=== PATIENT | male | born 1950 | race Caucasian/White ===

== ENCOUNTER 2019-07-28 11:30 | Outpatient (RCR) | payer MEDICARE, OTHER, SELFPAY ==
--- NOTE | 2019-06-03 14:28 | HP.PTEVAL ---
Patient's Visit Information GRAEME DURON is a 68 year old M referred to Physical Therapy by MADHAVI Farnsworth with a diagnosis of PD. Date of Evaluation: 06/03/19 Physical Therapist: DRISS Mccullough - Visit Plan Frequency: 2x /Week Duration: 4 Weeks Plan: 2X/ week for 4 weeks for balance activities, big movements, dual task movements, gait training with HEP - Subjective Findings: Dx since 2008. He uses a walking stick when he is out and about. He fell a couple days ago and he hurt his knees. Sometimes his PD meds work and others they don;t. They changed his meds and not sure they are helping. When he falls he feels like he is going fw and can not stop himself. He falls about 3-4X/ month. stairs: he goes recip with a hand rail. He also has a chair lift up his stairs. He has some trouble getting out of a chair. He has freezing episodes. He still drives. 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 He reports that he sleeps well. He notices that he is getting weaker in his arms and legs. He is not doing as much and keeps getting weaker. He does not do any exercises at home. He has an exercise bike at home. - Objective Gait: walks with decrease stride and decrease ability to cigar packer and picker his feel. Turns very slow with steppage shuffle. LE MMT: B hip flex, knee ext, knee flex, hip abd 4+/5, 1/2 normal ROM bridge, pt is bale toheel and toe raise holding onto the chair rail. FGA 11. Pt likes to freeze in the middle of turning 180 degrees and does not like to cigar packer and picker his feet. Sit to stand: pt not able to do so without the use of his UE's. Pt has trouble with rolling side to side with motor planning - Balance Scores Functional Gait Assessment Score: 11 % Disability: 63.3400 - Goals Goal 1:: I HEP including I riding his bike at home Goal Time Frame: 4-6 Weeks Goal 2:: Increase FGA by 5 points to decrease fall risk. Goal Time Frame: 4-6 Weeks Goal 3:: Be able to turn 180 degrees without hesitation or stopping his movement mid turn Goal Time Frame: 4-6 Weeks Goal 4:: Be able to sit to stand without using his arms to stand. Goal Time Frame: 4-6 Weeks - Rehabilitation Potential Rehabilitation Potential: Good - Anticipated Interventions Thank you for the opportunity to evaluate your patient. For Medicare and Medicare HMO plans, please review the plan of care and approve it. It will need to be FAXED BACK to us at [phone] for Medicare purposes. For Medicare only, by signing this I certify the plan of care. Please let me know if there are questions or concerns regarding this plan of care. Physician Signature: Date:
--- NOTE | 2019-07-02 12:45 | HP.PTREVAL_ITS ---
Rosalba Kaufman, NABIL-C, It has been my pleasure to treat GRAEME DURON over the last 8 visits for PD. Please see the progress note below for an update on the physical therapy plan of care! Subjective: Pt was trying to get his keys out of his pocket at the same time he was stepping down off the curb and landed on his walking stick and has a really sore spot on his R arm. Nothing else really hurts right now. He reports that there are weaks that he never falls and other times he has fallen 4 times in the same week. Pt feel that the is learning a lot of things that he can do at home. He is working on fw. bw and sw walks with the big steps and his is reminding him a lot at home. He is still driving and he feels safe driving. Objective/Function: sit to stand: pt is able to stand up without using his UE and has good balance when he does stand up. Turning 180 degrees: pt still does not sheepskin pickler his feet, has poor balance when turning and takes multiple shuffles to get turned 180 degrees. FGA: 12. Discussed in length about stopping and regaining balance and almost marching when he starts to fesinate with his feet at a door way and also picking up feet with turning 180 degrees Plan Plan: 2X/ week for 3 additional weeks for balance activities, ( include desc ending and ascending curb stesp, turning 180 degrees ( picking up feet almost like a march) ( include teaching pt how to break his ability to not take big steps and multiple attemots to start) big movements, dual task movements, gait training with HEP Goals Goal 1:: I HEP including I riding his bike at home Goal Time Frame: 4-6 Weeks Goal Progress: Progressing Goal 2:: Increase FGA by 5 points to decrease fall risk. Goal Time Frame: 4-6 Weeks Goal 3:: Be able to turn 180 degrees without hesitation or stopping his movement mid turn Goal Time Frame: 4-6 Weeks Goal Progress: Progressing Goal 4:: Be able to sit to stand without using his arms to stand. Goal Time Frame: 4-6 Weeks Goal Progress: Goal Met Anticipated Interventions Please do not hesitate to contact me at [phone] by phone or if you have questions or concerns regarding this new plan of care! Sincerely, Megan Vega, MPT
--- NOTE | 2019-07-28 11:57 | HP.PTDCSUM ---
HP - PT D/C Summary It has been my pleasure to treat GRAEME DURON under orders from ROSALVA FarnsworthC, for the diagnosis of PD for a total of 14 visit(s). Discharge Date: 07/28/19 Please see the following information for a summary of their discharge status. - Subjective Subjective: Pt reports that he has a bike and TM at home and will start exercising at home - Pain R SH Pain Intensity (Out of 10): 6 LB Pain Intensity (Out of 10): 4 - Overall Improvement % Improvement: 100 - Objective Objective/Function: LE MMT: B hip flex, hip abdm knee flex and knee ext and hip ext 5/5. Pt is now able to roll side to side in bed without issue or hesitation. FGA:21. Sit to stand: able without using arms to help on first attempt. Discussed DTD and pt wishes to be places on the wait list - Goals Goal 1:: I HEP including I riding his bike at home Goal Progress: Goal Met Goal 2:: Increase FGA by 5 points to decrease fall risk. Goal Progress: Goal Met Goal 3:: Be able to turn 180 degrees without hesitation or stopping his movement mid turn Goal Progress: Goal Met Goal 4:: Be able to sit to stand without using his arms to stand. Goal Progress: Goal Met - Plan Plan: DC PT/ Pt to go home and continue with exercises on his own. Pt is on the wait list for DTD class - D/C Information Discharge Comments: DC PT If there are questions or concerns regarding this patient's physical therapy, please feel free to call me at [phone]. Thank you for the referral of this patient. Sincerely, Megan Vega, MPT
== END 2019-07-28 19:00 | disposition home or self-care (01) ==
LOC: PT 11:30
PROVIDERS: Family Provider Family Medicine; PCP Family Medicine; Referring Provider Nurse Practitioner Family; Visit Provider Nurse Practitioner Family
DX: G20 Parkinson's disease (principal)
CPT/HCPCS: 97110; 97161; 97530

== ENCOUNTER 2019-10-01 16:55 | Emergency (ER) | payer MEDICARE, OTHER, SELFPAY ==
[2019-10-01 16:57] VITALS: BP 140/83; PULSE 88; RESP 15; TEMP 36.6; O2SAT 97; BMI 29.9
[2019-10-01 16:59] VITALS: BP 140/83; PULSE 87; RESP 20; O2SAT 97
--- NOTE | 2019-10-01 17:35 | CT_ITS ---
STUDY: CT ABDOMEN AND PELVIS WITHOUT CONTRAST REASON FOR EXAM: Male, 69 years old. HERNIA PAIN LOWER ABDOMEN. Hx of Parkinson''s RADIATION DOSAGE (If Supplied By Facility): CTDIvol = ( 9.35 ) mGy, DLP = ( 432.25 ) mGycm TECHNIQUE: Transaxial images were obtained from the dome of the diaphragm to the symphysis pubis without oral contrast, and without intravenous contrast. Sagittal and coronal images were reconstructed. Individualized dose optimization techniques were used for this CT. COMPARISON: None. FINDINGS: The visualized lung bases are unremarkable. The visualized portions of the heart are within normal limits. Normal liver. Normal gallbladder and extrahepatic biliary system. Normal spleen. Normal pancreas. Normal bilateral adrenal glands. 2 cm parapelvic cyst in the right kidney. 1.5 cm parapelvic cyst in the left kidney. Normal visualized stomach. Normal small intestine. Fecal retention in the colon. The appendix is visualized and appears normal. Calcified abdominal aorta. Focal infrarenal abdominal aortic aneurysm measuring 2.7 cm. Normal inferior vena cava. Normal retroperitoneum. Normal urinary bladder. The prostate measures 4.3 x 5.3 cm. Fatty density at the inguinal canals. A loop of small bowel is noted extending into the right inguinal canal. Normal abdominal wall. Mild degenerative vertebral changes. CT/Abdomen/Pelvis without Cont IMPRESSION: Diffuse colonic fecal retention. Parapelvic renal cysts bilaterally. A loop of small bowel is noted extending into the right inguinal canal. No sign of bowel obstruction. Focal small infrarenal abdominal aortic aneurysm. Electronically Signed: Alberto Clarke DO at 18:28 EST Tel [phone], Service support ,
[2019-10-01 17:58] LABS: Absolute Lymphocyte Count 1.17 X10^3/uL (0.83-4.51); Absolute Neutrophil Count 4.3 X10^3/uL (2.0-7.7); Basophil# 0.05 X10^3/uL; Basophil% 0.7 % (0-1); Eosinophil# 0.62 X10^3/uL; Hemoglobin 13.5 g/dL (13.0-16.5); Lymphocyte # 1.17 X10^3/ul (4.0); Mean Corp Hgb Conc 33.8 g/dL (32-36); Mean Corpuscular Hgb 32.4 pg (27.0-32.0); Mean Corpuscular Volume 95.9 fL (80-94); Mean Platelet Vol. 9.2 fl (6.2-12.0); Monocyte# 0.77 X10^3/uL; Monocyte% 11.2 % (0-10); NRBC Flagged by Analyzer 0 % (0-5); Neutrophil # 4.27 X10^3/uL (2.7-7.7); Platelet Count 218 K/mm3 (150-450); RBC Distribution Width CV 11.6 % (11.6-14.6); RBC Distribution Width SD 41.1 fl (35.1-43.9); Red Blood Count 4.17 M/mm3 (4.6-6.2); White Blood Count 6.9 K/mm3 (4.4-11.0)
[2019-10-01 18:18] LABS: ALB/GLOB Ratio 1.1 RATIO (0.9-2.4); AST(SGOT) 15 U/L (15-37); Alanine Aminotransfer ALT/SGPT 9 U/L (16-61); Albumin, Serum 3.4 g/dL (3.2-5.0); Alkaline Phosphatase 77 U/L (45-117); Anion Gap 4 (5-15); BUN 23 mg/dL (7-18); BUN/Creat Ratio 21.5 RATIO (10-20); Calcium,Total 8.7 mg/dL (8.5-10.1); Chloride 109 mmol/L (98-107); Creatinine, Serum 1.07 mg/dL (0.70-1.30); EST Glomerular Filtration Rate 72 mL/min (>60); Est Glom Filt Rate - Afr Amer 88 mL/min (>60); Estimated Creatinine Clearance 65.38 ml/min; Globulin 3.1 g/dL (2.2-4.2); Glucose 116 mg/dL (74-106); Lipase 135 U/L (73-393); Potassium 4.1 mmol/L (3.5-5.1); Protein, Total 6.5 g/dL (6.4-8.2); Sodium Level 141 mmol/L (136-145)
[2019-10-01 19:04] LABS: Bacteria 0 SEEN /hpf (None Seen); Mucous, Urine 0 SEEN /hpf (<or=2+); Red Blood Cells-Urine 0 SEEN /hpf (0-5); White Blood Cells 0 SEEN /hpf (0-5)
[2019-10-01 19:10] LABS: Color, Urine Yellow (Yellow); Glucose, Dipstick Normal (Normal); Ketone-Dipstick 5 mg/dl (Negative); Leukocyte Esterase-Dipstick 25 /ul (Negative); Nitrite-Dipstick Negative (Negative); Occult Blood-Urine Negative /ul (Negative); Protein-Dipstick Negative (Negative); Urine Bilirubin Dipstick Negative (Negative); Urine Clarity Cloudy (Clear); Urine Urobilinogen 1 mg/dl (Normal)
[2019-10-01 19:32] LABS: Amorphous Sediment 3+; Squamous Epithelial Cells - UA 0-5 SEEN /hpf (0-5)
[2019-10-01 20:44] VITALS: BP 134/107; PULSE 79; RESP 15; O2SAT 96
--- NOTE | 2019-10-01 21:07 | ED.DCSUM_ITS ---
- ER Visit Summary Date of Service: 10/01/19 Chief Complaint: Abdominal pain History of Present Illness: The patient is a 69 M who presents with abdominal pain that began today. Patient states the pain is over the lower abdomen. Patient states he knows he has hernias in his lower abdomen and felt like the hernia on his right side was more swollen today. Patient states this is where the pain was earlier today. Patient called EMS. Patient states that long term to the emergency department while in the squad his pain resolved and he has not had any further pain. Patient denies any dysuria or hematuria. Patient admits to urinary frequency. Patient denies any nausea or vomiting. Patient denies any diarrhea, melena, or hematochezia. Physical Examination: Vital signs are stable. Patient is afebrile. Patient is in no acute distress. Oral mucosa is pink and moist. Neck is supple. Trachea is midline. There is no JVD. Heart was regular rate and rhythm. Lungs are clear and equal bilaterally. Abdomen is soft. Bowel sounds are normal. There is some mild right lower abdominal tenderness. There is no rebound or guarding noted. There is no tenderness over the right inguinal canal. Cranial nerves II through XII are intact. There are no focal motor or sensory deficits noted. Extremities are intact. There is no calf tenderness or edema. Test Results: CBC was normal. Basic metabolic profile was normal. Urinalysis does not show any evidence of urinary tract infection. CT scan of the abdomen and pelvis was obtained. There is colonic fecal retention. There is a right inguinal hernia containing bowel but there is no bowel obstruction. Emergency Department Course and Treatment: Patient was feeling better on reevaluation. Patient had no further episodes of pain here in the emergency department. Patient was instructed to follow-up with his primary care physician in 5 to 7 days. Patient was instructed to follow-up with his surgeon as needed. Patient understood and was agreeable with the plan. All questions were answered. Disposition: Discharge home Impression: Abdominal pain This note was generated with [employer] dictation software. It may contain incorrect words, spelling, and punctuation that were not noted in review of the chart prior to signing ED Disposition - Plan for ED Patient: Disposition: Home or Assisted Living Diagnosis: Abdominal pain Instructions: CONSTIPATION (Adult), ABDOMINAL PAIN, Unkown Cause, (Male) Referrals: Bharathi Lyle MD [Primary Care Provider] - 3-5 Days
[2019-10-01 21:29] VITALS: BP 139/93; PULSE 82; RESP 21; O2SAT 97
== END 2019-10-01 21:30 | disposition home or self-care (01) ==
PROVIDERS: Emergency Provider Emergency Medicine; PCP Family Medicine; Referring Provider Family Medicine
DX: R10.30 Lower abdominal pain, unspecified (principal); R35.0 Frequency of micturition; K40.91 Unilateral inguinal hernia, without obstruction or gangrene, recurrent; G20 Parkinson's disease; Z79.82 Long term (current) use of aspirin; Z79.899 Other long term (current) drug therapy; F17.290 Nicotine dependence, other tobacco product, uncomplicated
CPT/HCPCS: 74176; 80053; 81001; 83690; 85025; 99285; J7030; A4216

== ENCOUNTER 2019-11-19 08:55 | Emergency (ER) | payer MEDICARE, OTHER, SELFPAY ==
[2019-11-19 08:56] VITALS: BP 117/80; PULSE 85; RESP 16; O2SAT 97
[2019-11-19 08:57] VITALS: BP 123/41; PULSE 90; RESP 17; TEMP 37; O2SAT 96; BMI 28.9
--- NOTE | 2019-11-19 09:17 | ED.DCSUM_ITS ---
- ER Visit Summary Date of Service: 11/19/19 Chief Complaint: Right inguinal and abdominal pain History of Present Illness: The patient is a 69 M who presents with right inguinal and right lower abdominal pain that began this morning. Patient states the pain woke him up. Patient states he has a history of a hernia in the right inguinal area. Patient states that he is usually able to reduce it on his own. Patient states that today he was unable to reduce it. Patient states the pain is getting progressively worse. Patient denies any nausea or vomiting. Patient denies any diarrhea. Patient denies any melena or hematochezia. Patient denies any dysuria or hematuria. Patient denies any radiation of the pain. Patient denies any fevers or chills. Physical Examination: Vital signs are stable. Patient is afebrile. Patient is in no acute distress. Oral mucosa is pink and moist. Neck is supple. Trachea is midline. There is no JVD. Heart was regular rate and rhythm. Lungs are clear and equal bilaterally. Abdomen is soft. Bowel sounds are normal. There is right lower quadrant tenderness. There is no rebound or guarding noted. There is a right inguinal hernia. There is tenderness to palpation over this. There is no erythema or warmth over this. Cranial nerves II through XII are intact. There are no focal motor or sensory deficits noted. Test Results: CBC and comprehensive metabolic profile were obtained and were essentially within normal limits. Lactate was normal. Emergency Department Course and Treatment: Patient was given morphine and Zofran here. Patient is feeling better. Patient was placed in Trendelenburg position. The hernia was able to be reduced. Patient felt better. Patient was ambulated here in the emergency department. Patient did not have recurrence of his hernia. Patient states he has an appoint with Dr. Tapia. Patient was instructed to follow-up with him in 5 to 7 days for evaluation of herniorrhaphy. Patient and family understood and were agreeable with the plan. All questions were answered. Disposition: Discharge home Impression: 1. Right inguinal hernia This note was generated with [employer] Alertation software. It may contain incorrect words, spelling, and punctuation that were not noted in review of the chart prior to signing ED Disposition - Plan for ED Patient: Disposition: Home or Assisted Living Diagnosis: Right inguinal hernia Instructions: HERNIA (Inguinal, Ventral, Umbilical) Referrals: Bharathi Lyle MD [Primary Care Provider] - 5-7 Days Earnest Tapia MD [STAFF PHYSICIAN] - 3-5 Days
[2019-11-19 09:32] LABS: Absolute Lymphocyte Count 0.93 X10^3/uL (0.83-4.51); Absolute Neutrophil Count 8.5 X10^3/uL (2.0-7.7); Basophil# 0.04 X10^3/uL; Basophil% 0.4 % (0-1); Eosinophil# 0.18 X10^3/uL; Eosinophils% 1.7 % (0-5); Hematocrit 44.5 % (40-54); Hemoglobin 14.7 g/dL (13.0-16.5); Lymphocyte # 0.93 X10^3/ul (4.0); Mean Corpuscular Hgb 31.3 pg (27.0-32.0); Mean Corpuscular Volume 94.7 fL (80-94); Mean Platelet Vol. 9.4 fl (6.2-12.0); Monocyte# 0.74 X10^3/uL; Monocyte% 7.1 % (0-10); NRBC Flagged by Analyzer 0 % (0-5); Neutrophil # 8.46 X10^3/uL (2.7-7.7); Neutrophil % 81.5 % (47-70); Platelet Count 250 K/mm3 (150-450); RBC Distribution Width CV 11.9 % (11.6-14.6); RBC Distribution Width SD 41.1 fl (35.1-43.9); White Blood Count 10.4 K/mm3 (4.4-11.0)
[2019-11-19 09:43] LABS: ALB/GLOB Ratio 1.1 RATIO (0.9-2.4); AST(SGOT) 17 U/L (15-37); Alanine Aminotransfer ALT/SGPT 9 U/L (16-61); Albumin, Serum 3.9 g/dL (3.2-5.0); Alkaline Phosphatase 84 U/L (45-117); Anion Gap 3 (5-15); BUN 23 mg/dL (7-18); BUN/Creat Ratio 22.3 RATIO (10-20); Calcium,Total 9.4 mg/dL (8.5-10.1); Chloride 104 mmol/L (98-107); Creatinine, Serum 1.03 mg/dL (0.70-1.30); EST Glomerular Filtration Rate 76 mL/min (>60); Est Glom Filt Rate - Afr Amer 92 mL/min (>60); Estimated Creatinine Clearance 70.06 ml/min; Globulin 3.4 g/dL (2.2-4.2); Glucose 123 mg/dL (74-106); Potassium 4.3 mmol/L (3.5-5.1); Protein, Total 7.3 g/dL (6.4-8.2); Sodium Level 137 mmol/L (136-145)
[2019-11-19] MEDS: Ondansetron 4 MG/2 ML Vial IV (09:43)
[2019-11-19] MEDS: Morphine 4 MG/ML Syringe IV (09:43)
[2019-11-19 09:55] LABS: Lactic Acid 1.7 mmol/L (0.4-1.9)
[2019-11-19 11:13] VITALS: BP 142/80; PULSE 84; RESP 18; O2SAT 97
== END 2019-11-19 11:14 | disposition home or self-care (01) ==
PROVIDERS: Emergency Provider Emergency Medicine; PCP Family Medicine
DX: K40.90 Unilateral inguinal hernia, without obstruction or gangrene, not specified as recurrent (principal); G20 Parkinson's disease; F17.200 Nicotine dependence, unspecified, uncomplicated
CPT/HCPCS: 80053; 83605; 85025; 96374; 96375; 99284; A4216; J2405

== ENCOUNTER 2020-04-19 13:11 | Emergency (ER) | payer MEDICARE, OTHER, SELFPAY ==
[2020-04-19 13:12] VITALS: BP 138/79; PULSE 82; RESP 16; TEMP 36.6; O2SAT 98; BMI 30.1
--- NOTE | 2020-04-19 13:31 | ED.VIS.GEN ---
History of Present Illness Chief Complaint: Abd Pain Informant: Patient Onset: Yesterday Current Severity: Mild Maximum Severity: Moderate Narrative: Patient presents with right lower quadrant pain that started last evening. He has a known inguinal hernia. He states he has not been able to reduce it since last evening. He was initially supposed to see Dr. Tapia regarding surgery in November, but this was delayed secondary to the Covid pandemic. Patient denies vomiting. He does not believe he passed gas or had a bowel movement today. - Past Medical History (1) Parkinsons Status: Chronic (2) GERD (gastroesophageal reflux disease) Status: Chronic (3) Right inguinal hernia Status: Chronic Past Medical History - Allergies and Home Meds Allergies/Adverse Reactions: Allergies Penicillins [PCN] Allergy (Verified 04/19/20 13:15) Unknown ALLERGY SINCE CHILDHOOD Primary Care Physician: Earnest Tapia MD [STAFF PHYSICIAN] - As soon as possible Prior records reviewed: Yes Lives: Spouse/ Significant Other Smoking Status: Current every day smoker Review of Systems General: Denies: Chills, Fever Eyes: Denies: Visual changes - bilaterally ENT: Denies: Bilateral ear pain Cardiovascular: Denies: Chest pain Respiratory: Denies: Dyspnea, Cough Gastrointestinal: Reports: Abdominal pain. Denies: Nausea, Vomiting Genitourinary: Denies: Dysuria Hematologic: Denies: Easy bruising, Easy bleeding Allergy: Denies: Uticaria Physical Exam Vital Signs/Narrative: Vital Signs Temp Pulse Resp BP Pulse Ox 04/19/20 13:12 97.8 F 82 16 138/79 H 98 Inital Vital Signs reviewed: Yes General: Well nourished, Well developed Head: Normocephalic ENT: Moist mucous membranes Neck: Supple Cardiovascular: Regular rate, Regular rhythm Respiratory: No distress, CTA bilaterally Abdomen: Soft, Nontender, - - Hernia noted to the right groin line. Area is mildly tender to touch. Skin: Normal color Neurological: Alert, Oriented x3 Psychological: Normal affect Diagnostic/Tx/Re-eval Laboratory Results 04/19/20 04/19/20 04/19/20 13:17 13:17 13:55 WBC 8.0 RBC 4.10 L Hgb 13.2 Hct 39.7 L MCV 96.8 H MCH 32.2 H MCHC 33.2 RDW Std Deviation 42.3 RDW Coeff of Maryjane 11.9 Plt Count 225 MPV 9.7 Immature Gran % (Auto) 0.400 Neut % (Auto) 72.7 H Lymph % (Auto) 13.8 L [place] % (Auto) 8.3 Eos % (Auto) 4.3 Baso % (Auto) 0.5 Absolute Neuts (auto) 5.8 Absolute Lymphs (auto) 1.10 Nucleated RBC % 0 Sodium 140 Potassium 3.7 Chloride 107 Carbon Dioxide 30.0 Anion Gap 3 L BUN 26 H Creatinine 1.07 Estim Creat Clear Calc 65.38 Est GFR (MDRD) Af Amer 88 Est GFR (MDRD) Non-Af 72 BUN/Creatinine Ratio 24.3 H Glucose 103 Lactic Acid 0.6 Calcium 8.5 - Medical Decision Making Patient was ordered morphine and Zofran as well as ice pack to the groin and to place him in Trendelenburg position. Patient had ice pack in Trendelenburg position and hernia spontaneously reduced. He was never given the morphine. At this time patient sitting upright in bed no acute distress. Right groin examination is unremarkable. He will follow-up with Dr. Pardo as an outpatient. ED Disposition - Plan for ED Patient: Disposition: Home or Assisted Living Diagnosis: Right inguinal hernia Instructions: ED Hernia Inguinal Referrals: Earnest Tapia MD [STAFF PHYSICIAN] - As soon as possible
[2020-04-19 13:38] LABS: Absolute Neutrophil Count 5.8 X10^3/uL (2.0-7.7); Basophil# 0.04 X10^3/uL; Basophil% 0.5 % (0-1); Eosinophil# 0.34 X10^3/uL; Eosinophils% 4.3 % (0-5); Hematocrit 39.7 % (40-54); Hemoglobin 13.2 g/dL (13.0-16.5); Lymphocyte % 13.8 % (19-41); Mean Corp Hgb Conc 33.2 g/dL (32-36); Mean Corpuscular Hgb 32.2 pg (27.0-32.0); Mean Corpuscular Volume 96.8 fL (80-94); Mean Platelet Vol. 9.7 fl (6.2-12.0); Monocyte# 0.66 X10^3/uL; Monocyte% 8.3 % (0-10); NRBC Flagged by Analyzer 0 % (0-5); Neutrophil # 5.82 X10^3/uL (2.7-7.7); Neutrophil % 72.7 % (47-70); Platelet Count 225 K/mm3 (150-450); RBC Distribution Width CV 11.9 % (11.6-14.6); RBC Distribution Width SD 42.3 fl (35.1-43.9)
[2020-04-19 13:46] LABS: Anion Gap 3 (5-15); BUN 26 mg/dL (7-18); BUN/Creat Ratio 24.3 RATIO (10-20); Calcium,Total 8.5 mg/dL (8.5-10.1); Chloride 107 mmol/L (98-107); Creatinine, Serum 1.07 mg/dL (0.70-1.30); EST Glomerular Filtration Rate 72 mL/min (>60); Est Glom Filt Rate - Afr Amer 88 mL/min (>60); Estimated Creatinine Clearance 65.38 ml/min; Glucose 103 mg/dL (74-106); Potassium 3.7 mmol/L (3.5-5.1); Sodium Level 140 mmol/L (136-145)
[2020-04-19 14:26] LABS: Lactic Acid 0.6 mmol/L (0.4-1.9)
[2020-04-19 15:48] VITALS: BP 103/62; PULSE 74; RESP 15; O2SAT 98
== END 2020-04-19 15:49 | disposition home or self-care (01) ==
PROVIDERS: Emergency Provider Emergency Medicine; PCP Family Medicine
DX: K40.90 Unilateral inguinal hernia, without obstruction or gangrene, not specified as recurrent (principal); G20 Parkinson's disease; K21.9 Gastro-esophageal reflux disease without esophagitis; F17.200 Nicotine dependence, unspecified, uncomplicated; Z88.0 Allergy status to penicillin
CPT/HCPCS: 80048; 83605; 85025; 96361; 96374; 96375; 99285; A4216

== ENCOUNTER 2020-05-17 09:00 | Outpatient (RCR) | payer MEDICARE, OTHER, SELFPAY ==
--- NOTE | 2020-04-21 13:55 | HP.PTEVAL ---
Patient's Visit Information GRAEME DURON II is a 69 year old M referred to Physical Therapy by MADHAVI Farnsworth with a diagnosis of PD. Date of Evaluation: 04/21/20 Physical Therapist: DRISS Mccullough - Visit Plan Frequency: 2x /Week Duration: 2 Months Plan: 2X/ week for stairs, gait training, 180 degree turns, opening doors and walking through a doorway, supine to sit and sit to supine transfers, balance activities, dual tasking activities with HEP - Subjective Pt reports that his 2 Dr's disagree about him being over medicated. He gave up on doing his regular exercise and all his pants have knee patches becuase he has been falling a lot. The best he has done was fall 3 X in one day. The last time he fell was last week while he was walking in his barn. He did not get hurt other than a bruised rib. He has a hard time remembering to take his walking stick. He has steps at home and uses them everyday and has a chair riser on the steps and he uses it most of the time. He is able to get up off the floor when he falls. He is still driving. He reports that he has some coordingation issues such as moving his leg and opening the door at the same time. No Hallucinations. - Objective Gait: walks with a walking stick with increase B feet shuffle and decrease stride length. Occ veering present. Pt struggles with shuffled gait with turning 180 degrees and when coming to a door way he shuffles and has a hard time advancing through the doorway especially if he has to hold a door open. LE MMT: B hip flex 4+/5, B knee flex 4+/5, B knee ext, B hip abd 4+/5, Bridge 1/2 normal ROM. Sit to supine... pt struggles to get legs up and get supine. Pt struggles to go from supine to sit. Sit to stand: Able to get up without using UE on 3 rd attempt with a lot of effort. Stairs: up and down on occ recip with a walking stick and one hand rails with min A. TU.48 seconds. FGA: 10 - Balance Scores Functional Gait Assessment Score: 10 % Disability: 66.6700 - Goals Goal 1:: I HEP Goal Time Frame: 4-6 Weeks Goal 2:: Be able to go from sitting to supine and supine to sitting with ease and not a struggle on first attempt Goal Time Frame: 4-6 Weeks Goal 3:: Be able to walk 200 feet without shuffling with least restrictive device with CGA Goal Time Frame: 4-6 Weeks Goal 4:: Be able to walk through a doorway, having to open and hold open the door, without freezing on first attempt 3/3 times Goal Time Frame: 4-6 Weeks Goal 5:: Be able to turn 180 dgrees such as when turning around when walking or to square up to a chair without shuffling or mini steppage gait Goal Time Frame: 4-6 Weeks Goal 6:: Be able to go up and down stairs recip with least restircitive device with CGA Goal Time Frame: 4-6 Weeks - Anticipated Interventions Patient/Client Instruction: Educate patient on: Condition, Plan of Care For the Purpose of:: To improve nutrient delivery to tissue, To increase oxygenation perfusion, To improve muscle performance and motor function, To improve ability to perform ADL's, To increase tolerance to activity/condition/position, To improve performance and independence with ADL's, To decrease level of supervision to perform tasks, To improve ability of physical actions for home/community/work/leisure, To improve gait and locomotor functions, To increase flexibility/ROM, To improve endurance, To improve balance, To improve safety with gait, To assume or resume ADL's, To improve safety, To foster healthy habits, To improve decision making, To improve self management, To improve tolerance to ADL's Therapeutic Exercise to Include: Strength training, Endurance training, Balance training, Body mechanics, Postural training, Flexibilty training, Gait and locomotor training, Neuromotor development, Active ROM For the Purpose of:: To improve ability to perform ADL's, To increase tolerance to activity/condition/position, To improve performance and independence with ADL's, To decrease level of supervision to perform tasks, To improve ability of physical actions for home/community/work/leisure, To improve gait and locomotor functions, To improve health of tissue, To increase flexibility/ROM, To improve endurance, To improve balance, To improve safety with gait, To improve safety, To foster healthy habits, To improve decision making, To improve ability to perform tasks related to life management, To improve tolerance to ADL's Functional Training to Include: Gait training For the Purpose of:: To improve gait and locomotor functions, To improve safety with gait Thank you for the opportunity to evaluate your patient. For Medicare and Medicare HMO plans, please review the plan of care and approve it. It will need to be FAXED BACK to us at [phone] for Medicare purposes. For Medicare only, by signing this I certify the plan of care. Please let me know if there are questions or concerns regarding this plan of care. Physician Signature: Date:
--- NOTE | 2020-07-07 12:36 | HP.PTDCNRP_ITS ---
GRAEME DURON II was seen in my office for initial evaluation on 04/21/20. The following Plan of Care was established for this patient: Initial Frequency: 2x /Week Initial Duration: 2 Months Patient/Client Instruction: Educate patient on: Condition, Plan of Care For the Purpose of:: To improve nutrient delivery to tissue, To increase oxygenation perfusion, To improve muscle performance and motor function, To improve ability to perform ADL's, To increase tolerance to activity/ condition/position, To improve performance and independence with ADL's, To decrease level of supervision to perform tasks, To improve ability of physical actions for home/community/work/leisure, To improve gait and locomotor functions, To increase flexibility/ROM, To improve endurance, To improve balance, To improve safety with gait, To assume or resume ADL's, To improve safety, To foster healthy habits, To improve decision making, To improve self management, To improve tolerance to ADL's Therapeutic Exercise to Include: Strength training, Endurance training, Balance training, Body mechanics, Postural training, Flexibilty training, Gait and locomotor training, Neuromotor development, Active ROM For the Purpose of:: To improve ability to perform ADL's, To increase tolerance to activity/condition/position, To improve performance and independence with ADL's, To decrease level of supervision to perform tasks, To improve ability of physical actions for home/community/work/leisure, To improve gait and locomotor functions, To improve health of tissue, To increase flexibility/ROM, To improve endurance, To improve balance, To improve safety with gait, To improve safety, To foster healthy habits, To improve decision making, To improve ability to perform tasks related to life management, To improve tolerance to ADL's Functional Training to Include: Gait training For the Purpose of:: To improve gait and locomotor functions, To improve safety with gait This patient was last seen in our office 05/17/20. Pertinent comments regarding their Physical therapy will appear below: DC PT as pt was in the hospital and a new POC would need to be established when the pt decides to return back to PT. At this point I will be discontinuing this patient from physical therapy. I would be happy to see this patient again in the future if found appropriate by the physician. Thank you! Megan Vega, MPT
== END 2020-05-17 19:00 | disposition home or self-care (01) ==
LOC: PT 09:00
PROVIDERS: PCP Family Medicine; Referring Provider Nurse Practitioner Family; Visit Provider Nurse Practitioner Family
DX: G20 Parkinson's disease (principal)
CPT/HCPCS: 97110; 97161

== ENCOUNTER 2020-06-11 17:55 | Inpatient (IN) | payer MEDICARE, OTHER, SELFPAY ==
[2020-06-11 17:56] VITALS: BP 165/84; PULSE 88; RESP 16; TEMP 37.1; O2SAT 96; BMI 28.0
--- NOTE | 2020-06-11 18:52 | EKG12_ITS ---
Test Reason : GEN ILLNESS Blood Pressure : / mmHG Vent. Rate : 082 BPM Atrial Rate : 082 BPM P-R Int : 196 ms QRS Dur : 094 ms QT Int : 378 ms P-R-T Axes : 053 011 015 degrees QTc Int : 441 ms Normal sinus rhythm Normal ECG Confirmed by ANGELICA COHEN, SADIE ([id number]), subeditor LING TRUJILLO ([id number]) on 06/16/2020 8:37:41 AM Referred By: Sean Ricks Confirmed By:SADIE DOMINGUEZ MD
--- NOTE | 2020-06-11 18:58 | ED.DCSUM_ITS ---
History of Present Illness Chief Complaint: General Illness Informant: Patient, Family Narrative: Patient is a 69-year-old male with a history of Parkinson's disorder who presents to the emergency department for generalized weakness. The symptoms have been present over the past couple weeks but progressively getting worse. He states that around 3:00 PM he feels that he has absolutely no energy and has difficult time getting around. Until he falls asleep and wakes up the next morning he starts to feel better at that time. He did see his neurologist for this complaint and had a decrease in his Requip. This was changed last week. Sunday he did start to feel better after this but then his symptoms recurred over the past 4 days. He denies any other symptoms including any headache or vision changes. No chest pain, shortness of breath or heart palpitations. Denies any recent illnesses including any cough, cold, congestion. No fevers or chills. Denies any diarrhea or nausea/vomiting. He does have some urinary frequency. He does have a history of BPH. Past Medical History - Allergies and Home Meds Allergies/Adverse Reactions: Allergies Penicillins [PCN] Allergy (Verified 06/11/20 21:18) Unknown ALLERGY SINCE CHILDHOOD Past Medical History: - - Parkinson's, BPH Smoking Status: Never smoker Review of Systems All systems negative except as indicated General: Reports: Malaise. Denies: Chills, Fever, Sweats Eyes: Denies: Visual changes - bilaterally, Diplopia ENT: Denies: Rhinorrhea, Sore throat Cardiovascular: Denies: Chest pain, Palpitations Respiratory: Denies: Dyspnea, Cough, Dyspnea on exertion Gastrointestinal: Denies: Abdominal pain, Nausea, Vomiting, Diarrhea, Melena, Hematochezia Genitourinary: Reports: Frequency. Denies: Dysuria, Hematuria Musculoskeletal: Denies: Back pain, Extremity Pain Skin: Denies: Rash, Wounds Neurological: Reports: Weakness - Generalized. Denies: Headache, Numbness Physical Exam Vital Signs/Narrative: Vital Signs Temp Pulse Resp BP Pulse Ox 06/11/20 17:56 98.8 F 88 16 165/84 H 96 Inital Vital Signs reviewed: Yes General: Well nourished, Well developed, No Acute Distress Head: Normocephalic, Atraumatic Eyes: Perrl, EOMI ENT: Moist mucous membranes, No rhinorrhea Neck: Supple, Nontender Cardiovascular: Regular rate, Regular rhythm, No murmurs Respiratory: No distress, CTA bilaterally, Chest nontender Abdomen: Soft, Nontender, Nondistended, Normal bowel sounds Back: Nontender, Normal Inspection Extremities: Nontender, No edema Skin: Normal color, No rash Neurological: Alert, Oriented x3, Cranial nerves II-XII grossly intact, Normal Strength, Normal Sensation, - - Intentional tremor. 5 out of 5 muscle strength in all 4 extremities. Psychological: Normal affect, Normal Mood Diagnostic/Tx/Re-eval - EKG Initial EKG Interpretation: - - Rate of 82 bpm and normal sinus rhythm. Normal intervals. Normal axis. No ST elevations or depressions appreciated. No T wave abnormalities. - Medical Decision Making Patient presents to the ED for generalized weakness. Upon arrival to the emerge department vital signs within normal limits. He does not appear in any acute distress. Has no focal findings. Will check basic lab work along with EKG, chest x-ray and urinalysis. Patient's work-up did not reveal any reason to explain his significant weakness. This is generalized. He has been having a very difficult time taking care of himself at home. Family at bedside does not feel like he is getting appropriate care at home. His is the only other person lives in the home and she has a history of strokes and currently has a fractured clavicle. Patient is agreeable to possible placement for rehab services. Will bring into the hospital for further evaluation and management this time. He understands and is agreeable this plan. ED Disposition - Plan for ED Patient: Disposition: Acute Care Hospital [facility] Diagnosis: Generalized weakness, Parkinson's disease
--- NOTE | 2020-06-11 19:03 | RAD_ITS ---
STUDY: X-RAY CHEST REASON FOR EXAM: Male, 69 years old. PT REPORTS GENERALIZED WEAKNESS, LETHARGY AND LOSS OF APPETITE. TECHNIQUE: AP portable COMPARISON: 06/03/2017 FINDINGS: Lungs are mildly hyperinflated and there is mild interstitial thickening in the mid and lower lung zones. There is no demonstrated pleural abnormality. Normal size heart. Normal mediastinum and cinthya. Normal visualized pulmonary arteries. Tortuous mildly calcified aortic arch and descending thoracic aorta. Dorsal spine demonstrates mild scoliosis and degenerative change as well as multilevel chronic compression deformities... Normal visualized ribs, clavicles, and shoulders. There is no demonstrated abnormality of the visualized soft tissue structures of the upper abdomen. RAD/Chest 1 View (Portable) IMPRESSION: COPD. No acute cardiopulmonary pathology Electronically Signed: Gerardo Camarillo MD at 19:16 EDT , Service support ,
[2020-06-11 19:04] LABS: Absolute Lymphocyte Count 1.22 X10^3/uL (0.83-4.51); Absolute Neutrophil Count 6.5 X10^3/uL (2.0-7.7); Basophil# 0.05 X10^3/uL; Basophil% 0.6 % (0-1); Eosinophil# 0.36 X10^3/uL; Eosinophils% 4.1 % (0-5); Hematocrit 40.7 % (40-54); Hemoglobin 13.4 g/dL (13.0-16.5); Lymphocyte # 1.22 X10^3/ul (4.0); Lymphocyte % 13.8 % (19-41); Mean Corp Hgb Conc 32.9 g/dL (32-36); Mean Corpuscular Hgb 32.2 pg (27.0-32.0); Mean Corpuscular Volume 97.8 fL (80-94); Mean Platelet Vol. 9.5 fl (6.2-12.0); Monocyte# 0.67 X10^3/uL; Monocyte% 7.6 % (0-10); NRBC Flagged by Analyzer 0 % (0-5); Neutrophil % 73.8 % (47-70); Platelet Count 342 K/mm3 (150-450); RBC Distribution Width CV 11.9 % (11.6-14.6); RBC Distribution Width SD 42.5 fl (35.1-43.9); Red Blood Count 4.16 M/mm3 (4.6-6.2); White Blood Count 8.8 K/mm3 (4.4-11.0)
[2020-06-11 19:04] LABS: Bacteria 0 SEEN /hpf (None Seen); Mucous, Urine 0 SEEN /hpf (<or=2+); Red Blood Cells-Urine 0 SEEN /hpf (0-5)
[2020-06-11 19:05] LABS: Color, Urine Yellow (Yellow); Glucose, Dipstick Normal (Normal); Ketone-Dipstick Negative (Negative); Leukocyte Esterase-Dipstick 25 /ul (Negative); Nitrite-Dipstick Negative (Negative); Occult Blood-Urine Negative /ul (Negative); Protein-Dipstick Negative (Negative); Specific Gravity, Urine 1.015 (1.002-1.030); Urine Bilirubin Dipstick Negative (Negative); Urine Clarity Cloudy (Clear); Urine Urobilinogen 4 mg/dl (Normal)
[2020-06-11 19:20] LABS: Amorphous Sediment 2+; White Blood Cells 0-5 SEEN /hpf (0-5)
[2020-06-11 19:21] LABS: Squamous Epithelial Cells - UA 0-5 SEEN /hpf (0-5)
[2020-06-11 19:33] LABS: AST(SGOT) 17 U/L (15-37); Alanine Aminotransfer ALT/SGPT 19 U/L (16-61); Albumin, Serum 3.5 g/dL (3.2-5.0); Alkaline Phosphatase 86 U/L (45-117); Anion Gap 4 (5-15); BUN 28 mg/dL (7-18); BUN/Creat Ratio 25.9 RATIO (10-20); Calcium,Total 8.6 mg/dL (8.5-10.1); Chloride 106 mmol/L (98-107); Creatinine, Serum 1.08 mg/dL (0.70-1.30); EST Glomerular Filtration Rate 72 mL/min (>60); Est Glom Filt Rate - Afr Amer 87 mL/min (>60); Estimated Creatinine Clearance 64.78 ml/min; Globulin 3.6 g/dL (2.2-4.2); Glucose 102 mg/dL (74-106); Magnesium 2.5 mg/dL (1.6-2.6); Potassium 4.2 mmol/L (3.5-5.1); Protein, Total 7.1 g/dL (6.4-8.2); Sodium Level 140 mmol/L (136-145)
[2020-06-11 19:34] LABS: Phosphorus 2.6 mg/dL (2.5-4.9)
[2020-06-11 19:51] VITALS: BP 176/94; PULSE 84; RESP 17; O2SAT 98
--- NOTE | 2020-06-11 20:36 | PCM.HP.STD ---
History of Present Illness Date of Admission: 06/11/20 Chief Complaint: Weakness The patient is a 69 year old M with a PMH as below presents from home with weakness. He was diagnosed with Parkinson's disease and is on Sinemet. He recently had his ropinirole decreased by his neurologist because of his weakness. He said he felt better on Sunday and then he started getting worse over the last 4 days. He states that his weakness has been progressing over the last 6 months and he is unable to complete his activities of daily living, and his who he lives with cannot help him because she has a fractured clavicle and is also recovering from a stroke. He denies any fevers or chills, or any recent illness. Other than the ropinirole, he has not had any recent changes in his medications. Past Medical History Past Medical History (Chronic Problems): Chronic Problems Parkinsons (Chronic) GERD (gastroesophageal reflux disease) (Chronic) Right inguinal hernia (Chronic) Allergies Penicillins [PCN] Allergy (Verified 06/11/20 17:56) Unknown ALLERGY SINCE CHILDHOOD Home Medications: Ambulatory Orders Medication Instructions Recorded Aspirin [Aspirin, Baby] 81 mg PO DAILY 06/03/17 Carbidopa/Levodopa 25100 [Sinemet 2 tab PO 4X/DAY 06/03/17] Ropinirole HCl [Requip] 3 mg PO TID 06/03/17 Multivit-Min/FA/Lycopen/Lutein 1 tab PO DAILY 10/01/19 [Centrum Silver Men Tablet] Tamsulosin HCl [Flomax] 0.4 mg PO DAILY 11/19/19 Dutasteride 0.5 mg PO DAILY 06/11/20 Escitalopram Oxalate [Lexapro] 10 mg PO DAILY 06/11/20 Polyethylene Glycol 3350 [Miralax] 17 gm PO DAILY PRN PRN 06/11/20 Quetiapine Fumarate [Seroquel] 25 mg PO QHS 06/11/20 Senna [Senokot] 2 tab PO DAILY 06/11/20 Surgical History: herniorrhaphy Smoking Status: Never smoker Alcohol: None Drugs: None - *Family History Maternal History Items: No pertinent history, - - No history of heart disease strokes or cancer Paternal History Items: No pertinent history, - - No history of heart disease strokes or cancer Review of Systems Constitutional: Reports: Weakness. Denies: Chills, Fever, Weight Change HEENT: Denies: Head Aches, Sinus Congestion, Sinus Drainage Cardiovascular: Denies: Chest Pain, Palpitations Respiratory: Denies: Cough, Shortness of breath at rest, Sputum production Gastrointestinal: Denies: Abdominal Pain, Nausea, Vomiting Genitourinary: Reports: Frequency. Denies: Dysuria Musculoskeletal: Denies: Joint Pain, Joint Tenderness Skin: Denies: Rash, Wounds Neurological: Denies: Numbness, Tingling, Focal weakness Psychiatric: Denies: Anxiety, Depression Hematologic/ Lymphatic: Denies: Easy Bruising, Easy Bleeding VTE Information - Inpt Only VTE Present on Admission: No Patient Problems: Active and Suspected Problems Generalized weakness (Acute) - Physical Exam Vitals/I&O's: Vital Signs Temp Pulse Resp BP Pulse Ox 98.8 F 84 17 176/94 H 98 06/11/20 17:56 06/11/20 19:51 06/11/20 19:51 06/11/20 19:51 06/11/20 19:51 Oxygen Delivery Method Room Air Weight: 195 lb 12.328 oz Body Mass Index (BMI) 28.0 General: Alert, Oriented x3, Cooperative, No apparent distress HEENT: Atraumatic, PERRLA, EOMI, Normocephalic Oral: Moist Mucosa Neck: Supple, No JVD Lungs: Clear to auscultation, Normal air movement, No rhonchi, No wheeze, No rales, Diminished Cardiovascular: Regular rate, Regular Rhythm, Normal S1, Normal S2, No murmurs Abdomen: Soft, Non Tender, Non-Distended, No Hepato-splenomegaly Extremities: No edema, Capillary Refill Less than 3 Seconds Skin: No rashes, No breakdown Neurological: Neuro grossly intact, Sensory exam intact to light touch and pain, - - Chronic tremor Psych/Mental Status: Normal Affect, Appropriate Laboratory Results 06/11/20 18:03: WBC 8.8, RBC 4.16 L, Hgb 13.4, Hct 40.7, MCV 97.8 H, MCH 32.2 H, MCHC 32.9, RDW Std Deviation 42.5, RDW Coeff of Maryjane 11.9, Plt Count 342, MPV 9.5, Immature Gran % (Auto) 0.100, Neut % (Auto) 73.8 H, Lymph % (Auto) 13.8 L, [place] % (Auto) 7.6, Eos % (Auto) 4.1, Baso % (Auto) 0.6, Absolute Neuts (auto) 6.5, Absolute Lymphs (auto) 1.22, Nucleated RBC % 0 06/11/20 18:03: Sodium 140, Potassium 4.2, Chloride 106, Carbon Dioxide 30.0, Anion Gap 4 L, BUN 28 H, Creatinine 1.08, Estim Creat Clear Calc 64.78, Est GFR (MDRD) Af Amer 87, Est GFR (MDRD) Non-Af 72, BUN/Creatinine Ratio 25.9 H, Glucose 102, Calcium 8.6, Magnesium 2.5, Total Bilirubin 0.30, AST 17, ALT 19, Alkaline Phosphatase 86, Troponin I < 0.015, Total Protein 7.1, Albumin 3.5, Globulin 3.6, Albumin/Globulin Ratio 1.0 06/11/20 18:03: Phosphorus 2.6 06/11/20 18:20: Urine Color Yellow, Urine Clarity Cloudy, Urine pH 8.0, Ur Specific [place] 1.015, Urine Protein Negative, Urine Glucose (UA) Normal, Urine Ketones Negative, Urine Occult Blood Negative, Urine Nitrite Negative, Urine Bilirubin Negative, Urine Urobilinogen 4 H, Ur Leukocyte Esterase 25 H, Urine RBC 0 SEEN, Urine WBC 0-5 SEEN, Ur Squamous Epith Cells 0-5 SEEN, Amorphous Sediment 2+, Urine Bacteria 0 SEEN, Urine Mucus 0 SEEN Assessment/Plan All Active Problems Generalized weakness (Acute) 1. Generalized weakness/Parkinson's disease/anxiety/depression -So far no obvious etiology. He did have decreased ropinirole dose decreased which improved symptoms for about a day will decrease his ropinirole to twice daily dosing -Continue with PT/OT -Case management to assist in discharge planning for possible placement -Continue with Sinemet, Lexapro, Seroquel 2. BPH -Stable -Continue with Flomax and dutasteride DVT: Lovenox OBSV E&M: 46737 Initial observation care L2
[2020-06-11 21:02] VITALS: BP 172/91; PULSE 75; RESP 15; TEMP 37.1; O2SAT 96
[2020-06-11 21:10] VITALS: BMI 27.3
[2020-06-11 21:13] VITALS: BP 159/88; PULSE 76; RESP 16; TEMP 37; O2SAT 96
[2020-06-11 21:25] VITALS: BMI 27.3
[2020-06-12 02:45] VITALS: BP 157/78; PULSE 79; RESP 18; TEMP 36.6; O2SAT 96
[2020-06-12 06:39] LABS: Absolute Lymphocyte Count 1.27 X10^3/uL (0.83-4.51); Absolute Neutrophil Count 7.8 X10^3/uL (2.0-7.7); Basophil# 0.06 X10^3/uL; Basophil% 0.6 % (0-1); Eosinophil# 0.39 X10^3/uL; Eosinophils% 3.8 % (0-5); Hematocrit 40.5 % (40-54); Hemoglobin 13.4 g/dL (13.0-16.5); Lymphocyte # 1.27 X10^3/ul (4.0); Lymphocyte % 12.3 % (19-41); Mean Corp Hgb Conc 33.1 g/dL (32-36); Mean Corpuscular Hgb 31.4 pg (27.0-32.0); Mean Corpuscular Volume 94.8 fL (80-94); Mean Platelet Vol. 9.3 fl (6.2-12.0); Monocyte# 0.72 X10^3/uL; NRBC Flagged by Analyzer 0 % (0-5); Neutrophil # 7.82 X10^3/uL (2.7-7.7); Neutrophil % 75.9 % (47-70); Platelet Count 322 K/mm3 (150-450); RBC Distribution Width CV 11.7 % (11.6-14.6); RBC Distribution Width SD 40.6 fl (35.1-43.9); Red Blood Count 4.27 M/mm3 (4.6-6.2); White Blood Count 10.3 K/mm3 (4.4-11.0)
[2020-06-12 07:02] LABS: Anion Gap 3 (5-15); BUN 21 mg/dL (7-18); BUN/Creat Ratio 24.2 RATIO (10-20); Calcium,Total 8.8 mg/dL (8.5-10.1); Chloride 107 mmol/L (98-107); Creatinine, Serum 0.87 mg/dL (0.70-1.30); EST Glomerular Filtration Rate 92 mL/min (>60); Est Glom Filt Rate - Afr Amer 111 mL/min (>60); Estimated Creatinine Clearance 80.41 ml/min; Glucose 107 mg/dL (74-106); Potassium 3.8 mmol/L (3.5-5.1); Sodium Level 139 mmol/L (136-145)
[2020-06-12 08:45] VITALS: BP 143/75; PULSE 80; RESP 18; TEMP 37; O2SAT 98
[2020-06-12] MEDS: Enoxaparin 40 MG/0.4 ML Syringe SC (08:49)
[2020-06-12] MEDS: Aspirin 81 MG TAB.CHEW PO (08:50)
[2020-06-12] MEDS: Carbidopa/Levodopa 25/100 Tablet PO ×4 (08:50→20:46)
[2020-06-12] MEDS: Pramipexole Di-HCl 1 MG Tablet 1.5 MG PO ×2 (08:50→20:45)
[2020-06-12] MEDS: Escitalopram Oxalate 10 MG Tablet PO (08:51)
[2020-06-12] MEDS: Tamsulosin HCl 0.4 MG Capsule PO (08:51)
[2020-06-12] MEDS: Senna Tablet 1 TABLET PO (08:52)
--- NOTE | 2020-06-12 12:35 | CASEMGMT ---
SOCIAL WORK Informant: DAWSON RODRIGUEZ Reason for Consult: Discharge planning Met with patient in room. Introduced role and reason for referral. Patient open to speaking with this worker. Patient states lives home with and is normally independent. Patient reports history of Parkinson's Disease. Patient states utilizes a walker for assistance with ambulation when needed. Patient admits to history of anxiety and depression from time to time. Patient reports is not treated and declines any needs. Patient states does not feel he needs SNF at this time and would be open to outpatient therapy as he has completed outpatient therapy in the past at [facility]. Patient follows with Dr. Lyle. [facility]. Updated Gary RODRIGUEZ on the above. Catracho Rodriguez, SEISMIC OBSERVER, ADMISSIONS CLINICIAN
--- NOTE | 2020-06-12 13:04 | PN_ITS ---
Patient Problems: Active and Suspected Problems Generalized weakness (Acute) Subjective: Patient seen and examined. Reports ongoing weakness. Patient states this has been ongoing prior to admission and he does not want his to have to take care of him. He denies recent illness. Denies shortness of breath, cough or other associated symptoms. Patient states he has periods of increased strength which lasted a brief period of time and then he again declines, related to his Parkinson's. - Physical Exam Vitals/I&O's: Vital Signs Temp Pulse Resp BP Pulse Ox 98.6 F 80 18 143/75 H 98 06/12/20 08:45 06/12/20 08:45 06/12/20 08:45 06/12/20 08:45 06/12/20 08:45 Oxygen Delivery Method Room Air Weight: 190 lb 4.143 oz Body Mass Index (BMI) 27.3 Intake and Output for Last 24 Hours 06/10/20 06/11/20 06/12/20 23:59 23:59 23:59 Intake Total 360 / 360 Output Total 975 / 975 Balance -615 / -615 General: Alert, Oriented x3, Cooperative HEENT: Atraumatic, PERRLA, EOMI, Normocephalic Oral: Dry Mucosa Neck: Supple, No JVD, Negative Carotid Bruits Lungs: Clear to auscultation, Normal air movement Cardiovascular: Regular rate, No murmurs Abdomen: Bowel Sounds Present, Soft, Non Tender Extremities: No clubbing, No cyanosis, No edema, Capillary Refill Less than 3 Se conds Skin: No rashes, No breakdown Musculoskeletal: No Tenderness to Palpation of Joints or Extremities Neurological: Cranial nerves II-XII grossly intact, Neuro grossly intact, - - Chronic tremors Psych/Mental Status: Normal Affect, Appropriate Microbiology Past 72 Hours 06/11/20 18:20 Urine, Clean Catch Urine Culture - Preliminary Gram negative carrie Laboratory Results 06/11/20 18:03: WBC 8.8, RBC 4.16 L, Hgb 13.4, Hct 40.7, MCV 97.8 H, MCH 32.2 H, MCHC 32.9, RDW Std Deviation 42.5, RDW Coeff of Maryjane 11.9, Plt Count 342, MPV 9.5, Immature Gran % (Auto) 0.100, Neut % (Auto) 73.8 H, Lymph % (Auto) 13.8 L, [place] % (Auto) 7.6, Eos % (Auto) 4.1, Baso % (Auto) 0.6, Absolute Neuts (auto) 6.5, Absolute Lymphs (auto) 1.22, Nucleated RBC % 0 06/11/20 18:03: Sodium 140, Potassium 4.2, Chloride 106, Carbon Dioxide 30.0, Anion Gap 4 L, BUN 28 H, Creatinine 1.08, Estim Creat Clear Calc 64.78, Est GFR (MDRD) Af Amer 87, Est GFR (MDRD) Non-Af 72, BUN/Creatinine Ratio 25.9 H, Glucose 102, Calcium 8.6, Magnesium 2.5, Total Bilirubin 0.30, AST 17, ALT 19, Alkaline Phosphatase 86, Troponin I < 0.015, Total Protein 7.1, Albumin 3.5, Globulin 3.6, Albumin/Globulin Ratio 1.0 06/11/20 18:03: Phosphorus 2.6 06/11/20 18:20: Urine Color Yellow, Urine Clarity Cloudy, Urine pH 8.0, Ur Specific [place] 1.015, Urine Protein Negative, Urine Glucose (UA) Normal, Urine Ketones Negative, Urine Occult Blood Negative, Urine Nitrite Negative, Urine Bilirubin Negative, Urine Urobilinogen 4 H, Ur Leukocyte Esterase 25 H, Urine RBC 0 SEEN, Urine WBC 0-5 SEEN, Ur Squamous Epith Cells 0-5 SEEN, Amorphous Sediment 2+, Urine Bacteria 0 SEEN, Urine Mucus 0 SEEN 06/12/20 05:53: WBC 10.3, RBC 4.27 L, Hgb 13.4, Hct 40.5, MCV 94.8 H, MCH 31.4, MCHC 33.1, RDW Std Deviation 40.6, RDW Coeff of Maryjane 11.7, Plt Count 322, MPV 9.3, Immature Gran % (Auto) 0.400, Neut % (Auto) 75.9 H, Lymph % (Auto) 12.3 L, [place] % (Auto) 7.0, Eos % (Auto) 3.8, Baso % (Auto) 0.6, Absolute Neuts (auto) 7.8 H, Absolute Lymphs (auto) 1.27, Nucleated RBC % 0 06/12/20 05:53: Sodium 139, Potassium 3.8, Chloride 107, Carbon Dioxide 29.0, Anion Gap 3 L, BUN 21 H, Creatinine 0.87, Estim Creat Clear Calc 80.41, Est GFR (MDRD) Af Amer 111, Est GFR (MDRD) Non-Af 92, BUN/Creatinine Ratio 24.2 H, Glucose 107 H, Calcium 8.8 Current Medications Acetaminophen (Tylenol) 650 mg PO Q6H PRN PRN PRN Reason: Pain Score 1-10/Temp > 100.7 F Aspirin (Aspirin, Baby) 81 mg PO DAILY [facility] Last Admin: 06/12/20 08:50 Dose: 81 mg Documented by: Carbidopa/Levodopa (Sinemet) 2 tablet PO ACHS [facility] Last Admin: 06/12/20 10:48 Dose: 2 tablet Documented by: Enoxaparin Sodium (Lovenox) 40 mg SC DAILY [facility] Last Admin: 06/12/20 08:49 Dose: 40 mg Documented by: Escitalopram Oxalate (Lexapro) 10 mg PO DAILY [facility] Last Admin: 06/12/20 08:51 Dose: 10 mg Documented by: Melatonin (Melatonin) 3 mg PO QHS PRN PRN PRN Reason: INSOMNIA Ondansetron HCl (Zofran) 4 mg IV Q8H PRN PRN PRN Reason: NAUSEA/VOMITING Polyethylene Glycol (Miralax) 17 gm PO DAILY PRN PRN PRN Reason: consipation Pramipexole Dihydrochloride (Mirapex) 1.5 mg PO BID [facility] Last Admin: 06/12/20 08:50 Dose: 1.5 mg Documented by: Quetiapine Fumarate (Seroquel) 25 mg PO QHS [facility] Senna (Senokot) 1 tablet PO DAILY [facility] Last Admin: 06/12/20 08:52 Dose: 1 tablet Documented by: Sodium Chloride () 10 - 40 ml IV UD PRN PRN Reason: SALINE FLUSH Tamsulosin HCl (Flomax) 0.4 mg PO DAILY [facility] Last Admin: 06/12/20 08:51 Dose: 0.4 mg Documented by: Medical Necessity - Tobacco Use Smoking Status: Never smoker Assessment/Plan All Active Problems Generalized weakness (Acute) 1. Generalized weakness/debility secondary to Parkinson's disease-patient state s he has had a progressive decline. Does not want his to have to care for him. Agreeable to SNF/rehab. PT/OT. Fall precautions. Continue Sinemet, Lexapro, Seroquel. Case management consult for discharge planning. 2. Probable UTI-urine culture growing GNR 50-80,000. Will initiate IV Rocephin pending final culture. 3. Anxiety/depression-continue Lexapro. 4. BPH-continue Flomax, dutasteride. DVT prophylaxis-Lovenox subcu This patient was seen by MADHAVI Miner under the supervision of Dr. Mondragon.
[2020-06-12 14:29] VITALS: BP 97/53; PULSE 77; RESP 18; TEMP 36.6; O2SAT 99
[2020-06-12] MEDS: 0.9% Saline Lock 10 ML Syringe IV (15:34)
--- NOTE | 2020-06-12 16:30 | CASEMGMT ---
DAWSON RODRIGUEZ NOTE: Per NASREEN Stovall, pt wishes to discharge home w/OP therapy. DAWSON RODRIGUEZ to room to talk with pt. Pt initially stated he does want to go to [facility] for OP therapy, but upon further discussion, pt states feels [facility] would be best at first. Pt provided with list of local [facility] agencies and pt chose [facility]. Call placed to Oxana @ [facility] and VM message left with referral. Dr Mondragon made aware pt states is not wanting to go to SNF and that he would like [facility] @ discharge. Per Dr Mondragon, he was informed that pt's will not be there to assist in taking care of him and Dr Mondragon requests for this to be discussed with pt to ensure pt is aware of this and to discuss discharge plan with pt again, as pt has been weak and falling at home. Pt's has also had a recent injury and is unable to help care for pt. Per Evangelina OSMAN, pt has also reported to her that his weakness comes and goes and he is so weak at times @ home that he has to crawl around on the floor. NASREEN Stovall, made aware of the above and states she will f/u with patient, family, and with Dr Mondragon re: discharge plan. Susie FRANCOIS RN, CM
--- NOTE | 2020-06-12 17:50 | CASEMGMT ---
SOCIAL WORK This worker reviewed case with Gary RODRIGUEZ. Per Gary, Dr. Mondragon had been informed will be unable to assist with patient's care due to injury of her shoulder and requesting this worker do additional follow up to confirm discharge plan. This worker met with patient and patient's daughter/HPOA, Ximena Limon [phone] in room. Discussed discharge planning and 's inability to assist with care. Patient in agreement with SNF. Patient and daughter reviewing list and discussed possible referrals to [facility] and [facility]. Patient and daughter requested the weekend to speak with other family regarding referral for SNF. Informed SW will follow up on Sunday to confirm facility and make referral. Both in agreement with plan. Updated patient's nurse who reports will update Dr. Mondragon on the above. Plan: SW to follow up with patient and daughter on Sunday to make referral for SNF. Catracho Rodriguez, LEAD BUSINESS ANALYST, HOUSING INSPECTOR
[2020-06-12 20:45] VITALS: BP 151/92; PULSE 75; RESP 18; TEMP 36.8; O2SAT 99
[2020-06-12] MEDS: Cefadroxil 500 MG CAPSULE 1000 MG PO (20:45)
[2020-06-13 02:48] VITALS: BP 137/78; PULSE 73; RESP 16; TEMP 36.6; O2SAT 97
[2020-06-13] MEDS: Carbidopa/Levodopa 25/100 Tablet PO ×4 (06:14→21:05)
[2020-06-13] MEDS: Pramipexole Di-HCl 1 MG Tablet 1.5 MG PO ×3 (06:14→21:05)
[2020-06-13 09:25] LABS: Probe Check PASS; Specimen Processing Control PASS
[2020-06-13 09:26] VITALS: BP 134/73; PULSE 68; RESP 18; TEMP 36.4; O2SAT 97
[2020-06-13] MEDS: Enoxaparin 40 MG/0.4 ML Syringe SC (09:28)
[2020-06-13] MEDS: Aspirin 81 MG TAB.CHEW PO (09:32)
[2020-06-13] MEDS: Tamsulosin HCl 0.4 MG Capsule PO (09:33)
[2020-06-13] MEDS: Amantadine 100 MG Capsule PO (09:34)
[2020-06-13] MEDS: Escitalopram Oxalate 20 MG Tablet PO (09:34)
[2020-06-13] MEDS: Senna Tablet 1 TABLET PO (09:34)
[2020-06-13] MEDS: Cefadroxil 500 MG CAPSULE 1000 MG PO ×2 (09:35→21:05)
--- NOTE | 2020-06-13 11:08 | PN_ITS ---
Patient Problems: Active and Suspected Problems Generalized weakness (Acute) Subjective: Patient seen and examined. No acute events overnight. Agreeable to SNF at discharge. - Physical Exam Vitals/I&O's: Vital Signs Temp Pulse Resp BP Pulse Ox 97.6 F L 68 18 134/73 H 97 06/13/20 09:26 06/13/20 09:26 06/13/20 09:26 06/13/20 09:26 06/13/20 09:26 Oxygen Delivery Method Room Air Weight: 190 lb 4.143 oz Body Mass Index (BMI) 27.3 Intake and Output for Last 24 Hours 06/11/20 06/12/20 06/13/20 23:59 23:59 23:59 Intake Total 720 / 720 Output Total 975 / 975 200 / 200 Balance -255 / -255 -200 / -200 General: Alert, Oriented x3, Cooperative HEENT: Atraumatic, PERRLA, EOMI, Normocephalic Neck: Supple, No JVD, Negative Carotid Bruits Lungs: Clear to auscultation, Normal air movement Cardiovascular: Regular rate, No murmurs Abdomen: Bowel Sounds Present, Soft, Non Tender, Non-Distended Extremities: No clubbing, No cyanosis, No edema, Capillary Refill Less than 3 Seconds Skin: No rashes, No breakdown Musculoskeletal: No Tenderness to Palpation of Joints or Extremities, Cachexia Neurological: Cranial nerves II-XII grossly intact, Neuro grossly intact, - - Chronic tremors Psych/Mental Status: Normal Affect, Appropriate Microbiology Past 72 Hours 06/11/20 18:20 Urine, Clean Catch Urine Culture - Final Klebsiella oxytoca Laboratory Results 06/12/20 05:53: Vitamin D 25-Hydroxy Pending 06/13/20 07:56: COVID-19 (NATE) Negative Current Medications Acetaminophen (Tylenol) 650 mg PO Q6H PRN PRN PRN Reason: Pain Score 1-10/Temp > 100.7 F Amantadine HCl (Symmetrel) 100 mg PO DAILY [facility] Last Admin: 06/13/20 09:34 Dose: 100 mg Documented by: Aspirin (Aspirin, Baby) 81 mg PO DAILY [facility] Last Admin: 06/13/20 09:32 Dose: 81 mg Documented by: Carbidopa/Levodopa (Sinemet) 2 tablet PO ACHS [facility] Last Admin: 06/13/20 06:14 Dose: 2 tablet Documented by: Cefadroxil (Duricef) 1,000 mg PO BID [facility] Last Admin: 06/13/20 09:35 Dose: 1,000 mg Documented by: Enoxaparin Sodium (Lovenox) 40 mg SC DAILY [facility] Last Admin: 06/13/20 09:28 Dose: 40 mg Documented by: Escitalopram Oxalate (Lexapro) 20 mg PO DAILY [facility] Last Admin: 06/13/20 09:34 Dose: 20 mg Documented by: Melatonin (Melatonin) 3 mg PO QHS PRN PRN PRN Reason: INSOMNIA Ondansetron HCl (Zofran) 4 mg IV Q8H PRN PRN PRN Reason: NAUSEA/VOMITING Polyethylene Glycol (Miralax) 17 gm PO DAILY PRN PRN PRN Reason: consipation Pramipexole Dihydrochloride (Mirapex) 1.5 mg PO TID [facility] Last Admin: 06/13/20 06:14 Dose: 1.5 mg Documented by: Senna (Senokot) 1 tablet PO DAILY [facility] Last Admin: 06/13/20 09:34 Dose: 1 tablet Documented by: Sodium Chloride () 10 - 40 ml IV UD PRN PRN Reason: SALINE FLUSH Last Admin: 06/12/20 15:34 Dose: 10 ml Documented by: Tamsulosin HCl (Flomax) 0.4 mg PO DAILY [facility] Last Admin: 06/13/20 09:33 Dose: 0.4 mg Documented by: Medical Necessity - Tobacco Use Smoking Status: Never smoker Assessment/Plan All Active Problems Generalized weakness (Acute) 1. Generalized weakness/debility secondary to Parkinson's disease-patient states he has had a progressive decline. Does not want his to have to care for him. Agreeable to SNF/rehab. PT/OT. Fall precautions. Continue Sinemet, Lexapro, Seroquel, Requip. Case management consult for discharge planning. 2. Acute Klebsiella UTI-urine culture growing klebsiella 50-80,000. Continue oral Duricef. 3. Anxiety/depression-continue Lexapro. Lexapro increased to 20mg daily. 4. BPH-continue Flomax, dutasteride. DVT prophylaxis-Lovenox subcu Discharge planning: SNF pending acceptance. This patient was seen by MADHAVI Miner under the supervision of Dr. Mondragon.
[2020-06-13 15:20] VITALS: BP 133/63; PULSE 79; RESP 18; TEMP 36.6; O2SAT 97
--- NOTE | 2020-06-13 17:15 | NURSING ---
Pt voided x2 thus far today and was unmeasured. This nurse bladder scanned patients bladder prior to voiding and only obtained 193cc. Will monitor.
[2020-06-13] MEDS: 0.9% Saline Lock 10 ML Syringe IV (17:19)
[2020-06-13 21:00] VITALS: BP 143/77; PULSE 77; RESP 16; TEMP 36.4; O2SAT 98
[2020-06-14 03:20] VITALS: BP 145/83; PULSE 71; RESP 16; TEMP 37.1; O2SAT 97
[2020-06-14] MEDS: Pramipexole Di-HCl 1 MG Tablet 1.5 MG PO ×2 (05:31→14:30)
[2020-06-14] MEDS: Carbidopa/Levodopa 25/100 Tablet PO ×2 (05:32→10:41)
[2020-06-14 08:45] LABS: Vitamin D,25 Hydroxy 37.1 ng/mL
[2020-06-14 09:20] VITALS: BP 128/74; PULSE 78; RESP 16; TEMP 36.8; O2SAT 98
--- NOTE | 2020-06-14 09:50 | CASEMGMT ---
Addendum entered by Liliam Warren 06/14/20 10:10: SW received call from Jaymie at [facility], they have no beds available at this time. Original Note: Social Work Note Per handoff communication, pt's daughter was thinking possibly [facility] at discharge. SW placed a call to [facility] and left message for Jaymie inquiring about bed availability. SW waiting for call back. Plan: SNF pending acceptance Liliam Warren BROADCAST MAINTENANCE ENGINEER, [employer]
[2020-06-14] MEDS: Enoxaparin 40 MG/0.4 ML Syringe SC (10:39)
[2020-06-14] MEDS: Cefadroxil 500 MG CAPSULE 1000 MG PO (10:40)
[2020-06-14] MEDS: Senna Tablet 1 TABLET PO (10:40)
[2020-06-14] MEDS: Amantadine 100 MG Capsule PO (10:41)
[2020-06-14] MEDS: Tamsulosin HCl 0.4 MG Capsule PO (10:41)
[2020-06-14] MEDS: Aspirin 81 MG TAB.CHEW PO (10:58)
[2020-06-14] MEDS: Escitalopram Oxalate 20 MG Tablet PO (10:59)
--- NOTE | 2020-06-14 11:18 | CASEMGMT ---
Social Work Note SW in to speak with pt. SW introduced self and role at [facility]. Pt is alert and orientated but does appear to have some forgetfulness/confusion as pt had mentioned to this worker that he has been getting up and going to the bathroom by himself but that has not been the case. SW updated pt that pt's [facility] informed [facility] that [facility] have no beds available at this time. Pt gave this worker permission to call Ximena to get new choice for SNF. SW placed a call to pt's daughter Ximena and updated her that [facility] has no beds available at this time. Ximena states next choice for SNF is [facility] as they have memory care unit and pt will likely need memory care. SW asked Ximena about pt's Mariya getting admitted to same SNF but informed Ximena that [facility] doesn't take Mariya's insurance. Ximena states it would be nice for them both to be admitted to the same SNF but also states that it is what it is if Mariya is not able to go to the same SNF as pt. Ximena again confirms that the next choice for SNF is [facility]. NASREEN explained referral process. SW placed a call to [place] at [facility] and left message regarding referral. SW faxed referral. Plan: [facility] pending acceptance. Liliam Warren FLY RAIL OPERATOR, MOLD OPERATOR
--- NOTE | 2020-06-14 13:03 | CHAPLAIN ---
Type of Pastoral Visit _x__ Initial Visit ___ Follow-up Visit ___ On-call Visit ___ General Patient Visit ___ Spiritual Assessment ___ Family Conference ___ Bereavement ___ Rapid Response ___ Code Blue ___ Other (describe below) Pastoral Care Referral From ___ Patient ___ Family _x__ Nurse ___ Physician ___ Track Repair Worker ___ Screen Door Maker ___ Other (describe below) Sacrament/Intervention _x__ Active listening ___ Anointing ___ Jewish ___ Bereavement ___ Communion _x__ Cheryl exploration ___ _x__ Life review _x__ Prayer ___ Reconciliation ___ Sacrament of Sick _x__ Supportive presence ___ Wedding ___ Other (describe below) Pastoral Comments initially the patient did not seem alert but then once conversation opened he took the lead and talked about life, family, and his bahai; pt did not mention what he faced next in his care and did not express any concerns about future health; prayer welcomed;
--- NOTE | 2020-06-14 13:42 | PCM.EXTCARCO ---
- Diet 06/11/20 21:49 Diet: Regular - General Food consistency:: Regular Liquid Consistency:: Regular/Thin - Routine Orders/Code Status Enema Type: Fleetz Enema Frequency: Daily PRN Suppository Type: Dulcolax 10mg Suppository Frequency: Daily PRN - Wound(s) r shoulder Wound Type: Chronic bilat hands Wound Type: Scabs bilat knees Wound Type: Scabs - Suggestions for Active Care Change Position every (hours): 2 Times a day to sit in chair: 3 - Therapies Physical Therapy: Eval and Treat Occupational Therapy: Eval and Treat - Problem/Diagnosis (1) UTI (urinary tract infection) Status: Acute Current Visit: Yes (2) Parkinsons Status: Chronic Current Visit: Yes (3) GERD (gastroesophageal reflux disease) Status: Chronic Current Visit: No (4) Generalized weakness Status: Acute Current Visit: Yes - Allergies/Procedures Done in Hospital Allergies/Adverse Reactions: Allergies Penicillins [PCN] Allergy (Verified 06/11/20 21:18) Unknown ALLERGY SINCE CHILDHOOD Procedures: None - Type of Care/Length of Stay Estimated LOS: Convalescent Care Less Than 30 days Type of Care Needed: Skilled Rehab Potential: Fair Prognosis: Fair - Additional Orders/Day of Discharge H&P will serve as current which was dated: 06/11/20 Day of Discharge: 06/14/20 - Follow Up Care Primary Care Physician: Bharathi Lyle MD [Primary Care Provider] - Please follow up with your Primary Care Physician in: 1 Week Please Follow Up With: Primary Neurologist When: 2-4 Weeks
--- NOTE | 2020-06-14 13:44 | PCM.DC.SUM ---
Discharge Date and Diagnosis Date of Admission: 06/11/20 Date of Discharge: 06/14/20 - Primary Discharge Diagnosis Acute Problems: Active Problems 1. Generalized weakness/debility secondary to Parkinson's disease 2. Acute Klebsiella UTI 3. Anxiety/depression 4. BPH - Secondary Discharge Diagnosis Chronic Problems: Chronic Problems Parkinsons (Chronic) GERD (gastroesophageal reflux disease) (Chronic) Right inguinal hernia (Chronic) Hospital Course and Treatment Imaging Results: Diagnostic Data Chest X-Ray 06/11/20 19:03 IMPRESSION: COPD. No acute cardiopulmonary pathology Electronically Signed: Gerardo Camarillo MD at 19:16 EDT , Service support , Operations: None Procedures: None Summary of Care Provided: The patient is a 69 year old M admitted 06/11/2020 due to weakness. 1. Generalized weakness/debility secondary to Parkinson's disease-patient states he has had a progressive decline. Does not want his to have to care for him. Agreeable to SNF/rehab. PT/OT. Fall precautions. Continue Sinemet, Lexapro, Seroquel, Requip. SNF at discharge. Follow-up with primary neurologist in 2 to 4 weeks. 2. Acute Klebsiella UTI-urine culture growing klebsiella 50-80,000. Continue oral Duricef to complete course. 3. Anxiety/depression-continue Lexapro. Lexapro increased to 20mg daily. 4. BPH-continue Flomax, dutasteride. General: Alert, Oriented x3, Cooperative HEENT: Atraumatic, PERRLA, EOMI, Normocephalic Neck: Supple, No JVD, Negative Carotid Bruits Lungs: Clear to auscultation, Normal air movement Cardiovascular: Regular rate, No murmurs Abdomen: Bowel Sounds Present, Soft, Non Tender, Non-Distended Extremities: No clubbing, No cyanosis, No edema, Capillary Refill Less than 3 Seconds Skin: No rashes, No breakdown Musculoskeletal: No Tenderness to Palpation of Joints or Extremities, Cachexia Neurological: Cranial nerves II-XII grossly intact, Neuro grossly intact, - - Chronic tremors Psych/Mental Status: Normal Affect, Appropriate Patient seen and examined prior to discharge. Physical assessment as noted above. Patient is stable for discharge with follow up recommendations as noted above. This patient was seen by MADHAVI Miner under the supervision of Dr. Mondragon. - Physical Exam Vitals/I&O's: Vital Signs Temp Pulse Resp BP Pulse Ox 98.2 F 78 16 128/74 H 98 06/14/20 09:20 06/14/20 09:20 06/14/20 09:20 06/14/20 09:20 06/14/20 09:20 Oxygen Delivery Method Room Air Weight: 190 lb 4.143 oz Body Mass Index (BMI) 27.3 Intake and Output for Last 24 Hours 06/12/20 06/13/20 06/14/20 23:59 23:59 23:59 Intake Total 720 / 720 360 / 360 850 / 850 Output Total 975 / 975 200 / 400 200 / 200 Balance -255 / -255 160 / -40 650 / 650 Microbiology Past 72 Hours 06/11/20 18:20 Urine, Clean Catch Urine Culture - Final Klebsiella oxytoca Laboratory Results 06/12/20 05:53: Vitamin D 25-Hydroxy 37.1 Current Medications Acetaminophen (Tylenol) 650 mg PO Q6H PRN PRN PRN Reason: Pain Score 1-10/Temp > 100.7 F Amantadine HCl (Symmetrel) 100 mg PO DAILY [facility] Last Admin: 06/14/20 10:41 Dose: 100 mg Documented by: Aspirin (Aspirin, Baby) 81 mg PO DAILY [facility] Last Admin: 06/14/20 10:58 Dose: 81 mg Documented by: Carbidopa/Levodopa (Sinemet) 2 tablet PO ACHS [facility] Last Admin: 06/14/20 10:41 Dose: 2 tablet Documented by: Cefadroxil (Duricef) 1,000 mg PO BID [facility] Last Admin: 06/14/20 10:40 Dose: 1,000 mg Documented by: Enoxaparin Sodium (Lovenox) 40 mg SC DAILY [facility] Last Admin: 06/14/20 10:39 Dose: 40 mg Documented by: Escitalopram Oxalate (Lexapro) 20 mg PO DAILY [facility] Last Admin: 06/14/20 10:59 Dose: 20 mg Documented by: Melatonin (Melatonin) 3 mg PO QHS PRN PRN PRN Reason: INSOMNIA Ondansetron HCl (Zofran) 4 mg IV Q8H PRN PRN PRN Reason: NAUSEA/VOMITING Polyethylene Glycol (Miralax) 17 gm PO DAILY PRN PRN PRN Reason: consipation Pramipexole Dihydrochloride (Mirapex) 1.5 mg PO TID [facility] Last Admin: 06/14/20 05:31 Dose: 1.5 mg Documented by: Senna (Senokot) 1 tablet PO DAILY [facility] Last Admin: 06/14/20 10:40 Dose: 1 tablet Documented by: Sodium Chloride () 10 - 40 ml IV UD PRN PRN Reason: SALINE FLUSH Last Admin: 06/13/20 17:19 Dose: 10 ml Documented by: Tamsulosin HCl (Flomax) 0.4 mg PO DAILY [facility] Last Admin: 06/14/20 10:41 Dose: 0.4 mg Documented by: Home Medications: Medications to take at Discharge Aspirin [Aspirin, Baby] 81 mg PO DAILY 06/03/17 Carbidopa/Levodopa 25/100 [Sinemet 25/100] 2 tab PO 4X/DAY 06/03/17 Ropinirole HCl [Requip] 3 mg PO TID 06/03/17 Multivit-Min/FA/Lycopen/Lutein [Centrum Silver Men Tablet] 1 tab PO DAILY 10/01/19 Tamsulosin HCl [Flomax] 0.4 mg PO DAILY 11/19/19 Dutasteride 0.5 mg PO DAILY 06/11/20 Polyethylene Glycol 3350 [Miralax] 17 gm PO DAILY PRN PRN 06/11/20 Senna [Senokot] 2 tab PO DAILY 06/11/20 Amantadine [Symmetrel] 100 mg PO DAILY cap 06/14/20 Cefadroxil [Duricef] 1,000 mg PO BID 5 Days cap 06/14/20 Escitalopram Oxalate [Lexapro] 20 mg PO DAILY tab 06/14/20 Quetiapine Fumarate [Seroquel] 25 mg PO QHS PRN #0 06/14/20 Primary Care Physician: Bharathi Lyle MD [Primary Care Provider] - Please follow up with your Primary Care Physician in: 1 Week Please Follow Up With: Primary Neurologist When: 2-4 Weeks Disposition: Group Home facility Minutes spent on discharge:: 35 Patient Condition:: Stable Medical Necessity - Tobacco Use Smoking Status: Never smoker Meaningful Use Info Meaningful Use Diagnoses (Choose all that apply): None applicable
--- NOTE | 2020-06-14 14:03 | PHA.DC.MR ---
Pharmacy Service has performed discharge medication reconciliation for this patient upon transfer to [facility]. The patient's discharge medication list was reviewed for discrepancies and discrepancies were resolved. Home Medications Aspirin [Aspirin, Baby] 81 mg PO DAILY 06/03/17 Carbidopa/Levodopa 25/100 [Sinemet 25/100] 2 tab PO 4X/DAY 06/03/17 Ropinirole HCl [Requip] 3 mg PO TID 06/03/17 Multivit-Min/FA/Lycopen/Lutein [Centrum Silver Men Tablet] 1 tab PO DAILY 10/01/19 Tamsulosin HCl [Flomax] 0.4 mg PO DAILY 11/19/19 Dutasteride 0.5 mg PO DAILY 06/11/20 Polyethylene Glycol 3350 [Miralax] 17 gm PO DAILY PRN PRN 06/11/20 Senna [Senokot] 2 tab PO DAILY 06/11/20 Amantadine [Symmetrel] 100 mg PO DAILY cap 06/14/20 Cefadroxil [Duricef] 1,000 mg PO BID 5 Days cap 06/14/20 Escitalopram Oxalate [Lexapro] 20 mg PO DAILY tab 06/14/20 Quetiapine Fumarate [Seroquel] 25 mg PO QHS PRN #0 06/14/20
--- NOTE | 2020-06-14 14:21 | CASEMGMT ---
Social Work Note NASREEN received call from [place] at [facility] stating [facility] is able to accept pt today. PA updated. Pt and pt's daughter Ximena updated on acceptance to [facility] and discharge today. Pt and Ximena agreeable to [facility]. NASREEN spoke with RN. Pt can transport via wheelchair van but to make sure wheelchair van has seat belt as pt can be impulsive. NASREEN placed a call to [facility], wheelchair vans do not have seat belt, pt will need to transport via cot. NASREEN arranged transportation via cot for 2:45pm. Transportation form completed and placed on SNF folder and copy on pt's chart. NASREEN faxed completed discharge paperwork to [place] at [facility] including transfer to extended care facility, signed medication list, any scripts, and COVID screening tool. Original in SNF folder and copy on pt's chart. NASREEN completed convalescent [facility] in [facility]. Original in SNF folder and copy on pt's chart. RN updated on transportation time. Pt and Ximena updated on transportation time. NASREEN placed a call to [place] at [facility] and left message regarding transportation time. Plan: [facility] skilled today with [facility] transporting pt at 2:45pm Liliam MICHAELS, PAINT PREP TECHNICIAN
[2020-06-14 14:50] VITALS: BP 138/70; PULSE 138; RESP 18; TEMP 36.6; O2SAT 98
== END 2020-06-14 14:54 | disposition skilled nursing facility (03) | DRG 57 ==
LOC: ED 19:17 → MS3 20:45
PROVIDERS: Nurse Practitioner Family; Admitting Provider Family Medicine; Emergency Provider Emergency Medicine; PCP Family Medicine; Referring Provider Family Medicine; Visit Provider Internal Medicine
DX: G20 Parkinson's disease (principal); N39.0 Urinary tract infection, site not specified; B96.1 Klebsiella pneumoniae [K. pneumoniae] as the cause of diseases classified elsewhere; K21.9 Gastro-esophageal reflux disease without esophagitis; N40.0 Benign prostatic hyperplasia without lower urinary tract symptoms; F32.9 Major depressive disorder, single episode, unspecified; F41.9 Anxiety disorder, unspecified; K40.90 Unilateral inguinal hernia, without obstruction or gangrene, not specified as recurrent; Z86.73 Personal history of transient ischemic attack (TIA), and cerebral infarction without residual deficits; Z23 Encounter for immunization
CPT/HCPCS: 36415; 71045; 80048; 80053; 81001; 82306; 83735; 84100; 84484; 85025; 87077; 87086; 87088; 87186; 87635; 93005; 97116; 97162; 97166; 97530; 97535; 99284; 99406; G0008; 90686; A4216; U0003

== ENCOUNTER → 2020-08-02 04:00 | Outpatient (REF) | payer MEDICARE, OTHER, SELFPAY ==
[2020-08-02 07:39] LABS: Absolute Lymphocyte Count 1.21 X10^3/uL (0.83-4.51); Basophil# 0.06 X10^3/uL; Basophil% 0.9 % (0-1); Eosinophil# 0.65 X10^3/uL; Eosinophils% 9.8 % (0-5); Hematocrit 37.9 % (40-54); Hemoglobin 12.4 g/dL (13.0-16.5); Lymphocyte # 1.21 X10^3/ul (4.0); Lymphocyte % 18.2 % (19-41); Mean Corp Hgb Conc 32.7 g/dL (32-36); Mean Corpuscular Hgb 31.7 pg (27.0-32.0); Mean Corpuscular Volume 96.9 fL (80-94); Monocyte# 0.71 X10^3/uL; Monocyte% 10.7 % (0-10); NRBC Flagged by Analyzer 0 % (0-5); Neutrophil % 60.2 % (47-70); Platelet Count 205 K/mm3 (150-450); RBC Distribution Width CV 11.9 % (11.6-14.6); RBC Distribution Width SD 42.6 fl (35.1-43.9); Red Blood Count 3.91 M/mm3 (4.6-6.2); White Blood Count 6.6 K/mm3 (4.4-11.0)
[2020-08-02 08:00] LABS: Anion Gap 6 (5-15); BUN 27 mg/dL (7-18); BUN/Creat Ratio 30.8 RATIO (10-20); Calcium,Total 8.6 mg/dL (8.5-10.1); Chloride 106 mmol/L (98-107); Creatinine, Serum 0.88 mg/dL (0.70-1.30); EST Glomerular Filtration Rate 91 mL/min (>60); Est Glom Filt Rate - Afr Amer 110 mL/min (>60); Glucose 84 mg/dL (74-106); Potassium 3.6 mmol/L (3.5-5.1); Sodium Level 140 mmol/L (136-145)
--- OUTSIDE RECORDS SUMMARY | 2020-09-08 05:37 | XMS RPT_ITS | CCD ---
:1950 External Reference #:[id number] Author Organization [facility] Care Team Providers Name Role Phone Derek Posada Primary Care Provider Marc Kaufman Unavailable Mena Pozo Unavailable , (Rn) Unavailable Allergies Reported Allergen Reaction(s) Severity Date of Onset Location [id number][facility] Medications Medication Name Sig Date Prescriber Location Aspirin ASPIRIN 81 MG TAB, 10-16-2008 Catalino Reed [facility] DELAYED RELEASE (42779) Take one(1) tablet daily. 0 10/16/2008 Active Comment: Take one(1) tablet daily. Carbidopa / carbidopa-levodopa 10-06-2019 Catalino Reed [facility] Levodopa (SINEMET 25-100) 25-100 (441 95) mg per tablet Indications: Parkinsonism, unspecified Parkinsonism type (HCC) Take 2 tablets by mouth four times daily. 0 10/06/2019 Active Comment: Take 2 tablets by mouth four times daily. Dutasteride dutasteride 01-05-2020 - Catalino Reed [facility] (AVODART) 0.5 mg 08-16-2020 (35359) capsule Indications: Benign prostatic hyperplasia with urinary frequency Take 1 capsule by mouth once daily. 90 capsule 3 08/16/2020 Active Comment: Take 1 capsule by mouth once daily. Escitalopram escitalopram oxalate 05-07-2020 [facility] Provider [facility] (LEXAPRO) 10 mg tablet (4419 5) Take 10 mg by mouth once daily. 0 05/07/2020 Active Comment: Take 10 mg by mouth once vonda ly. multivitamin tablet multivitamin tablet 06-17-2019 Catalino Reed [facility] Take 1 tablet by (44994) mouth once daily. 0 06/17/2019 Active multivitamin tablet Take 1 06-17-2019 Catalino Reed [facility] (49553) tablet by mouth once daily. 0 06/17/2019 Active multivitamin tablet Take 1 06-17-2019 Catalino Reed [facility] (50851) tablet by mouth once daily. 0 06/17/2019 Active multivitamin tablet Take 1 06-17-2019 Catalino Reed [facility] (95980) tablet by mouth once daily. 0 06/17/2019 Active multivitamin tablet Take 1 06-17-2019 Catalino Derek [facility] (88003) tablet by mouth once daily. 0 06/17/2019 Active multivitamin tablet Take 1 06-17-2019 Catalino Derek [facility] (74853) tablet by mouth once daily. 0 06/17/2019 Active multivitamin tablet Take 1 06-17-2019 Catalino Derek [facility] (92349) tablet by mouth once daily. 0 06/17/2019 Active Comment: Take 1 tablet by mouth once daily. POLYETHYLENE GLYCOL polyethylene glycol 10-06-2019 Catalino Derek [facility] 3350 3350 (MIRALAX) 17 (92542) gram/dose powder Indications: Chronic constipation Take 17 grams daily as needed for constipation 1 Bottle 11 10/06/2019 Active Comment: Take 17 grams daily as neede d for constipation QUEtiapine QUEtiapine (SEROQUEL) 25 05-07-2020 [facility] Provider [facility] (51095) mg tablet Take by mouth daily at bedtime. 0 05/07/2020 Active Comment: Take by mouth daily at bedti me. rOPINIRole rOPINIRole Hydrochloride 10-06-2019 Conroy Derek [facility] (REQUIP) 3 mg tablet (40498) Indications: Parkinsonism, unspecified Parkinsonism type (HCC) Take 1 tablet by mouth three times daily. 0 10/06/2019 Active Comment: Take 1 tablet by mouth three times daily. sennosides, NURSING HOME senna (SENNA) 8.6 mg 06-17-2019 Catalino Derek [facility] tab Take 1 tablet by (74689) mouth once daily as needed. 0 06/17/2019 Active Comment: Take 1 tablet by mouth once daily as needed. tamsulosin tamsulosin ER (FLOMAX) 0.4 03-29-2020 Chet Salvador [facility] mg Indications: Benign (4419 5) prostatic hyperplasia with urinary frequency Take 1 capsule by mouth daily at bedtime. 90 capsule 1 03/29/2020 Active Comment: Take 1 capsule by mouth milad y at bedtime. Problems Active Problems Category Problem Name Status Date Location Abdominal hernia Hernia of anterior Active [facility] abdominal wall (37454) Hyperplasia of prostate Urinary frequency due Active [facility] to benign prostatic (91631) hypertrophy Parkinson`s disease Parkinson's disease Active 10-16-2008 - C [facility] (93926) Unclassified Preprocedural Active [facility] ic examination done (38026) Past or Other Problems Category Problem Name Status Date Location Other gastrointestinal Chronic constipation Completed 10-06-2019 - [facility] disorders (11113) Spondylosis; 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 (94981) disorders; other back problems Results Result Name Value Range Unit Interpretation Flag Date Location obsolete on 2020-07 OBSOLETE Refill (FAMPWS) Normal 08-16-2020 [facility] JUSTIN THURMAN ([id number]) 1950 [facility] Time Provider Department ([id number]) 08/16/20 CATALINO POSADA During your visit today, we recorded the following informati on about you: Brandee Finn Ma 08/16/2020 11:43 AM Signed Last office visit: 01/05/2020 F/u scheduled: no follow up Brandee Posada MD 08/16/2020 1:44 PM Signed OK to refill as ordered MD Brandee Lyman Ma 08/18/2020 4:06 PM Signed The following approved medic ation requests have been transmitted electronically. Signed Prescriptions Disp Refills dutasteride (AVODART) 0.5 mg capsule 90 capsule 3 Sig: Take 1 capsule by mouth once daily. DOM: No Authorizing Provider: CATALINO POSADA Ma Allergies As of Date: 08/16/2020 Noted Allergy Reaction PENICILLINS 09/18/2008 Date Reviewed: 06/09/2020 Reviewed by: Heidi Hanks - Fully Assessed Reason for Visit: Refill Request [94] Refill Request [94] Reason For Visit History Recorded Visit Diagnosis:Benign prostatic hyperplasia with urinary frequency [N40.1, R35.0] Order(s):dutasteride (AVODART) 0.5 mg capsuleTake 1 capsule by mouth once daily.Disp: 90 capsuleRfl: 3 Prescriptions as of 08/16/2020 Sig: DUTASTERIDE 0.5 MG CAPSULE Take 1 capsule by mouth once * QUETIAPINE 25 MG TABLET Take by mouth daily at bedtim* TAMSULOSIN 0.4 MG CAPSULE Take 1 capsule by mouth daily* CARBIDOPA 25 MG-LEVODOPA 100 * Take 2 tablets by mouth four * ROPINIROLE 3 MG TABLET Take 1 tablet by mouth three * POLYETHYLENE GLYCOL 3350 17 G* Take 17 grams daily as needed * MULTIVITAMIN TABLET Take 1 tablet by mouth once d* SENNOSIDES 8.6 MG TABLET Take 1 tablet by mouth once d* * ASPIRIN 81 MG TABLET,DELAYED * Take one(1) tablet daily. Problem List As Of Date 08/16/2020 Noted Resolved Parkinson disease (HCC) [G20] 10/16/2008 More... Thoracic or lumbosacral neuritis or radiculitis*03/03/2013 Special screening for malignant neoplasms, colo*01/29/2015 0 01/29/2015 Chronic constipation [K59.09] 10/06/2019 More... Prescriptions ordered this encounter Disp Refills Start End DUTASTERIDE 0.5 MG CAPSULE 90 c* 3 08/16/2020 Route: ORAL Sig: Take 1 capsule by mouth once daily. Medications Discontinued During This Encounter Prescriptions - dutasteride (AVODART) 0.5 mg capsule (Discontinued) Take 1 capsule by mouth once daily. Encounter Status:Closed by BRANDEE FINN MA on 08/18/20 progress on 2020-05 PROGRESS HNO ID: [id number] Normal 06-09-2020 [facility] Author: Heidi Hanks [place] ([id number]) Service: ? Author Type: Physician Furniture Delivery Driver Type: Progress Notes Filed: 06/09/2020 5:33 PM Note Text: FOLLOW UP VISIT - HERNIA NAME: Justin [facility] NO.: [id number] DATE OF SERVICE: 06/02/2020 : 1950 REFERRING PHYSICIAN: Catalino Posada MD Justin is a patient I am following for right inguinal herni a and umbilical hernia, previous bilateral inguinal hernia repair. Dr. Valdivia performed a laparoscopic right inguinal hernia repair and um bilical hernia repair with mesh on 05/26/2020. The patient currently notes no major complaints. his appetite has been good. he denies fever, chi lls or abdominal pain. he does note some mild incisional discomfort . he notes no bulges at the operative site VITALS: Blood pressure 122/60, pulse 80, temperature 36.1 ?C (97 ?F), temperature source Temporal, resp. rate 20, weight 89.4 kg ( 197 lb), SpO2 96 %. General: patient is alert, cooperative, pleasant and in no a cute distress On examination, the abdomen is benign. The incisions are hea ling well without signs of infection or inflammation. There are no sig ns of recurrent hernia formation. Assessment IMPRESSION: status post laparoscopic right inguinal hernia r epair and umbilical hernia repair with mesh PLAN: If the patient notes any problems, he should contact me imme diately. he may return to his regular activities as tolerated, with t he exception of no lifting greater than 20 pounds for the next 7 weeks. I f patient feels the urge to cough or sneeze, they should brace against the repair site with their hands or a pillow. Diagnoses: (Z98.890, Z87.19) S/P hernia repair (primary enco unter diagnosis) Return to Clinic: The patient is instructed to follow-up wit h me as needed. Patient verbalized understanding of all above and agreed wit h the plan. Heidi Hanks PA-C cnov on 2020-06-02 CNOV Office Visit (GENSWS) Normal 06-02-20 [place] [facility] THURMANJUSTIN BARTH ([id number]) 1950 [facility] Date Time Provider Department ([id number]) 06/02/20 8:00 AM HEIDI HANKS During your visit today, we recorded the following informati on about you: Temperature Pulse Respiration Blood pressure 97 degrees 80/minute 20/minute 122/60 Weight 89.4 kg Heidi Hanks PA-C 06/02/2020 8:24 AM Signed The following instructions are important for you related to your office visit today with the [facility]. INSTRUCTIONS FOLLOWING YOUR RECENT HERNIA SURGERY You should be returning to your regular diet, If you have having persistent issue s with tolerating your diet, please contact our office It is not unusual to have incisional pain for the first 1- 2 weeks following surgery. If this persists beyond 2 weeks, contact the office You should leave the Steri-Strips in montez ce for 5 days, OK to remove after that if they have not fallen off on their own. You may return to your regular activities. You may drive if you are no longer taking narcot ic pain medication. Climbing stairs is fine. Walking in encouraged. Sitting up f rom bed may be uncomfortable. Sitting up using your lateral abdominal muscl es (sitting up sideways) is usually more comfortable. You should perform no lifting greater than 20lbs for the nex t 6-7 weeks. Usually 8 weeks total from the date of surgery. It is not unusual to have loose stools following surgery. Th is is usually self limited and related to the antibiotics that were given during your surgical procedure. Fiber supplementation and yo gurt with active cultures may help you return to regular bowel activit y. If you note loose stools persisting for over 2 weeks, or significant cramping or loo se bloody stools, contact the office immediately. Contact the office immediately if any of your incisions be come increasingly tender, red or have drainage. Again, if you have any difficulties or concerns, contact our office immediately. If you note any additional difficulties, questions, or con cerns, you should contact our office immediately @ and ask to be transferred to the General Surgery department. Heidi Hanks PA-C 06/09/2020 5:33 PM Signed FOLLOW UP VISIT - HERNIA NAME: Justin Thurman CLINIC NO.: [id number] DATE OF SERVICE: 06/02/2020 : 1950 REFERRING PHYSICIAN: Catalino Posada MD Justin is a patient I am following for right inguinal her astrid and umbilical hernia, previous bilateral inguinal hernia repair. Dr. Lenka luis performed a laparoscopic right inguinal hernia repair and umbilical hernia repair with mesh on 05/26/2020. The patient currently notes no major complaints . his appetite has been good. he denies fever, chills or abdominal pain. he does note some mild incisional discomfort. he notes no bulges at the operat catie site VITALS: Blood pressure 122/60, pulse 80, temperature 36.1 ?C (97 ?F), temperature source Temporal, resp. rate 20, weight 89.4 kg (197 lb), SpO2 96 %. General: patient is alert, cooperative, pleasant and in no a cute distress On examination, the abdomen is benign. The incis ions are healing well without signs of infection or inflammation. There are no signs of re current hernia formation. Assessment IMPRESSION: status post lapa roscopic right inguinal hernia repair and umbilical hernia repair with mesh PLAN: If the patient notes any problems, he should contact me imme diately. he may return to his regular activities as tolerated, with th e exception of no lifting greater than 20 pounds for the n ext 7 weeks. If patient feels the urge to cough or sneeze, they should brace ag ainst the repair site with their hands or a pillow. Diagnoses: (Z98.890, Z87.19) S/P hernia repair (primar y encounter diagnosis) Return to Clinic: The patient is instructed to follow-up w ith me as needed. Patient verbalized understanding of all above and agreed wit h the plan. Heidi Hanks PA-C Referring Provider: CATALINO POSADA [[id number]] Allergies As of Date: 06/02/2020 Noted Allergy Reaction PENICILLINS 09/18/2008 Date Reviewed: 06/02/2020 Reviewed by: Tyesha Cobb LPN - Fully Assessed Reason for Visit: Post Op [174] Primary Visit Diagnosis:S/P hernia repair [Z98.890, Z87.19] Prescriptions as of 06/02/2020 Sig: QUETIAPINE 25 MG TABLET Take by mouth daily at bedtim* TAMSULOSIN 0.4 MG CAPSULE Take 1 capsule by mouth daily* DUTASTERIDE 0.5 MG CAPSULE Take 1 capsule by mouth once * CARBIDOPA 25 MG-LEVODOPA 100 * Take 2 tablets by mouth four * ROPINIROLE 3 MG TABLET Take 1 tablet by mouth three * POLYETHYLENE GLYCOL 3350 17 G* Take 17 grams daily as needed * MULTIVITAMIN TABLET Take 1 tablet by mouth once d* SENNOSIDES 8.6 MG TABLET Take 1 tablet by mouth once d* * ASPIRIN 81 MG TABLET,DELAYED * Take one(1) tablet daily. Problem List As Of Date 06/02/2020 Noted Resolved Parkinson disease (HCC) [G20] 10/16/2008 More... Thoracic or lumbosacral neuritis or radiculitis*03/03/2013 Special screening for malignant neoplasms, colo*01/29/2015 0 01/29/2015 Chronic constipation [K59.09] 10/06/2019 More... Other instructions from your clinician: The following instructions are important for you related to your [facility] INSTRUCTIONS FOLLOWING YOUR RECENT HERNIA SURGERY You should be returning to your regular diet, If you have having persistent issues w ith tolerating your diet, please contact our office It is not unusual to have incisional pain for the first 1-2 weeks following surgery. If this persists beyond 2 weeks, contact the office You should leave the Steri-Strips in place for 5 days, OK to remove after that if they have not fallen off on their own. You may retur n to your regular activities. You may drive if you are no longer takin g narcotic pain medication. Climbing stairs is fine. Walking in encouraged. Sitting up f rom bed may be uncomfortable. Sitting up using your lateral abdominal mu scles (sitting up sideways) is usually more comfortable. You should perform no lifting greater than 20lbs for the nex t 6-7 weeks. Usually 8 weeks total from the date of surgery. It is not unusual to have loose stools following surgery. Th is is usually self limited and related to the antibiotics that wer e given during your surgical procedure. Fiber supplementation and yogurt wi th active cultures may help you return to regular bowel activity. If y ou note loose stools persisting for over 2 weeks, or significant cramping or loose bloody stools, contact the office immediately. Contact the office immediately if any of your incisions beco me increasingly tender, red or have drainage. Again, if you have any difficulties or concerns, contact our office immediately. If you note any additional difficulties, questions, or cliff rns, you should contact our office immediately @ [phone] and ask to be transferred to the General Surgery department. Encounter Status:Closed by HEIDI HANKS PA-C on 06/09/20 pt ed on 2020-05-26 PT ED HNO ID: [id number] [place] 05-26-2020 [facility] Author: Janeth (Pennie) PENNIE Segal ([id number]) Service: Nursing Author Type: Registered Nurse Type: Patient Education Filed: 05/26/2020 12:37 PM Note Text: POST OP LEARNING RESPONSE INSTRUCTION PROVIDED TO: Patient and family member METHOD OF INSTRUCTION: Written instruction - handouts Verbal instruction PATIENT / FAMILY RESPONSE: Verbalizes understanding of: INFE CTION MANAGEMENT-Signs and symptoms of an infection and importance of contacting the physician MEDICATION PRESCRIBED-Accurate knowledge of prescribed medic ation prior to discharge PAIN MANAGEMENT-Effective strategies to manage pain in addit ion to pain medication PHYSICAL RESTRICTIONS-Physical restrictions and recommendati ons after discharge from the hospital POST-OPERATIVE INSTRUCTIONS-Correct actions to take to reduc e postoperative complications SYMPTOM MANAGEMENT-Correct actions to take to manage symptom s associated with his/her disease/illness WORSENING CONDITION-Signs and symptoms of a worsening condit ion that warrant a call to the physician WOUND CARE-Correct procedure to perform wound care FOLLOW-UP PLAN: Patient instructed to call with any further issues Contact information given. SUPPLEMENTAL MATERIAL: None REFERRAL (RECOMMENDATION): None Electronically Signed By: Janeth Segal RN In Department: [facility] SURGERY PT ED HNO ID: [id number] Stewart 05-26-2020 [facility] Author: Janeth EspanaRn) Luzma RN ([id number]) Service: Nursing Author Type: Registered Nurse Type: Patient Education Filed: 05/26/2020 8:23 AM Note Text: PRE OP LEARNING ASSESSMENT PROCEDURE/SURGERY: SURGERY: Lap R inguinal hernia repair, La p ventral hernia repair. READINESS TO LEARN COGNITIVE ABILITY: Alert and oriented MOTIVATION TO LEARN: Interested FAMILY SUPPORT: High - Very involved in pt care PATIENT LEARNS BEST BY: Written Instruction - Hand-outs Verbal Instruction FACTORS AFFECTING LEARNING: None PHYSICAL LIMITATIONS AFFECTING LEARNING: None Electronically Signed By: Janeth Segal RN In Department: [facility] SURGERY operative no on 202 OPERATIVE NO HNO ID: [id number] Normal 05-26-20 [facility] Author: Rafa Valdivia ([id number]) Service: General Surgery Author Type: Physician Type: Operative Report Filed: 05/26/2020 3:26 PM Note Text: [facility] - Operative Report JUSTIN THURMAN : 1950 AGE: 69. SEX: M PATIENT TYPE: A HOSP [facility] [place], [place]: [facility] LOCATION: [facility] ATTENDING PHYSICIAN: RAFA VALDIVIA M.D. CSN NUMBER: [id number] DATE OF SURGERY/PROCEDURE: 05/26/2020 INCISION/PROCEDURE START TIME: 10:06 a.m. INCISION CLOSE/PROCEDURE END TIME: 11:12 a.m. PREOPERATIVE DIAGNOSIS: Right inguinal hernia and umbilical hernia, previous bilateral inguinal hernia repair. POSTOPERATIVE DIAGNOSIS: Large indirect and a smaller direct right inguinal hernia and a smaller umbilical hernia. SURGEON: Rafa Valdivia M.D. STONECUTTER: Nelly Domingo PA-C. SURGERY/PROCEDURE: Laparoscopic right inguinal hernia using a Medtronic Dexilant right medium mesh. Reference #[id number], lot #[id number], use by 10/17/2024; and an umbilical hernia repair using a Covidien Parietex 6.6 cm circular mesh, reference #[id number], lot #[id number], expires 1 . ANESTHESIA: General endotracheal. LOG ID: #[id number]. ANESTHESIOLOGIST: Carter Mendoza. ASA: 3. IV FLUIDS: 900 mL. ESTIMATED BLOOD LOSS: Less than 5 mL. URINE OUTPUT: 150 mL, it was slightly blood tinged due to an enlarged prostate with a somewhat traumatic insertion. SPECIMENS: None. DRAINS: Ruano catheter removed. COMPLICATION: None. The patient was taken to PACU in stable condition. DESCRIPTION OF PROCEDURE: The patient's right inguinal area and umbilical site were marked in the holding area. The patient concurred this planned operative site. Sign-in was performed verifying patient, sit e, procedure, position, critical nursing information, VTE and antibiotic p rophylaxis. The patient received 900 mg of clindamycin due to penicillin allergy, had sequential compression devices placed. Following induction o f general anesthetic, a coude Ruano catheter was placed at the level o f the prostate. There was some resistance. I assisted in placing w ith gentle pressure and it did enter relatively easily then. There was a scant amount of blood tinged urine initially, but then the urine c leared up during the procedure. Following this, the abdomen was preppe d and draped in usual fashion. Time-out was performed verifying patient, site, procedure and position. Local anesthetic was injected in the umbilicus. Incision was made dissected down through the fascia. Two sta y sutures were placed on the fascia, incision made through the small h ernia sac and pneumoperitoneum. Marleni trocar was inserted and pneumoperit oneum of 13 mmHg was insufflated. Two 5 mm ports were placed initially a nd then a 3rd 5 port was placed in the left upper quadrant. Visual inspect ion revealed no left inguinal hernia. There was a large indirect right in guinal hernia with a loop of small bowel present within the hernia. This was reduced gently. Following this, a window made in the periton eum and mobilization of the peritoneum was performed down to the pub ic tubercle, Obie ligament was clearly dissected and visualized. There was a small direct defect, just medial to the epigastric vessels. This w as reduced and the large hernia sac was also fully reduced. Once this w as completed with adequate preperitoneal space created, the medium Dextil e mesh was placed and secured with Protac tacks to Obie ligament medi ally and AbsorbaTack to the transversus arch. With good position of t he mesh, the peritoneum was closed with a running 3-0 V-Loc running sutur e. At this point, there was 1 adhesion to the umbilicus of omentum. Thi s was taken down using the Harmonic Scalpel. The 6 cm circular mesh was placed intra-abdominally and secured circumferentially with Protac tacks and then through the fascia with transfixing 0 Prolene sutures. There was good visual placement. At this point, the 5 port was removed unde r direct visualization. Pneumoperitoneum was released. The skin was c losed with interrupted 4-0 Monocryl running interrupted subcuticular lantigua tures. Steri-Strips dressing applied. The patient tolerated the pro cedure well. The Ruano catheter was removed. There was some blood at the meatus, but no gross bleeding. Nelly Domingo PA-C was my 1st assistant oceanographer. She assisted in visualization and retraction, subcuticular closure. There we re no qualified resident surgeons available. Rafa Valdivia M.D. RG:[id number] /[id number] nursing prog on NURSING HNO ID: [id number] Stewart 05-26-2020 [facility] Author: Janeth (Rn) PENNIE [facility] Service: Nursing (00 [phone]) Author Type: Registered Nurse Type: Nursing Progress Note Filed: 05/26/2020 1:13 PM Note Text: Nursing Progress Note Patient Name: Justin Thurman Patient Location: [facility] pt assisted with getting dressed and up into wheelchair. Melissa y stiff from Parkinson's. Relates pain 6/10 after getting up to w/c, decl tessy offered for pain meds, states he will take meds when he gets in the car. and pt given D/C instructions, no further questions voiced, disc ussed splinting abd with position changes and movements, ice pack Sent home with pt, no change to scant bloody drainage to dressings observed . This note was completed by: Janeth Segal RN NURSING HNO ID: [id number] Stewart 05-26-2020 [facility] Author: Janeth (Rn) PENNIE Segal [facility] Service: Nursing (00 000) Author Type: Registered Nurse Type: Nursing Progress Note Filed: 05/26/2020 8:45 AM Note Text: Nursing Progress Note Patient Name: Justin Thurman Patient Location: [facility] Surgery/[facility] Surgery pt ready for OR, call light in reach, called to bedside , will take wedding band and glasses. This note was completed by: Janeth Segal RN history physical on 2020-05-26 HISTORY HNO ID: [id number] Normal 05-26-2020 [place] PHYSICAL Author: [facility] Service: General Surgery ([id number]) Author Type: Physician Type: HANDP Filed: 05/26/2020 9:05 AM Note Text: HISTORY AND PHYSICAL ? Justin Thurman 1950 ? ? REFERRING PHYSICIAN: Catalino Posada MD ? CHIEF COMPLAINT: Consult (Hernia consult ) ? HPI: Justin is a 69 year old male who initially presented i september of this year with a complaint of a bulge without any true disco mfort in his right inguinal region. The patient notes a history of both b enign prostatic hypertrophy with voiding difficulties and chronic constipation. He notes that his hernia while asymptomatic is growing over time. He presented to [facility] for a flare of his P arkinson's symptoms and underwent a CT scan at that time which demonstr ated a right inguinal hernia with a loop of small bowel contained within the hernia. ? The patient had a previous open bilateral inguinal hernia re pair in the late . He understands no mesh was placed in either groin during that repair. ? The patient previously noted no symptoms of bowel obstructio n and denies nausea or vomiting. ? The patient smokes a pipe regularly which she is willing to try to quit prior to surgery. He also was just started on smooth muscle relaxers for chronic constipation and Flomax for his BPH issues. ? The patient was seen by his primary care physician who felt the patient has a hernia. Justin was referred for evaluation and treatm ent. ? The patient is being seen by me today at the request of Dr. Catalino Posada MD for my opinion and advice regarding a right i nguinal hernia with the above issues. ? He returns now noting that he is smoking his pipe twice a da y but noting more discomfort in his inguinal area. He presented to the ER 2 weeks previously due to increasing pain in the area. He is urinati ng better without straining and his constipation issues are under cont rol ? ? PAST MEDICAL HISTORY PAST MEDICAL HISTORY Diagnosis Date - Paralysis agitans (HCC) ? - Parkinson disease (HCC) ? ? ? PAST SURGICAL HISTORY PAST SURGICAL HISTORY Procedure Laterality Date - COLONOSCOP W/ OR W/O [facility] SPEC ? 01/29/15 ? Colonoscopy - COLONOSCOP W/ OR W/O [facility] SPEC ? 02/18/2018 ? Colonoscopy - REPAIR ING HERNIA,5+Y/O,REDUCIBL ? ? ? Hernia repair, inguinal, times 2 ? ? ? CURRENT MEDICATIONS Current Outpatient Medications Medication Sig - tamsulosin ER (FLOMAX) 0.4 mg Take 1 capsule by mouth milad y at bedtime. - dutasteride (AVODART) 0.5 mg capsule Take 1 capsule by sander th once daily. - carbidopa-levodopa (SINEMET 25-100) 25-100 mg per tablet T liza 2 tablets by mouth four times daily. - rOPINIRole Hydrochloride (REQUIP) 3 mg tablet Take 1 table t by mouth three times daily. - polyethylene glycol 3350 (MIRALAX) 17 gram/dose powder Joseph e 17 grams daily as needed for constipation - multivitamin tablet Take 1 tablet by mouth once daily. - senna (SENNA) 8.6 mg tab Take 1 tablet by mouth once daily as needed. - ASPIRIN 81 MG TAB, DELAYED RELEASE Take one(1) tablet milad y. ? No current facility-administered medications for this visit. ? ? ALLERGIES: Penicillins ? PERSONAL HISTORY: SOCIAL HISTORY Social History ? Tobacco Use - Smoking status: Current Every Day Smoker ? ? Types: Pipe - Smokeless tobacco: Never Used - Tobacco comment: Pipe Substance Use Topics - Alcohol use: No ? ? Frequency: Monthly or less ? ? Binge frequency: Never - Drug use: No ? FAMILY HISTORY: FAMILY HISTORY History reviewed. No pertinent family history. ? REVIEW OF SYMPTOMS: The review of systems data was entered by the nurse and revi ewed by me ? There are no exam notes on file for this visit. PHYSICAL EXAMINATION: ? General: The patient is 69 year old male, well nourished, we ll hydrated in no acute distress. The patient is oriented to time, place , and person. ? VITALS: Blood pressure 112/80, pulse 83, temperature 36.7 ?C (98.1 ?F), height 179.1 cm (5' 10.5), weight 90.4 kg (199 lb 3.2 oz), SpO2 98 %. Body mass index is 28.18 kg/m?. ? HEENT: Normal cephalic, ataumatic, pupils are equally round, sclera are anicteric, mucous membranes are moist, oropharynx is clear. Neck has no masses, asymmetry or lymphadenopathy. Thyroid is unremarkabl e. ? Respiratory: Clear to auscultation and percussion. Normal re spiratory excursion and pattern. ? Cardiac: Examination is regular rate and rhythm. ? Abdominal exam: Soft, nontender, with no palpable masses. No hepatosplenomegaly. A moderate reducible right inguinal benito ia, no left inguinal., A small umbilical hernias is noted ? Rectal exam: exam deferred ? Extremities: no clubbing, cyanosis or edema. No adenopathy. ? Other: ? ? LABORATORY VALUES: As Noted ? RADIOLOGIC STUDIES: As Noted ? Assessment IMPRESSION: Recurrent right inguinal hernia, umbilical herni a ? PLAN: My plan is to perform a laparoscopic right inguinal he rnia repair, and laparoscopic ventral hernia repair. The planned surgical procedure was discussed extensively with the patient. The risks, benef its, anticipated outcomes and possible complications were mention [facility] that all hernia repair surgery has a chance of re currence and/or chronic post operative pain. My staff has also explai sxito the procedure in understandable terms and the patient was given the option to take printed material concerning the planned procedure. The patient had the opportunity to ask questions concerning the planned proc edure. The patient freely consents to the planned procedure. ? ? All tobacco/nicotine use needs to be completely stopped at [facility] 4 weeks prior to surgery and not used in any form for 8 weeks follow ing surgery due to nicotine's prevention of appropriate wound healing Th e patient states he will stop as of yesterday. ? Anticipated Surgical Procedure/ CPT Code: laparoscopic right inguinal hernia repair with mesh - 66509-890 ? Anticipated Anesthetic: General ? Patient weight: Blood pressure 112/80, pulse 83, temperature 36.7 ?C (98.1 ?F), height 179.1 cm (5' 10.5), weight 90.4 kg (199 l b 3.2 oz), SpO2 98 %. BMI: Body mass index is 28.18 kg/m?. ? Planned antibiotic: clindamycin 900mg IVPB stone crusher operator to OR ? SCDs needed - Yes ? Furniture Delivery Driver Needed - Yes ? My findings have been communicated to Dr. Catalino Posada MD via shared medical record. This note will be forwarded to Dr. Maria Esther Posada MD. ? Diagnoses: (K43.9) Hernia of abdominal wall (R10.84) Generalized abdominal pain ? Anticipated Surgical Procedure/ CPT Code: laparoscopic ingui nal hernia repair with mesh, recurrent - 35232-577 laparoscopic ventral hernia repair - 36251-902 ? Anticipated Anesthetic: General ? Patient weight: Blood pressure 112/80, pulse 83, temperature 36.7 ?C (98.1 ?F), height 179.1 cm (5' 10.5), weight 90.4 kg (199 l b 3.2 oz), SpO2 98 %. BMI: Body mass index is 28.18 kg/m?. ? Planned antibiotic: clindamycin 900mg IVPB stone crusher operator to OR ? SCDs needed - Yes ? Furniture Delivery Driver Needed - Yes ? Return to Clinic: The patient is instructed to follow-up madison muhammad one week post operatively. ? ? ? Rafa Valdivia MD ? ? ? REVIEW OF SYSTEMS: General: The patient NOTES fatigue, NOTES weight loss, denie s weight gain, denies feeling hot, and denies feelings of cold . Eyes: The patient denies glaucoma, denies eye injury/surgery , wears glasses or contacts. Ear/Nose/Throat: The patient denies allergies, denies hayfev er, denies ear infections, and denies bloody noses. Cardiovascular: The patient denies chest pain, denies heart disease, denies high blood pressure,denies cardiac stent, denies prio r heart attack, denies irregular heart beat, denies high cholesterol , denies poor circulation, denies heart failure, other cardiac issues, den ies claudication, denies cold feet, denies peripheral arterial s tent. Respiratory: The patient denies tuberculosis, denies pneumon ia, denies frequent cough, denies pulmonary embolism, denies shi rtness of breath, and denies coughing up blood. Gastrointestinal: The patient denies difficulty swallowing, denies acid reflux, denies ulcers, denies vomiting, denies jaundice /hepatitis, denies gallbladder problems, denies black or tarry stools, d enies hemorrhoids, denies bleeding from rectum, denies diverticuli tis, NOTES constipation, denies diarrhea, denies loss of stool control, and NOTES hernias. Kidney/Bladder: The patient denies kidney stones, denies uri ne infections, and denies bloody urine. Skin: The patient denies a history of skin cancer, denies bleeding/changing moles, and denies a history of skin rash. Neurologic: The patient denies a history of epilepsy/convuls ions, denies headaches, denies head/spinal injuries, and denies st roke/TIA. Psychiatric: The patient denies psychiatric medications, den ies depression, and denies voices, denies substance abuse. Endocrine: The patient denies thyroid disorders, denies diab etes, and denies hormonal problems. Hematologic: The patient denies a history of bruising, denie s bleeding, and denies anemia, denies blood clots. Infections: The patient denies a history of measles and mump s, denies rheumatic fever, and denies sexually transmitted dise ases. Musculoskeletal: The patient denies back pain/injury, denies back problems, denies sciatica, denies knee/foot trouble, denies arthritis, or denies gout. ? ? When was patient's last Mammogram screening? N/A ? Last Colonoscopy: 02/2018 ? Tyesha Cobb LPN brief op not on 202 BRIEF OP NOT HNO ID: [id number] Normal 05-26-20 [facility] Author: Rafa Valdivia ([id number]) Service: General Surgery Author Type: Physician Type: Brief Op Note Filed: 05/26/2020 11:24 AM Note Text: BRIEF OPERATIVE NOTATION FOR SURGICAL PROCEDURE. Justin Thurman [id number] male LOG ID: [id number] Surgery/Procedure Date: 05/26/2020 Incision/Procedure Start Time: 10:06 AM Incision Close/Procedure End Time: 11:12 AM Surgeon(s)/Proceduralist(s) and Furniture Delivery Driver(s): Surgeon(s) and Role: * Rafa Valdivia - Primary Physician Furniture Delivery Driver: Nelly Domingo (Pa) REFERRING PHYSICIAN: Outpatient DEPT: [facility] PROVIDER: Ranjana POS: [id number] ANESTHESIA: General ASA CLASS: 3 DIAGNOSIS: right inguinal and umbilical hernia PROCEDURE: laparoscopic right inguinal hernia repair with [facility] - 59825-856 laparoscopic ventral hernia repair - 61036-205 IVF: 900 EBL: <5 Urine - 150 - slightly traumatic insertion Specimens: none ADDITIONAL DIAGNOSES: FINDINGS: direct and indirect COMPLICATIONS: None PMHx - PAST MEDICAL HISTORY Diagnosis Date - Paralysis agitans (HCC) - Parkinson disease (HCC) COMORBIDITIES - None Post Op Occurrences - None Wound Classification - Clean Operative note dictated in the dictation system. - [id number] Rafa Valdivia MD anes pre-op on 2019 ANES PRE-OP HNO ID: [id number] Normal [address] [place] [address] Author: Carter Mendoza ([id number]) Service: ? Author Type: Anesthesiologist Type: Anesthesia Preprocedure Evaluation Filed: 05/26/2020 8:12 AM Note Text: ANESTHESIOLOGY DAY OF SURGERY NOTE : 1950 Procedure(s) (LRB): LAPAROSCOPIC HERNIORRHAPHY, INGUINAL RECURRENT (Right) LAPAROSCOPIC REPAIR HERNIA REDUCIBLE VENTRAL W/MESH (N/A) Surgeon(s): Rafa Valdivia Estimated body mass index is 28.55 kg/m? as calculated from the following: Height as of 05/19/20: 177.8 cm (5' 10). Weight as of 05/19/20: 90.3 kg (199 lb). Most recent hematocrit and potassium results: Hematocrit 41.3 06/24/2019 Potassium 4.2 06/24/2019 Relevant Problems No relevant active problems I - PHYSICAL EVALUATION AIRWAY Patient intubated: No. Mallampati: II. TM distance: >3 FB. Neck ROM: full ROM without neurological symptoms. Mouth opening: adequate. Short neck: no. Thick neck: no DENTAL Dental findings: teeth intact. Additional exam findings: no II - ANESTHESIA PLAN ASA Score: 3 Anesthetic Plan: general Airway type: ETT NPO Status: adequate Monitoring plan: Standard ASA. Postoperative analgesic plan: parenteral or oral opioids and multimodal analgesia. Anesthetic Risks, Benefits, Alternatives, Personnel Discusse d. Consent obtained from: patient. Patient / Surrogate agrees to blood products: yes DNR status not reviewed with patient and/or family prior to surgery. Significant changes in the patient condition since the Histo ry and Physical, not otherwise documented in primary service progre ss note: no. Potential Anesthesia issues that may suggest increased risk of complications or contraindication to planned procedure: none . No vitals data found for the desired time range. No current facility-administered medications on file as of . Outpatient Medications as of 05/26/2020 Medication Sig - tamsulosin ER (FLOMAX) 0.4 mg Take 1 capsule by mouth milad y at bedtime. - dutasteride (AVODART) 0.5 mg capsule Take 1 capsule by sander th once daily. - carbidopa-levodopa (SINEMET 25-100) 25-100 mg per tablet T liza 2 tablets by mouth four times daily. - rOPINIRole Hydrochloride (REQUIP) 3 mg tablet Take 1 table t by mouth three times daily. - polyethylene glycol 3350 (MIRALAX) 17 gram/dose powder Joseph e 17 grams daily as needed for constipation - multivitamin tablet Take 1 tablet by mouth once daily. - senna (SENNA) 8.6 mg tab Take 1 tablet by mouth once daily as needed. - ASPIRIN 81 MG TAB, DELAYED RELEASE Take one(1) tablet milad y. I have interviewed and examined the patient. I have reviewed the medical record and/or the pre-anesthesia evaluation, pertinent labs, and test results. This contains updated information obtained within 48 hours o f Surgery/Procedure. SIGNATURE: Carter Mendoza MD PATIENT NAME: Justin cantrell DATE: May 26, 2020 TIME: 8:12 AM CSN: [id number] anes postproc eval on 2020-05-26 ANES POSTPROC EVAL HNO ID: [id number] Normal [facility] Author: Carter Mendoza ([id number]) Service: ? Author Type: Anesthesiologist Type: Anesthesia Postprocedure Evaluation Filed: 05/26/2020 5:43 PM Note Text: POST ANESTHESIA EVALUATION NOTE : 1950 Procedure Summary Date: 05/26/20 Room / Location: [place] [address] / [place] OR Anesthesia Start: 937 Anesthesia Stop: 1129 Procedures: LAPAROSCOPIC HERNIORRHAPHY, INGUINAL RECURRENT (Right Groin) LAPAROSCOPIC REPAIR HERNIA REDUCIBLE VENTRAL W/MESH (N/A Umb ilicus) Diagnosis: Ventral hernia without obstruction or gangrene Inguinal hernia without obstruction or gangrene, recurrence not specified, unspecified laterality Surgeons: Rafa Valdivia Responsible Provider: Carter heller Anesthesia Type: general ASA Status: 3 Anesthesia Type: general Last vitals Vitals Value Taken Time BP 144/77 05/26/20 1215 Temp 36 ?C (96.8 ?F) 05/26/20 1215 Pulse 72 05/26/20 1215 Resp 16 05/26/20 1215 SpO2 94 % 05/26/20 1215 Post Anesthesia Patient Status Patient Evaluation: PACU. PACU/ICU Patient Condition: stable. Anticipated Disposition: phase 2 then home. Neurological Status: aware and responsive. Pulmonary Status: breathing comfortably on room air Airway Control: returned to baseline unsupported. Cardiovascular Status: stable. Pain Management: clinically adequate - multimodal analgesia pain management approach Postoperative Hydration: acceptable. Intraoperative Events: no significant anesthesia events Post Operative Nausea/Vomiting Status: Anesthetic Observations: no significant anesthetic observations Recommendation: continue current plan of care. SIGNATURE: Carter Mendoza MD PATIENT NAME: Justin cantrell DATE: May 26, 2020 TIME: 5:43 PM CSN: [id number] preop/preproc covid on 2020-05-25 COVID 19 Result Negative for Negative for Normal 05-25-20 [facility] AEROSPACE QUALITY ENGINEER COVID19 (SARS COVID19 (SARS Cl estevan (75703) CoV2) by PCR. CoV2) by PCR. Comment: Result Comment: This test wa s developed and its performance characteristics determined by [facility]'s [facility] [place]. This test has been authorized by FDA under an Emergency Us e Authorization (EUA). This test has been validated in accordance with the FDA's Guidance Document Policy for Diagnostics Testing in Laboratories Certified to Perform High Complexity Testing under CLIA prior to Emergency use Authorization for Coronavir us Disease 2019 during the Public Health Emergency issued on November 15, 2019. Performed By: #### POCOVD ## ##[facility] [id number] [place], [place] [phone] COVID 19 Source AEROSPACE QUALITY ENGINEER UPPER RESPIRATORY TRACT Normal 05-25-2020 [facility] ([id number]) Comment: Performed By: #### POCOVD ## ##[facility] [id number] [place], [place] [phone] evan on 2020-05-21 MINN Telephone (HCSIND) Normal 05-21-2020 [facility] JUSTIN THURMAN ([id number]) 1950 [facility] Date Time Provider Department () 05/21/20 SELF HCSIND During your visit today, we recorded the following informati on about you: SUSAN Ng 05/21/2020 5:15 PM Signed Spoke with the patient to confirm SOC on 05/31/20 Allergies As of Date: 05/21/2020 Noted Allergy Reaction PENICILLINS 09/18/2008 Date Reviewed: 05/19/2020 Reviewed by: Karen (Circuit Board Inspector) Adam - Fully Assessed Reason for Visit: Home Care [[id number]] Prescriptions as of 05/21/2020 Sig: ESCITALOPRAM 10 MG TABLET Take 10 mg by mouth once milad* QUETIAPINE 25 MG TABLET Take by mouth daily at bedtim* TAMSULOSIN 0.4 MG CAPSULE Take 1 capsule by mouth daily* DUTASTERIDE 0.5 MG CAPSULE Take 1 capsule by mouth once * CARBIDOPA 25 MG-LEVODOPA 100 * Take 2 tablets by mouth four * ROPINIROLE 3 MG TABLET Take 1 tablet by mouth three * POLYETHYLENE GLYCOL 3350 17 G* Take 17 grams daily as needed * MULTIVITAMIN TABLET Take 1 tablet by mouth once d* SENNOSIDES 8.6 MG TABLET Take 1 tablet by mouth once d* * ASPIRIN 81 MG TABLET,DELAYED * Take one(1) tablet daily. Problem List As Of Date 05/21/2020 Noted Resolved Parkinson disease (HCC) [G20] 10/16/2008 More... Thoracic or lumbosacral neuritis or radiculitis*03/03/2013 Special screening for malignant neoplasms, colo*01/29/2015 0 01/29/2015 Chronic constipation [K59.09] 10/06/2019 More... Encounter Status:Closed by CHARY MURPHY on 05/21/20 nursing prog on NURSING PROG HNO ID: [id number] Normal 05-19-[address] [place] [address] Author: Mona EspanaRnZunilda Gambino RN ([id number]) Service: ? Author Type: Registered Nurse Type: Nursing Progress Note Filed: 05/19/2020 3:01 PM Note Text: PACC Nurse Progress Note History AND Physical: PACC Visit Date: 05/19/2020 Original HANDP Date: 05/19/2020 ED visit Date: N/A Outside HANDP Scanned Date: N/A Labs Within Last 6 Months: Covid19 - 05/25/2020 TBD Imaging Within Last 12 Months: CT Scan abd/pel - 10/01/2019 outside study, scanned into Epic Cardiac Testing: N/A Risk Assessment: N/A Anesthesia Review: N/A Narrative: N/A Pre-op Considerations: Chronic constipation - Symptoms stable. Uses Miralax prn Parkinson disease - Symptoms stable currently. Follows with Neurology every 6 months in [place]. Former Smoker - pipe x45 years, quit 05/05/2020 Chart Check: COMPLETED - Covid19 05/25/2020 TBD Mona Gambino RN May 19, 2020 2:57 PM history physical on 2020-05-19 HISTORY HNO ID: [id number] Normal 05-19-2020 [place] [facility] Service: ? ([id number]) Author Type: Nurse Practitioner Type: HANDP Filed: 05/19/2020 2:18 PM Note Text: HISTORY AND PHYSICAL EXAMINATION SERVICE DATE: 05/19/2020 SERVICE TIME: 1:46 PM PRIMARY CARE PHYSICIAN: Catalino Posada MD REASON FOR VISIT: Justin Thurman is a 69 year old male who is scheduled for LAPAROSCOPIC HERNIORRHAPHY, INGUINAL RECURRENT, LAPAROSCOPIC REPAIR HERNI A REDUCIBLE VENTRAL W/MESH at the request of Dr. Conway for consultation. My final recommendation will be communicated back to the requesting p femi by way of shared medical record or letter. The patient has the following: ACTIVE PROBLEM LIST Parkinson Disease (Hcc) Thoracic Or Lumbosacral Neuritis Or Radiculitis, Unspecified Chronic Constipation Subjective CHIEF COMPLAINT: Pre-Op Exam HPI: 69 year old male patient presents today with ventral he rnia without obstruction or gangrene. Patient with history of bilateral i nguinal hernias, s/p repair. He had noted recurrent symptoms of bulg ing in the right groin over six months ago. He believes this is a outco me of chronic constipation d/t parkinson's disease. He often strains with bowel movements. He uses miralax as needed. The hernia is reducibl e and causes discomfort when it protrudes. He has had two episodes of sev ere discomfort in which he was seen in the ED for. He denies any hx of gerd , nausea, vomiting, diarrhea, hx of liver disease or dysphagia. PAST MEDICAL HISTORY Diagnosis Date - Paralysis agitans (HCC) - Parkinson disease (HCC) PAST SURGICAL HISTORY Procedure Laterality Date - COLONOSCOP W/ OR W/O [facility] SPEC 01/29/15 Colonoscopy - COLONOSCOP W/ OR W/O [facility] SPEC 02/18/2018 Colonoscopy - REPAIR ING HERNIA,5+Y/O,REDUCIBL Hernia repair, inguinal, times 2 History reviewed. No pertinent family history. SOCIAL HISTORY: Social History Tobacco Use - Smoking status: Former Smoker Years: 45.00 Types: Pipe Quit date: 05/05/2020 Years since quittin.0 - Smokeless tobacco: Never Used - Tobacco comment: Pipe Substance Use Topics - Alcohol use: No Frequency: Monthly or less Binge frequency: Never - Drug use: No MEDICATIONS: Prior to Admission medications as of 05/19/20 1416 Medication Sig Last Dose Taking escitalopram oxalate (LEXAPRO) 10 mg tablet Take 10 mg by mo uth once daily. Taking Yes QUEtiapine (SEROQUEL) 25 mg tablet Take by mouth daily at be dtime. Taking Yes tamsulosin ER (FLOMAX) 0.4 mg Take 1 capsule by mouth daily at bedtime. Taking Yes dutasteride (AVODART) 0.5 mg capsule Take 1 capsule by mouth once daily. Taking Yes carbidopa-levodopa (SINEMET 25-100) 25-100 mg per tablet Joseph e 2 tablets by mouth four times daily. Taking Yes rOPINIRole Hydrochloride (REQUIP) 3 mg tablet Take 1 tablet by mouth three times daily. Taking Yes polyethylene glycol 3350 (MIRALAX) 17 gram/dose powder Take 17 grams daily as needed for constipation Taking Yes multivitamin tablet Take 1 tablet by mouth once daily. Takin g Yes senna (SENNA) 8.6 mg tab Take 1 tablet by mouth once daily a s needed. Taking Yes ASPIRIN 81 MG TAB, DELAYED RELEASE Take one(1) tablet daily. Taking Yes No medication comments found. CURRENT ALLERGIES: ALLERGIES Allergen Reactions - Penicillins REVIEW OF SYSTEMS: PAIN ASSESSMENT: General: No weight loss, malaise or fevers. Neuro: (+) PD- controlled on Rx. Follows with neurology in [place]. Symptoms stable. No history of CVA, TIA, seizures, migraines, numbnes s in hands or feet, MS or impaired sensorium. Respiratory: No history of current cough or dyspnea, or pneu monia in the past 6 weeks. No history of respiratory/pulmonary symptoms o r problems. Cardiovascular: No history of HTN requiring medication, no h istory of angina, CHF, [place], cardiac surgery or stents. Denies rest pain , gangrene or revascularization/amputation for PVD. No history of cardiova scular symptoms or problems. GI: See HPI : No history of dysuria, frequency or incontinence,, stone s or chronic kidney disease Endocrine: No history of diabetes. Has not taken steroids wi thin the past 30 days. No history of endocrinological symptoms or problems . Hematology: No history of bleeding or clotting disorder. Pt is not taking anti-coagulation or platelet medications. No history of genie tological symptoms or problems. Oncology: No history of CA metastasis, chemo within 30 days, or radiotherapy within 90 days. Has not lost 10% of body wt in 6 months. No history of oncological symptoms or problems. Psych: No history of psychiatric symptoms or problems. Musculoskeletal: Negative for joint pain or swelling, back p ain or muscle pain. Skin: Negative for lesions, rash and itching. Objective PHYSICAL EXAM: VITALS: BP 116/69 Pulse 76 Temp (Src) 98 (Tympanic) Resp 16 Ht 5' 10 (1.78m) Wt 199 lb (90.3kg) SpO2 97% BMI 28.55 kg/(m2). General: Alert and oriented, No acute distress, Healthy appe arance Skin: Normal color, no rash, no lesions. HEENT: EOM, pupils equal, round and reactive., No carotid br uits Cardiovascular: Normal S1 AND S2, no rubs, murmurs or gallops. No JVD. Pulse regular. Lungs: Normal breath sounds, no wheezes or crackles., No nicole st deformities or chest wall tenderness. Abdomen: Soft, non-tender, no rigidity., No masses or organo megaly., Positive bowel sounds Extremities: No deformity, no edema or tenderness, no joint swelling or clubbing. Neurological: Parkinson's features Pulses: Carotid and radial pulses normal +2. Pedal pulses no rmal +2. Diagnostic tests reviewed for today's visit: Lab Value Units Date High Low HB No results within date range. HCT No results within date range. WBC No results within date range. PLT No results within date range. NA No results within date range. K No results within date range. GLUC No results within date range. BUN No results within date range. CREAT No results within date range. PTSEC No results within date range. INR No results within date range. APTT No results within date range. ALT No results within date range. AST No results within date range. TBILI No results within date range. TSH No results within date range. Lab Value Units Date High Low HCGQT No results within date range. UHCG No results within date range. HCG, BODY* No results within date range. Lab Value Units Date High Low ABORHD No results within date range. ABSCREEN No results within date range. No results found for: HBA1C Most recent labs-In Care Everywhere 04/19/20 Most recent imaging Assessment/Plan Chronic constipation Assessment: Symptoms stable. Uses Miralax prn. Parkinson disease (HCC) Assessment: Symptoms stable currently. Follows with Neurolog y every 6 months in [place]. METS: Climb a flight of stairs or walk up a hill (5.50 METs) Patient denies any chest pain or undue shortness of breath w ith the above physical activity. ASA Class: 2 ANESTHESIA FINDINGS: Intubation History: No history of difficult intubation Significant Anesthesia Considerations: None Airway Exam: General: Normal appearance Mallampati Score is CLASS III ULBT: Class I - Lower incisors can bite the upper lip above the jose line Neck: Distance from hyoid to mentum during neck extension is at least 3 finger breaths, Limited movement turning to one or both side s Mouth: Normal tongue size and Mouth opening greater than 2 f lee breaths Dentition: Intact Airway History: No history of difficult intubation STOP BANG Score: Criteria: Snoring Age over 50 (69 year old) Male gender Score = 3 PLAN This patient is optimally prepared for surgery. CONSULTS: Patient does not require consults for optimization at this [facility]. The Following Tests/Procedures Have Been Initiated: Labs not indicated per PACC protocol, EKG not indicated per PACC protocol Planned Anesthetic: General Instructions Given to Patient: Instructions located in the after visit summary. Patient given verbal and written preop instructions and voic es comprehension and compliance. SIGNATURE: Karen Medina APRN.MIN PATIENT NAME: Justin Thurman DATE: May 19, 2020 TIME: 1:46 PM PAGER/CONTACT #: evan on 2020-05-14 MINN Telephone (HCSIND) Normal 05-14-2020 [place] [facility] JUSTIN THURMAN ([id number]) 1950 [facility] Date Time Provider Department ([id number]) 05/14/20 JOSÉ MCDANIELS (GERARD) HCSIND During your visit today, we recorded the following informati on about you: José Mcdaniels LPN, GERARD 05/14/2020 4:09 PM Signed [facility] received a referral for this patient from [facility] (office of Dr. Arya Pozo and Rosalba Kaufman [facility]). Office visit notes were included but will need addendum added due to patients insuran ce and Medicare Guidelines. I tried to call the office to request this but the voice messa ge states the office is closed already - office times listed o n the voicemail are 8-430pm - my call was placed within that time fram e. Will call back on Sunday to request additional documentation so that I can continue to proceed with the referral. GERARD Brice LPN, LPN 05/20/2020 12:54 PM Signed Have made several phone calls to the [place] [facility] office to request additional documentation that is needed per Medicare g uideltessy. Each time I call the office hours are listed but the message states the office is closed. Phone calls are always made within their listed office hour s. LVM for daughter Ximena to update her on referral status. Will continue to reach out to [place] [facility] for additional documentation needed for refe rral. GERARD Brice LPN, LPN 05/21/2020 11:13 AM Signed Spoke with Zakiya at [facility] regarding additiona l documentation needed per Medicare guidelines for home care se rvices. Zakiya will get a message to the [facility] and have the addendum added. Fax num bucky provided so that they can fax over the note once the addendum is in place. José Mcdaniels LPN Allergies As of Date: 05/14/2020 Noted Allergy Reaction PENICILLINS 09/18/2008 Date Reviewed: 05/02/2020 Reviewed by: Rafa Valdivia - Fully Assessed Reason for Visit: Home Care [[id number]] Prescriptions as of 05/14/2020 Sig: TAMSULOSIN 0.4 MG CAPSULE Take 1 capsule by mouth daily* DUTASTERIDE 0.5 MG CAPSULE Take 1 capsule by mouth once * CARBIDOPA 25 MG-LEVODOPA 100 * Take 2 tablets by mouth four * ROPINIROLE 3 MG TABLET Take 1 tablet by mouth three * POLYETHYLENE GLYCOL 3350 17 G* Take 17 grams daily as needed * MULTIVITAMIN TABLET Take 1 tablet by mouth once d* SENNOSIDES 8.6 MG TABLET Take 1 tablet by mouth once d* * ASPIRIN 81 MG TABLET,DELAYED * Take one(1) tablet daily. Problem List As Of Date 05/14/2020 Noted Resolved PARALYSIS AGITANS [G20] 10/16/2008 More... Thoracic or lumbosacral neuritis or radiculitis*03/03/2013 Special screening for malignant neoplasms, colo*01/29/2015 0 01/29/2015 Chronic constipation [K59.09] 10/06/2019 More... Encounter Status:Closed by JOSÉ MCDANIELS on 05/14/20 hosp on 2020-05-03 HOSP Patient:Justin Thurman 05-03 [facility] ) Height:5' 10(1.778 m) Weight:199 lb (90.266 kg) Outpatient Medications as of 05/26/20: escitalopram oxalate (LEXAPRO) 10 mg tablet QUEtiapine (SEROQUEL) 25 mg tablet tamsulosin ER (FLOMAX) 0.4 mg dutasteride (AVODART) 0.5 mg capsule carbidopa-levodopa (SINEMET 25-100) 25-100 mg per tablet rOPINIRole Hydrochloride (REQUIP) 3 mg tablet polyethylene glycol 3350 (MIRALAX) 17 gram/dose powder multivitamin tablet senna (SENNA) 8.6 mg tab ASPIRIN 81 MG TAB, DELAYED RELEASE Admission/Clinic Administered Medications as of 05/26/20: lactated ringers infusion Problem List: Parkinson disease (HCC) [G20] Thoracic or lumbosacral neuritis or radiculitis, unspecified [[id number]] Chronic constipation [K59.09] Allergies: Penicillins Date Verified: 05/26/20 Lab Values No results within the last 30 days for the following basenam es: K,HCT Progress Notes (HOME CARE): SUSAN Ng 05/21/2020 5:15 PM Signed Spoke with the patient to confirm SOC on 05/31/20 Progress Notes (HOME CARE): José Mcdaniels LPN, LPN 05/14/2020 4:09 PM Signed [facility] received a referral for this patient from [facility] (office of Dr. Arya Pozo and Rosalba Kaufman CNP). Office visit notes were included but will need addendum added due to patients insuran ce and Medicare Guidelines. I tried to call the office to request this but the voice message states the office is closed already - office times listed on the voicemail are 8-430pm - my call was placed within that time frame. Will call back on Sunday to request additional documentation so that I can continue to proceed with the referral. GERARD Brice LPN, LPN 05/20/2020 12:54 PM Signed Have made several phone calls to the [place] [facility] office to request additional documentation that is needed per Medicare g uidelines. Each time I call the office hours are listed but the message states the office is closed. Phone calls are always made within their listed office hours. LVM for daughter Ximena to update her on referral status. Will continue to r each out to [facility] for additional documentation needed for referral. GERARD Brice LPN, LPN 05/21/2020 11:13 AM Signed Spoke with Zakiya at [facility] regarding additional documentation needed per Medicare guidelines for home care servic es. Zakiya will get a message to the [facility] and have the addendum added. Fax number provided so that they can fax over the note once the addendum is in place. GERARD Brice on 2020-05-03 EVAN Telephone (GENWINTER) Normal 05-03-2020 [facility] JUSTIN THURMAN ([id number]) 1950 [facility] Date Time Provider Department ([id number]) 05/03/20 RAFA VALDIVIA During your visit today, we recorded the following informati on about you: Rebecca Da Silva 05/03/2020 3:09 PM Signed 05-24-2020 [id number] AND [id number] H JACQUES ERAZO , spoke to patients who was very inpatient and wanted this sc heduled ANALI. Explained to patient if there is any feeling that Justin is smoking the procedure will be cancelled. And we will call and check Rebecca Bynumey 05/03/2020 3:09 PM Signed call patient make sure he is not smoking Rebecca Bynumey 05/03/2020 3:26 PM Signed patient schedule patient for COVID Rebeccalolita Da Silva 05/10/2020 2:44 PM Signed Heidi, can you please file this covid test for me. Thank yo u Rebecca Hanks PA-C 05/10/2020 3:27 PM Signed Order filed Rebecca Da Silva 05/20/2020 10:48 AM Signed Per patient , patient di d QUIT (for now) smoking and is all set for surgery Rebecca Da Silva Allergies As of Date: 05/03/2020 Noted Allergy Reaction PENICILLINS 09/18/2008 Date Reviewed: 05/02/2020 Reviewed by: Rafa Valdivia - Fully Assessed Reason for Visit: 05-24-2020 Hernia repair [Other] Primary Visit Diagnosis:Ventral hernia w ithout obstruction or gangrene [K43.9] Other Visit Diagnosis:Inguinal hernia without obstruction or gangrene, recurrence not specified, unspecified laterality [K40.90] Order(s):SURGICAL REQUEST - ELECTIVE (04/2020) [[id number]] Orde r #: [id number]: 1 PRE-PROCEDURE AND PRE-OPERATIVE COVID [SQPOCOVD] Order #: [id number] FUTURE Prescriptions as of 05/03/2020 Sig: TAMSULOSIN 0.4 MG CAPSULE Take 1 capsule by mouth daily* DUTASTERIDE 0.5 MG CAPSULE Take 1 capsule by mouth once * CARBIDOPA 25 MG-LEVODOPA 100 * Take 2 tablets by mouth four * ROPINIROLE 3 MG TABLET Take 1 tablet by mouth three * POLYETHYLENE GLYCOL 3350 17 G* Take 17 grams daily as needed * MULTIVITAMIN TABLET Take 1 tablet by mouth once d* SENNOSIDES 8.6 MG TABLET Take 1 tablet by mouth once d* * ASPIRIN 81 MG TABLET,DELAYED * Take one(1) tablet daily. Problem List As Of Date 05/03/2020 Noted Resolved PARALYSIS AGITANS [G20] 10/16/2008 More... Thoracic or lumbosacral neuritis or radiculitis*03/03/2013 Special screening for malignant neoplasms, colo*01/29/2015 0 01/29/2015 Chronic constipation [K59.09] 10/06/2019 More... Encounter Status:Closed by REBECCA DA SILVA on 05/25/20 progress on 2020-04 PROGRESS HNO ID: [id number] Normal 04-30-2020 [facility] Author: Rafa Valdivia [place] ([id number]) Service: ? Author Type: Physician Type: Progress Notes Filed: 05/02/2020 9:17 AM Note Text: HISTORY AND PHYSICAL Justin Thurman 1950 REFERRING PHYSICIAN: Catalino Posada MD CHIEF COMPLAINT: Consult (Hernia consult ) HPI: Justin is a 69 year old male who initially presented i n September of this year with a complaint of a bulge without any true disco mfort in his right inguinal region. The patient notes a history of both b enign prostatic hypertrophy with voiding difficulties and chronic constipation. He notes that his hernia while asymptomatic is growing over time. He presented to [facility] for a flare of his P arkinson's symptoms and underwent a CT scan at that time which demonstr ated a right inguinal hernia with a loop of small bowel contained within the hernia. The patient had a previous open bilateral inguinal hernia re pair in the late . He understands no mesh was placed in either groin during that repair. The patient previously noted no symptoms of bowel obstructio n and denies nausea or vomiting. The patient smokes a pipe regularly which she is willing to try to quit prior to surgery. He also was just started on smooth muscle relaxers for chronic constipation and Flomax for his BPH issues. The patient was seen by his primary care physician who felt the patient has a hernia. Justin was referred for evaluation and treatm ent. The patient is being seen by me today at the request of Dr. Catalino Posada MD for my opinion and advice regarding a right i nguinal hernia with the above issues. He returns now noting that he is smoking his pipe twice a da y but noting more discomfort in his inguinal area. He presented to the ER 2 weeks previously due to increasing pain in the area. He is urinati ng better without straining and his constipation issues are under cont rol PAST MEDICAL HISTORY Diagnosis Date - Paralysis agitans (HCC) - Parkinson disease (HCC) PAST SURGICAL HISTORY Procedure Laterality Date - COLONOSCOP W/ OR W/O [facility] SPEC 01/29/15 Colonoscopy - COLONOSCOP W/ OR W/O [facility] SPEC 02/18/2018 Colonoscopy - REPAIR ING HERNIA,5+Y/O,REDUCIBL Hernia repair, inguinal, times 2 Current Outpatient Medications Medication Sig - tamsulosin ER (FLOMAX) 0.4 mg Take 1 capsule by mouth milad y at bedtime. - dutasteride (AVODART) 0.5 mg capsule Take 1 capsule by sander th once daily. - carbidopa-levodopa (SINEMET 25-100) 25-100 mg per tablet T liza 2 tablets by mouth four times daily. - rOPINIRole Hydrochloride (REQUIP) 3 mg tablet Take 1 table t by mouth three times daily. - polyethylene glycol 3350 (MIRALAX) 17 gram/dose powder Joseph e 17 grams daily as needed for constipation - multivitamin tablet Take 1 tablet by mouth once daily. - senna (SENNA) 8.6 mg tab Take 1 tablet by mouth once daily as needed. - ASPIRIN 81 MG TAB, DELAYED RELEASE Take one(1) tablet milad y. No current facility-administered medications for this visit. ALLERGIES: Penicillins PERSONAL HISTORY: Social History Tobacco Use - Smoking status: Current Every Day Smoker Types: Pipe - Smokeless tobacco: Never Used - Tobacco comment: Pipe Substance Use Topics - Alcohol use: No Frequency: Monthly or less Binge frequency: Never - Drug use: No FAMILY HISTORY: History reviewed. No pertinent family histor y. REVIEW OF SYMPTOMS: The review of systems data was entered by the nurse and revi ewed by me There are no exam notes on file for this visit. PHYSICAL EXAMINATION: General: The patient is 69 year old male, well nourished, we ll hydrated in no acute distress. The patient is oriented to time, place , and person. VITALS: Blood pressure 112/80, pulse 83, temperature 36.7 ?C (98.1 ?F), height 179.1 cm (5' 10.5), weight 90.4 kg (199 lb 3.2 oz), SpO2 98 %. Body mass index is 28.18 kg/m?. HEENT: Normal cephalic, ataumatic, pupils are equally round, sclera are anicteric, mucous membranes are moist, oropharynx is clear. Neck has no masses, asymmetry or lymphadenopathy. Thyroid is unremarkabl e. Respiratory: Clear to auscultation and percussion. Normal re spiratory excursion and pattern. Cardiac: Examination is regular rate and rhythm. Abdominal exam: Soft, nontender, with no palpable masses. No hepatosplenomegaly. A moderate reducible right inguinal benito ia, no left inguinal., A small umbilical hernias is noted Rectal exam: exam deferred Extremities: no clubbing, cyanosis or edema. No adenopathy. Other: LABORATORY VALUES: As Noted RADIOLOGIC STUDIES: As Noted Assessment IMPRESSION: Recurrent right inguinal hernia, umbilical herni a PLAN: My plan is to perform a laparoscopic right inguinal he rnia repair, and laparoscopic ventral hernia repair. The planned surgical procedure was discussed extensively with the patient. The risks, benef its, anticipated outcomes and [facility] surgery has a chance of re currence and/or chronic post operative pain. My staff has also explai sixto the procedure in understandable terms and the patient was given the option to take printed material concerning the planned procedure. The patient had the opportunity to ask questions concerning the planned proc edure. The patient freely consents to the planned procedure. All tobacco/nicotine use needs to be completely stopped at [facility] 4 weeks prior to surgery and not used in any form for 8 weeks follow ing surgery due to nicotine's prevention of appropriate wound healing Th e patient states he will stop as of yesterday. Anticipated Surgical Procedure/ CPT Code: laparoscopic right inguinal hernia repair with mesh - 26442-393 Anticipated Anesthetic: General Patient weight: Blood pressure 112/80, pulse 83, temperature 36.7 ?C (98.1 ?F), height 179.1 cm (5' 10.5), weight 90.4 kg (199 l b 3.2 oz), SpO2 98 %. BMI: Body mass index is 28.18 kg/m?. Planned antibiotic: clindamycin 900mg IVPB stone crusher operator to OR SCDs needed - Yes Furniture Delivery Driver Needed - Yes My findings have been communicated to Dr. Catalino Posada MD via shared medical record. This note will be forwarded to Dr. Maria Esther Posada MD. Diagnoses: (K43.9) Hernia of abdominal wall (R10.84) Generalized abdominal pain Anticipated Surgical Procedure/ CPT Code: laparoscopic ingui nal hernia repair with mesh, recurrent - 56140-505 laparoscopic ventral hernia repair - 42553-209 Anticipated Anesthetic: General Patient weight: Blood pressure 112/80, pulse 83, temperature 36.7 ?C (98.1 ?F), height 179.1 cm (5' 10.5), weight 90.4 kg (199 l b 3.2 oz), SpO2 98 %. BMI: Body mass index is 28.18 kg/m?. Planned antibiotic: clindamycin 900mg IVPB stone crusher operator to OR SCDs needed - Yes Furniture Delivery Driver Needed - Yes Return to Clinic: The patient is instructed to follow-up wit h me one week post operatively. Rafa Valdivia MD REVIEW OF SYSTEMS: General: The patient NOTES fatigue, NOTES weight loss, denie s weight gain, denies feeling hot, and denies feelings of cold . Eyes: The patient denies glaucoma, denies eye injury/surgery , wears glasses or contacts. Ear/Nose/Throat: The patient denies allergies, denies hayfev er, denies ear infections, and denies bloody noses. Cardiovascular: The patient denies chest pain, denies heart disease, denies high blood pressure,denies cardiac stent, denies prio r heart attack, denies irregular heart beat, denies high cholesterol , denies poor circulation, denies heart failure, other cardiac issues, den ies claudication, denies cold feet, denies peripheral arterial s tent. Respiratory: The patient denies tuberculosis, denies pneumon ia, denies frequent cough, denies pulmonary embolism, denies shi rtness of breath, and denies coughing up blood. Gastrointestinal: The patient denies difficulty swallowing, denies acid reflux, denies ulcers, denies vomiting, denies jaundice /hepatitis, denies gallbladder problems, denies black or tarry stools, d enies hemorrhoids, denies bleeding from rectum, denies diverticuli tis, NOTES constipation, denies diarrhea, denies loss of stool control, and NOTES hernias. Kidney/Bladder: The patient denies kidney stones, denies uri ne infections, and denies bloody urine. Skin: The patient denies a history of skin cancer, denies bleeding/changing moles, and denies a history of skin rash. Neurologic: The patient denies a history of epilepsy/convuls ions, denies headaches, denies head/spinal injuries, and denies st roke/TIA. Psychiatric: The patient denies psychiatric medications, den ies depression, and denies voices, denies substance abuse. Endocrine: The patient denies thyroid disorders, denies diab etes, and denies hormonal problems. Hematologic: The patient denies a history of bruising, denie s bleeding, and denies anemia, denies blood clots. Infections: The patient denies a history of measles and mump s, denies rheumatic fever, and denies sexually transmitted dise ases. Musculoskeletal: The patient denies back pain/injury, denies back problems, denies sciatica, denies knee/foot trouble, denies arthritis, or denies gout. When was patient's last Mammogram screening? N/A Last Colonoscopy: 02/2018 Tyesha Cobb LPN cnov on 2020-04-30 CNOV Office Visit (GENSWS) Normal 04-30-20 [facility] THURMANJUSTIN BARTH ([id number]) 1950 [facility] Date Time Provider Department ([id number]) 04/30/20 10:20 AM RAFA VALDIVIA During your visit today, we recorded the following informati on about you: Temperature Pulse Blood pressure Weight 98.1 degrees 83/minute 112/80 90.4 kg Height 1.791 m Rafa Valdivia MD 05/02/2020 9:17 AM Signed HISTORY AND PHYSICAL Justin aSn Olman 1950 REFERRING PHYSICIAN: Catalino Posada MD CHIEF COMPLAINT: Consult (Hernia consult ) HPI: Justin is a 69 year old male who initially presented in September of this year with a complaint of a bulge without any true discomfort in his right inguinal region. The patient notes a history of both benign prostatic hypertrophy with voiding difficulties and chroni c constipation. He notes that his hernia while asymptomatic is growing over time. He pre sented to [facility] for a flare of his Parkinson' s symptoms and underwent a CT scan at that time which demonstrated a right inguinal benito ia with a loop of small bowel contained within the hernia. The patient had a previous open bilateral inguinal her astrid repair in the late . He understands no mesh was placed in either groin durin g that repair. The patient previously noted no symptoms of bowel obstruction and denies nausea or vomiting. The patient smokes a pipe regularly which she is willing to try to quit prior to surgery. He also was just started on smooth muscle relaxe rs for chronic constipation and Flomax for his BPH issues. The patient was seen by his primary care physici an who felt the patient has a hernia. Justin was referred for evaluation and treatment. The patient is being seen by me today at the request of Dr. Catalino Posada MD for my opinion and advice regarding a right i nguinal hernia with the above issues. He returns now noting that he is smoking his pip e twice a day but noting more discomfort in his inguinal area. He pres ented to the ER 2 weeks previously due to increasing pain in the area. He is urinating better without straining and his constipation issues are under control PAST MEDICAL HISTORY Diagnosis Date - Paralysis agitans (HCC) - Parkinson disease (HCC) PAST SURGICAL HISTORY Procedure Laterality Date - COLONOSCOP W/ OR W/O [facility] SPEC 01/29/15 Colonoscopy - COLONOSCOP W/ OR W/O [facility] SPEC 02/18/2018 Colonoscopy - REPAIR ING HERNIA,5+Y/O,REDUCIBL Hernia repair, inguinal, times 2 Current Outpatient Medications Medication Sig - tamsulosin ER (FLOMAX) 0.4 mg Take 1 capsule by mouth milad y at bedtime. - dutasteride (AVODART) 0.5 mg capsule Take 1 capsule by once daily. - carbidopa-levodopa (SINEMET 25-100) 25-100 mg per ta blet Take 2 tablets by mouth four times daily. - rOPINIRole Hydrochloride (REQUIP) 3 mg tablet Take 1 tablet by mouth three times daily. - polyethylene glycol 3350 ( MIRALAX) 17 gram/dose powder Take 17 grams daily as needed for constipation - multivitamin tablet Take 1 tablet by mouth once daily. - senna (SENNA) 8.6 mg tab Take 1 tablet by mouth once daily as needed. - ASPIRIN 81 MG TAB, DELAYED RELEASE Take one(1) tablet milad y. No current facility-administered medications for this visit. ALLERGIES: Penicillins PERSONAL HISTORY: Social History Tobacco Use - Smoking status: Current Every Day Smoker Types: Pipe - Smokeless tobacco: Never Used - Tobacco comment: Pipe Substance Use Topics - Alcohol use: No Frequency: Monthly or less Binge frequency: Never - Drug use: No FAMILY HISTORY: History reviewed. No pertinent family histor y. REVIEW OF SYMPTOMS: The review of systems data was entered by the nurse and revi ewed by me There are no exam notes on file for this visit. PHYSICAL EXAMINATION: General: The patient is 69 year old male, well n ourished, well hydrated in no acute distress. The patient is oriented to time, place, and person. VITALS: Blood pressure 112/80, pulse 83, temperature 36.7 ?C (98.1 ?F), height 179.1 cm (5' 10.5), weight 90.4 kg (199 lb 3.2 oz), SpO2 98 %. Body mass index is 28.18 kg/m?. HEENT: Normal cephalic, ataumatic, pupils are equally round, sclera are anicteric, mucous membranes are moist, oropharynx is clear. Neck has no masses, asymmetry or lymphadenopathy. Thyroid is unremarkabl e. Respiratory: Clear to auscultation and percussion. Normal re spiratory excursion and pattern. Cardiac: Examination is regular rate and rhythm. Abdominal exam: Soft, nontender, with no palpable masses. No hepatosplenomegaly. A moderate reducible right inguinal benito ia, no left inguinal., A small umbilical hernias is noted Rectal exam: exam deferred Extremities: no clubbing, cyanosis or edema. No adenopathy. Other: LABORATORY VALUES: As Noted RADIOLOGIC STUDIES: As Noted Assessment IMPRESSION: Recurrent right inguinal hernia, umbilical herni a PLAN: My plan is to perform a laparoscopic right ingui nal hernia repair, and laparoscopic ventral hernia repair. The planned surgical pro cedure was discussed extensively with the patient. The risks, benefits, anticipated outcomes and possible complications were mentioned. Chapito barakat that all hernia repair surgery has a chance of recurrence and/or chronic post operative pain. My staff has also explained the procedure in understandable terms and the patient was given the opti on to take printed material concerning the planned procedure. The patient had the opportunity to as k questions concerning the planned procedure. The patient freely c onsents to the planned procedure. All tobacco/nicotine use needs to be com pletely stopped at least 4 weeks prior to surgery and not used in any form for 8 weeks following lantigua rgery due to nicotine's prevention of appropriate wound heali ng The patient states he will stop as of yesterday. Anticipated Surgical Procedure/ CPT Code: laparoscopic right inguinal hernia repair with mesh - 93019-902 Anticipated Anesthetic: General Patient weight: Blood pressure 112/80, pulse 83, temperature 36.7 ?C (98.1 ?F), height 179.1 cm (5' 10.5), weight 90.4 kg (199 lb 3. 2 oz), SpO2 98 %. BMI: Body mass index is 28.18 kg/m?. Planned antibiotic: clindamycin 900mg IVPB stone crusher operator to OR SCDs needed - Yes Furniture Delivery Driver Needed - Yes My findings have been communicated to Dr. Catalino Posada MD via shared medical record. This note will be forwarded to Dr. Catalino kunz MD. Diagnoses: (K43.9) Hernia of abdominal wall (R10.84) Generalized abdominal pain Anticipated Surgical Procedure/ CPT Code: laparo scopic inguinal hernia repair with mesh, recurrent - 07393-985 laparoscopic ventral hernia repair - 26089-937 Anticipated Anesthetic: General Patient weight: Blood pressure 112/80, pulse 83, temperature 36.7 ?C (98.1 ?F), height 179.1 cm (5' 10.5), weight 90.4 kg (199 lb 3. 2 oz), SpO2 98 %. BMI: Body mass index is 28.18 kg/m?. Planned antibiotic: clindamycin 900mg IVPB stone crusher operator to OR SCDs needed - Yes Furniture Delivery Driver Needed - Yes Return to Clinic: The patient is instruc ilsa to follow-up with me one week post operatively. Rafa Valdivia MD REVIEW OF SYSTEMS: General: The patient NOTES fatigue, NOTES weight loss, denie s weight gain, denies feeling hot, and denies feelings of cold. Eyes: The patient denies glaucoma, denies eye injury/surgery , wears glasses or contacts. Ear/Nose/Throat: The patient denies allergies, denies hayfev er, denies ear infections, and denies bloody noses. Cardiovascular: The patient denies chest pain, denies heart disease, denies high blood pressure,denies cardiac stent, denies pr ior heart attack, denies irregular heart beat, denies high cholesterol, denies poor circulation, denies heart failure, other cardiac issues, denies cla udication, denies cold feet, denies peripheral arterial stent. Respiratory: The patient denies tuberculosis, denies pneumon ia, denies frequent cough, denies pulmonary embolism, denies shortness of breath, and denies coughing up blood. Gastrointestinal: The patient denies difficulty swallowing, denies acid reflux, denies ulcers, denies vomiting, denies jaundice/hepa titis, denies gallbladder problems, denies black or ta rry stools, denies hemorrhoids, denies bleeding from rectum, denies diverticulitis, NOTES constipat ion, denies diarrhea, denies loss of stool control, and NOTES hernias. Kidney/Bladder: The patient denies kidney stones, denies uri ne infections, and denies bloody urine. Skin: The patient denies a history of skin cancer, denies bleeding/changing moles, and denies a history of skin rash. Neurologic: The patient denies a history of epilepsy/convuls ions, denies headaches, denies head/spinal injuries, and denies stroke/TI A. Psychiatric: The patient denies psychiatric medications, den ies depression, and denies voices, denies substance abuse. Endocrine: The patient denies thyroid disorders, denies diab etes, and denies hormonal problems. Hematologic: The patient denies a history of bruising, denie s bleeding, and denies anemia, denies blood clots. Infections: The patient denies a history of measles and mump s, denies rheumatic fever, and denies sexually transmitted diseases. Musculoskeletal: The patient denies back pain/injury, denies back problems, denies sciatica, denies knee/foot trouble, denies arthritis, or denies gout. When was patient's last Mammogram screening? N/A Last Colonoscopy: 02/2018 Tyesha Cobb LPN Referring Provider: CATALINO POSADA [[id number]] Allergies As of Date: 04/30/2020 Noted Allergy Reaction PENICILLINS 09/18/2008 Date Reviewed: 04/30/2020 Reviewed by: Donny Covarrubias LPN - Fully Assessed Reason for Visit: Established Patient [175] Cmt: hernia Visit Diagnoses:Hernia of abdominal wall [K43.9] Generalized abdominal pain [R10.84] Order(s):CONSULT TO GENERAL SURGERY [9011] Order #: [id number] 59Qty: 1 Prescriptions as of 04/30/2020 Sig: TAMSULOSIN 0.4 MG CAPSULE Take 1 capsule by mouth daily* DUTASTERIDE 0.5 MG CAPSULE Take 1 capsule by mouth once * CARBIDOPA 25 MG-LEVODOPA 100 * Take 2 tablets by mouth four * ROPINIROLE 3 MG TABLET Take 1 tablet by mouth three * POLYETHYLENE GLYCOL 3350 17 G* Take 17 grams daily as needed * MULTIVITAMIN TABLET Take 1 tablet by mouth once d* SENNOSIDES 8.6 MG TABLET Take 1 tablet by mouth once d* * ASPIRIN 81 MG TABLET,DELAYED * Take one(1) tablet daily. 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 Thoracic or lumbosacral neuritis or radiculitis*03/03/2013 Special screening for malignant neoplasms, colo*01/29/2015 0 01/29/2015 Chronic constipation [K59.09] 10/06/2019 Encounter Status:Closed by RAFA VALDIVIA [facility] Telephone (FAMPWS) Normal 04-28-2020 [place] JUSTIN Maya ([id number]) 1950 [facility] Date Time Provider Department ([id number]) 04/28/20 CATALINO POSADA During your visit today, we recorded the following informati on about you: Hilda Mays RN 04/28/2020 9:15 AM Signed Pt's daughter called, verified pt by name and bi rthdate. Pt's daughter wanted to let PCP know pt is seeing Dr. Valdivia on 04-30-2020 for a possible hernia Hilda Posada MD 04/28/2020 12:25 PM Signed Noted Catalino Posada MD Allergies As of Date: 04/28/2020 Noted Allergy Reaction PENICILLINS 09/18/2008 Date Reviewed: 01/05/2020 Reviewed by: Brandee Finn Ma - Fully Assessed Reason for Visit: FYI-No Action Needed [265] Reason For Visit History Recorded Prescriptions as of 04/28/2020 Sig: TAMSULOSIN 0.4 MG CAPSULE Take 1 capsule by mouth daily* DUTASTERIDE 0.5 MG CAPSULE Take 1 capsule by mouth once * CARBIDOPA 25 MG-LEVODOPA 100 * Take 2 tablets by mouth four * ROPINIROLE 3 MG TABLET Take 1 tablet by mouth three * POLYETHYLENE GLYCOL 3350 17 G* Take 17 grams daily as needed * MULTIVITAMIN TABLET Take 1 tablet by mouth once d* SENNOSIDES 8.6 MG TABLET Take 1 tablet by mouth once d* * ASPIRIN 81 MG TABLET,DELAYED * Take one(1) tablet daily. 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 Pt's reports pt felt jittery and high strung. report pt does not want to t liza Avodart anymore and is asking if thi s is ok or if there is something else pt could try. Leatha Posada MD 04/20/2020 3:15 PM Signed OK to stop avodart; I would suggest going off this and seein g how he does first; we can replace it with something else if needed. MD Mary Lyman MA 04/20/2020 3:25 PM Signed Spoke with Mariya and notified her of PCP's message. S he verbalized understanding. Mary Vieira MA Allergies As of Date: 04/20/2020 Noted Allergy Reaction PENICILLINS 09/18/2008 Date Reviewed: 01/05/2020 Reviewed by: Brandee Finn Ma - Fully Assessed Reason for Visit: Medication Problem [65] Prescriptions as of 04/20/2020 Sig: TAMSULOSIN 0.4 MG CAPSULE Take 1 capsule by mouth daily* DUTASTERIDE 0.5 MG CAPSULE Take 1 capsule by mouth once * CARBIDOPA 25 MG-LEVODOPA 100 * Take 2 tablets by mouth four * ROPINIROLE 3 MG TABLET Take 1 tablet by mouth three * POLYETHYLENE GLYCOL 3350 17 G* Take 17 grams daily as needed * MULTIVITAMIN TABLET Take 1 tablet by mouth once d* SENNOSIDES 8.6 MG TABLET Take 1 tablet by mouth once d* * ASPIRIN 81 MG TABLET,DELAYED * Take one(1) tablet daily. 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 Thoracic or lumbosacral neuritis or radiculitis*03/03/2013 Special screening for malignant neoplasms, colo*01/29/2015 0 01/29/2015 Chronic constipation [K59.09] 10/06/2019 Encounter Status:Closed by MARY VIEIRA MA on 04/20/20 obsolete on 2020-03 OBSOLETE Refill (FAMPWS) Normal 03-29-2020 [place] car[facility] JUSTIN THURMAN ([id number]) 1950 [facility] Time Provider Department ([id number]) 03/29/20 CATALINO POSADA FAMPWS During your visit today, we recorded the following informati on about you: Brandee Finn Ma 03/29/2020 4:25 PM Signed Last office visit: 01/05/2020 F/u scheduled: no follow up Brandee Finn Ma Allergies As of Date: 03/29/2020 Noted Allergy Reaction PENICILLINS 09/18/2008 Date Reviewed: 01/05/2020 Reviewed by: Brandee Finn Ma - Fully Assessed Reason for Visit: Refill Request [94] Visit Diagnosis:Benign prostatic hyperplasia with urinary frequency [N40.1, R35.0] Order(s):tamsulosin ER (FLOMAX) 0.4 mgTake 1 capsule by mout h daily at bedtime.Disp: 90 capsuleRfl: 1 Prescriptions as of 03/29/2020 Sig: TAMSULOSIN 0.4 MG CAPSULE Take 1 capsule by mouth daily* DUTASTERIDE 0.5 MG CAPSULE Take 1 capsule by mouth once * CARBIDOPA 25 MG-LEVODOPA 100 * Take 2 tablets by mouth four * ROPINIROLE 3 MG TABLET Take 1 tablet by mouth three * POLYETHYLENE GLYCOL 3350 17 G* Take 17 grams daily as needed * MULTIVITAMIN TABLET Take 1 tablet by mouth once d* SENNOSIDES 8.6 MG TABLET Take 1 tablet by mouth once d* * ASPIRIN 81 MG TABLET,DELAYED * Take one(1) tablet daily. 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 Medications Discontinued During This Encounter tamsulosin ER (FLOMAX) 0.4 mg cap 90 c* 1 10/06/2019 0 Route: ORAL Sig: Take 1 capsule by mouth daily at bedtime. Disc: Reason for discontinue is not on file. Encounter Status:Closed by CHET SALVADOR MD on 03/29/20 cnpn on 2020-03-[facility] Normal 03-01-2020 [place] [facility] JUSTIN THURMAN ([id number]) 1950 [facility] Date Time Provider Department ([id number]) 03/01/20 [facility] During your visit today, we recorded the following informati on about you: Leatha Jara LPN 03/01/2020 10:35 AM Signed Daughter calls to report that pt is getting weaker. Daughter reports if pt walks to his garage he can hardly make i t and has told her when talking on the phone that he needs to hang up because it is too hard to hold the phone anymore. Daughter is concerned about increased weakness. Pt does see a neurologist for Parkinson's. Pt does not have an upcomin g appt and daughter is wanting to know if he should so dr can see how pt is doing. Please review and advise. Leatha Posada MD 03/01/2020 11:32 AM Signed I would recommend follow up with Neurologist for his increas ing weakness. MD Brandee Lyman Ma 03/01/2020 12:18 PM Signed Ximena notified via identified VM. Brandee Cedeno, RN, RN 03/16/2020 11:58 AM Signed Pt calls, stating he has appt with neuro but it is scheduled far out. Advised to contact office to see about getting a closer appt. Pt melissa balizes understanding. Allergies As of Date: 03/01/2020 Noted Allergy Reaction PENICILLINS 09/18/2008 Date Reviewed: 01/05/2020 Reviewed by: Brandee Finn Ma - Fully Assessed Reason for Visit: Weakness [1606] Prescriptions as of 03/01/2020 Sig: DUTASTERIDE 0.5 MG CAPSULE Take 1 capsule by mouth once * CARBIDOPA 25 MG-LEVODOPA 100 * Take 2 tablets by mouth four * ROPINIROLE 3 MG TABLET Take 1 tablet by mouth three * POLYETHYLENE GLYCOL 3350 17 G* Take 17 grams daily as needed * TAMSULOSIN 0.4 MG CAPSULE Take 1 capsule by mouth daily* MULTIVITAMIN TABLET Take 1 tablet by mouth once d* SENNOSIDES 8.6 MG TABLET Take 1 tablet by mouth once d* * ASPIRIN 81 MG TABLET,DELAYED * Take one(1) tablet daily. 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 Pt states he has issues getting around falling lately. Pt wo uld like to get a wheelchair. If approved, pt would like order sent to [facility]. Please advis e Hilda Posada MD 01/15/2020 5:13 PM Signed Rx for wheelchair printed MD Mary Lyman MA 01/16/2020 1:37 PM Signed Rx faxed to [facility] at [phone]. Mary Vieira MA Allergies As of Date: 01/14/2020 Noted Allergy Reaction PENICILLINS 09/18/2008 Date Reviewed: 01/05/2020 Reviewed by: Brandee Finn Ma - Fully Assessed Reason for Visit: pt wants wheelchair order [Other] Primary Visit Diagnosis:Paralysis agitans (HCC) [G20] Other Visit Diagnosis:Frequent falls [R29.6] Order(s):STANDARD WHEELCHAIR [[id number]] Order #: [id number] Prescriptions as of 01/14/2020 Sig: DUTASTERIDE 0.5 MG CAPSULE Take 1 capsule by mouth once * CARBIDOPA 25 MG-LEVODOPA 100 * Take 2 tablets by mouth four * ROPINIROLE 3 MG TABLET Take 1 tablet by mouth three * POLYETHYLENE GLYCOL 3350 17 G* Take 17 grams daily as needed * TAMSULOSIN 0.4 MG CAPSULE Take 1 capsule by mouth daily* MULTIVITAMIN TABLET Take 1 tablet by mouth once d* SENNOSIDES 8.6 MG TABLET Take 1 tablet by mouth once d* * ASPIRIN 81 MG TABLET,DELAYED * Take one(1) tablet daily. 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 Thoracic or lumbosacral neuritis or radiculitis*03/03/2013 Special screening for malignant neoplasms, colo*01/29/2015 0 01/29/2015 Chronic constipation [K59.09] 10/06/2019 Encounter Status:Closed by MARY VIEIRA MA on 01/16/20 cnpn on 2020-01-13 [facility]NP[facility] Telephone (THU) Normal 01-13-2020 [place] [facility] OLMANJUSTIN M ([id number]) 1950 [facility] Date Time Provider Department ([id number]) 01/13/20 RAFA VALDIVIA During your visit today, we recorded the following informati on about you: Rafa Valdivia MD 01/13/2020 10:13 AM Signed Called patient for follow-up on his benito ia. He does not wish to have repair of his hernia at this time as he states it is not bothering him. He is instructed to return if he has any difficulties with the pain worsening . If he has symptoms of bowel obstruction we discuss ed those and recommended presenting to the emergency department if that were the case. Allergies As of Date: 01/13/2020 Noted Allergy Reaction PENICILLINS 09/18/2008 Date Reviewed: 01/05/2020 Reviewed by: Brandee Finn Ma - Fully Assessed Reason for Visit: Recheck [92] Prescriptions as of 01/13/2020 Sig: DUTASTERIDE 0.5 MG CAPSULE Take 1 capsule by mouth once * CARBIDOPA 25 MG-LEVODOPA 100 * Take 2 tablets by mouth four * ROPINIROLE 3 MG TABLET Take 1 tablet by mouth three * POLYETHYLENE GLYCOL 3350 17 G* Take 17 grams daily as needed * TAMSULOSIN 0.4 MG CAPSULE Take 1 capsule by mouth daily* MULTIVITAMIN TABLET Take 1 tablet by mouth once d* SENNOSIDES 8.6 MG TABLET Take 1 tablet by mouth once d* * ASPIRIN 81 MG TABLET,DELAYED * Take one(1) tablet daily. 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 Author Type: Physician Type: Progress Notes Filed: 01/05/2020 11:33 AM Note Text: This Team Access Model visit is a phone encounter. It requir ed patient-provider interaction for the medical decision making as documented below. Chief Complaint Patient presents with: F/U 3 Month: urinary frequency HPI: This Team Access Model visit is a phone encounter. It r equired patient-provider interaction for the medical decision making as documented below. Patient was offered a virtual/telemedicine appointmen t in lieu of an office visit due to recommendations to reduce patient exp osure to COVID-19. Patient is aware of limitations of performing the visit without a face to face visit in the office setting and agrees. Smokes a pipe, would like to quit. He has used OTC nicotine gum. Has never use the patches or any prescription medication. Urine Frequency: using Flomax 0.4 mg daily at bedtime. The f grayson is helping some but not as much as he hoped it would. Does get up about 4-5 times per night and several times through the day. Seems to go more at night. Limiting fluid intake prior to bedtime. No pain with urination, no problems starting to urinate. He does have weakened steam. F ather had urinary issues. Past medical history, appointments, medications, allergies r eviewed. Previous Medical History PAST MEDICAL HISTORY Diagnosis Date - Paralysis agitans (HCC) - Parkinson disease (HCC) Previous Surgical History PAST SURGICAL HISTORY Procedure Laterality Date - COLONOSCOP W/ OR W/O [facility] SPEC 01/29/15 Colonoscopy - COLONOSCOP W/ OR W/O [facility] SPEC 02/18/2018 Colonoscopy - REPAIR ING HERNIA,5+Y/O,REDUCIBL Hernia repair, inguinal, times 2 Family History No family history on file. Patient Allergies ALLERGIES Allergen Reactions - Penicillins Current Medications Current Outpatient Medications on File Prior to Visit Medication Sig - carbidopa-levodopa (SINEMET 25-100) 25-100 mg per tablet T liza 2 tablets by mouth four times daily. - rOPINIRole Hydrochloride (REQUIP) 3 mg tablet Take 1 table t by mouth three times daily. - polyethylene glycol 3350 (MIRALAX) 17 gram/dose powder Joseph e 17 grams daily as needed for constipation - tamsulosin ER (FLOMAX) 0.4 mg cap Take 1 capsule by mouth daily at bedtime. - multivitamin tablet Take 1 tablet by mouth once daily. - senna (SENNA) 8.6 mg tab Take 1 tablet by mouth once daily as needed. - ASPIRIN 81 MG TAB, DELAYED RELEASE Take one(1) tablet milad y. No current facility-administered medications on file prior t o visit. Social History Social History Tobacco Use - Smoking status: Current Every Day Smoker Types: Pipe - Smokeless tobacco: Never Used - Tobacco comment: Pipe Substance Use Topics - Alcohol use: No Frequency: Monthly or less Binge frequency: Never - Drug use: No EXAM: There were no vitals taken for this visit. Health Maintenance List DTAP,TDAP,TD(1 - Tdap) due on 1959 HEPATITIS C SCREENING due on 1992 SHINGRIX VACCINE(1 of 2) due on 1998 ADVANCE DIRECTIVE DISCUSSION due on 2013 LIPID SCREEN due on 04/29/2020 COLORECTAL CANCER SCREENING,SEE MODIFIER due on 02/18/2021 DIABETES SCREEN due on 06/24/2022 ADULT PREVNAR-13 Completed INFLUENZA Completed PNEUMOVAX AGE 65 AND OVER WITH 5YR LOOKBACK Completed Data reviewed None ASSESSMENT/PLAN: 1. Paralysis agitans (HCC) - ICD9: 332.0, ICD10: G20 (primar y diagnosis) Follow with Neuro 2. Benign prostatic hyperplasia with urinary frequency - ICD 9: 600.01, 788.41, ICD10: N40.1, R35.0 chronic - Begin treatment with Avodart; add to Flomax - DUTASTERIDE 0.5 MG CAPSULE Follow up in 6 months 5-10 minutes of time spent on phone call I agree with the Chief Complaint, ROS, and Past Histories in dependently gathered by the clinical senior office support assistant sosa and the remaining scr ibed note accurately describes my personal service to the patient. Catalino Posada MD The documentation for this note was completed by Brandee haskins Ma acting as scribe for Catalino Posada MD. January 05, 2020 9:11 AM. Brandee Finn Ma cnpn on 2019-12-25 CNPN Telephone (FAMPWS) Normal 12-25-2019 [place] [facility] JUSTIN THURMAN ([id number]) 1950 M [place] Date Time Provider Department ([id number]) 12/25/19 CATALINO POSADA During your visit today, we recorded the following informati on about you: Brandee Finn Ma 12/25/2019 1:58 PM Signed Patient has upcomming appt a nd looking to see if they would like to do same day and time just a virtual vist. Given the current coronavirus concerns in the and specifically [facility], we currently are most concerned with provid ing you access to our [facility], but we also wish t o do it in the safest manner possible. We are currently encouraging our patients, particularl y those who are at the highest risk of coronavirus infection-el erick, heart, lung or immune problems, to stay at home and not come into the of fice if a face to face appointment can be avoided in the clinic setting at least for the next sever al weeks. At this time we would like t o offer to provide care through our Virtual Visits. If patient does please confirm email address and send back t o me so I can schedule appropriately. Vesta Deysi 12/25/2019 4:27 PM Signed Patient's returned call. Patient opted for phone call a ppointment. Original appointment cancelled. Phone appointmen t scheduled same day and time as previous. Allergies As of Date: 12/25/2019 Noted Allergy Reaction PENICILLINS 09/18/2008 Date Reviewed: 11/28/2019 Reviewed by: Rafa Valdivia - Fully Assessed Reason for Visit: Appointment [186] Prescriptions as of 12/25/2019 Sig: CARBIDOPA 25 MG-LEVODOPA 100 * Take 2 tablets by mouth four * ROPINIROLE 3 MG TABLET Take 1 tablet by mouth three * POLYETHYLENE GLYCOL 3350 17 G* Take 17 grams daily as needed * TAMSULOSIN 0.4 MG CAPSULE Take 1 capsule by mouth daily* MULTIVITAMIN TABLET Take 1 tablet by mouth once d* SENNOSIDES 8.6 MG TABLET Take 1 tablet by mouth once d* * ASPIRIN 81 MG TABLET,DELAYED * Take one(1) tablet daily. 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 Author Type: Physician Type: Progress Notes Filed: 11/28/2019 10:09 AM Note Text: HISTORY AND PHYSICAL Justin Thurman 1950 REFERRING PHYSICIAN: Catalino Posada MD CHIEF COMPLAINT: Consult (Hernia consult ) HPI: Justin is a 69 year old male with a complaint of a bul ge without any true discomfort in his right inguinal region. The patient no kavon a history of both benign prostatic hypertrophy with voiding difficulti es and chronic constipation. He notes that his hernia while asymptomatic is growing over time. He presented to [facility] for a flare of his Parkinson's symptoms and underwent a CT scan at that time wh ich demonstrated a right inguinal hernia with a loop of small tray wel contained within the hernia. The patient had a previous open bilateral inguinal hernia re pair in the late . He understands no mesh was placed in either groin during that repair. The patient notes no symptoms of bowel obstruction and denie s nausea or vomiting. The patient smokes a pipe regularly which she is willing to try to quit prior to surgery. He also was just started on the relaxers c hronic constipation and Flomax for his BPH issues. The patient was seen by his primary care physician who felt the patient has a hernia. Justin was referred for evaluation and treatm ent. The patient is being seen by me today at the request of Dr. Catalino Posada MD for my opinion and advice regarding a right i nguinal hernia with the above issues. He returns now noting that he is smoking his pipe twice a da y but noting more discomfort in his inguinal area. PAST MEDICAL HISTORY Diagnosis Date - Paralysis agitans (HCC) - Parkinson disease (HCC) PAST SURGICAL HISTORY Procedure Laterality Date - COLONOSCOP W/ OR W/O [facility] SPEC 01/29/15 Colonoscopy - COLONOSCOP W/ OR W/O [facility] SPEC 02/18/2018 Colonoscopy - REPAIR ING HERNIA,5+Y/O,REDUCIBL Hernia repair, inguinal, times 2 Current Outpatient Medications Medication Sig - carbidopa-levodopa (SINEMET 25-100) 25-100 mg per tablet T liza 2 tablets by mouth four times daily. - rOPINIRole Hydrochloride (REQUIP) 3 mg tablet Take 1 table t by mouth three times daily. - polyethylene glycol 3350 (MIRALAX) 17 gram/dose powder Joseph e 17 grams daily as needed for constipation - tamsulosin ER (FLOMAX) 0.4 mg cap Take 1 capsule by mouth daily at bedtime. - multivitamin tablet Take 1 tablet by mouth once daily. - senna (SENNA) 8.6 mg tab Take 1 tablet by mouth once daily as needed. - ASPIRIN 81 MG TAB, DELAYED RELEASE Take one(1) tablet milad y. No current facility-administered medications for this visit. ALLERGIES: Penicillins PERSONAL HISTORY: Social History Tobacco Use - Smoking status: Current Every Day Smoker Types: Pipe - Smokeless tobacco: Never Used - Tobacco comment: Pipe Substance Use Topics - Alcohol use: No Frequency: Monthly or less Binge frequency: Never - Drug use: No FAMILY HISTORY: History reviewed. No pertinent family histor y. REVIEW OF SYMPTOMS: The review of systems data was entered by the nurse and revi ewed by me There are no exam notes on file for this visit. PHYSICAL EXAMINATION: General: The patient is 69 year old male, well nourished, we ll hydrated in no acute distress. The patient is oriented to time, place , and person. VITALS: Blood pressure 110/62, pulse 87, temperature 36.4 ?C (97.5 ?F), weight 93.4 kg (205 lb 12.8 oz), SpO2 96 %. Body mass index is 28.7 kg/m?. HEENT: Normal cephalic, ataumatic, pupils are equally round, sclera are anicteric, mucous membranes are moist, oropharynx is clear. Neck has no masses, asymmetry or lymphadenopathy. Thyroid is unremarkabl e. Respiratory: Clear to auscultation and percussion. Normal re spiratory excursion and pattern. Cardiac: Examination is regular rate and rhythm. Abdominal exam: Soft, nontender, with no palpable masses. No hepatosplenomegaly. A moderate reducible right inguinal benito ia, no left inguinal., A small umbilical hernias is noted Rectal exam: exam deferred Extremities: no clubbing, cyanosis or edema. No adenopathy. Other: LABORATORY VALUES: As Noted RADIOLOGIC STUDIES: As Noted Assessment IMPRESSION: Recurrent right inguinal hernia, umbilical herni a PLAN: My plan is to perform a laparoscopic right inguinal he rnia repair, and laparoscopic ventral hernia repair. The planned surgical procedure was discussed extensively with the patient. The risks, benef its, anticipated outcomes and [facility] all [facility] repair surgery has a chance of re currence and/or chronic post operative pain. My staff has also explai sixto the procedure in understandable terms and the patient was given the option to take printed material concerning the planned procedure. The patient had the opportunity to ask questions concerning the planned proc edure. The patient freely consents to the planned procedure. All tobacco/nicotine use needs to be completely stopped at [facility] 4 weeks prior to surgery and not used in any form for 8 weeks follow ing surgery due to nicotine's prevention of appropriate wound healing The patient also work on treatment for both his benign prost atic hypertrophy/urinary voiding issues and chronic constipation My findings have been communicated to Dr. Catalino Posada MD via shared medical record. This note will be forwarded to Dr. Maria Esther Posada MD. Diagnoses: (K40.91) Recurrent right inguinal hernia (primary encounter diagnosis) (K42.9) Umbilical hernia without obstruction and without lala grene Anticipated Surgical Procedure/ CPT Code: laparoscopic ingui nal hernia repair with mesh, recurrent - 26276-776 laparoscopic ventral hernia repair - 62081-203 Anticipated Anesthetic: General Patient weight: Blood pressure 110/62, pulse 87, temperature 36.4 ?C (97.5 ?F), weight 93.4 kg (205 lb 12.8 oz), SpO2 96 %. BMI: Body mass index is 28.7 kg/m?. Planned antibiotic: clindamycin 900mg IVPB stone crusher operator to OR SCDs needed - Yes Furniture Delivery Driver Needed - Yes Return to Clinic: The patient is instructed to follow-up wit h me one week post operatively. Rafa [facility] 2019-[facility]-28 CNPN Telephone (GENSWS) Normal 11-28-2019 [place] [facility] JUSTIN THURMAN ([id number]) 1950 [facility] Date Time Provider Department ([id number]) 11/28/19 RAFA VALDIVIA During your visit today, we recorded the following informati on about you: Rebecca Da Silva 11/28/2019 10:37 AM Signed 12-31-2019 Umbilical and inguinal hernia repair Crookmaria elena Da Silva Allergies As of Date: 11/28/2019 Noted Allergy Reaction PENICILLINS 09/18/2008 Date Reviewed: 11/28/2019 Reviewed by: Rafa Valdivia - Fully Assessed Reason for Visit: 12-31-2019 Umbilical and inguinal hernia repair Crook [Othe r] Prescriptions as of 11/28/2019 Sig: CARBIDOPA 25 MG-LEVODOPA 100 * Take 2 tablets by mouth four * ROPINIROLE 3 MG TABLET Take 1 tablet by mouth three * POLYETHYLENE GLYCOL 3350 17 G* Take 17 grams daily as needed * TAMSULOSIN 0.4 MG CAPSULE Take 1 capsule by mouth daily* MULTIVITAMIN TABLET Take 1 tablet by mouth once d* SENNOSIDES 8.6 MG TABLET Take 1 tablet by mouth once d* * ASPIRIN 81 MG TABLET,DELAYED * Take one(1) tablet daily. 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] 10/16/2008 Thoracic or lumbosacral neuritis or radiculitis*03/03/2013 Special screening for malignant neoplasms, colo*01/29/2015 0 01/29/2015 Chronic constipation [K59.09] 10/06/2019 Encounter Status:Closed by REBECCA DA SILVA on 01/16/20 cnov on 2019-11-28 CNOV Office Visit (GENSWS) Normal 11-28-19 [place] [facility] JUSTIN THURMAN ([id number]) 1950 [facility] Date Time Provider Department ([id number]) 11/28/19 8:50 AM RAFA VALDIVIA During your visit today, we recorded the following informati on about you: Temperature Pulse Blood pressure Weight 97.5 degrees 87/minute 110/62 93.4 kg Rafa Valdivia MD 11/28/2019 9:14 AM Signed The following instructions are important for you related to your office visit today with the [facility]. INSTRUCTIONS FOR YOUR SURGICAL PROCEDURE - HERNIA We discussed that a hernia is a weakness in the fascia - the strength layer of the abdominal wall. We discussed would rather you benito ias repaired with mesh or sutures, open or laparoscopically, it is important to all ow your bodies collagen to form a strong permanent repair to minimize the r isk of hernia recurrence. It is very important that no heavy lifting be pe rformed for 8 weeks following surgery. All tobacco/nicotine use needs to be com pletely stopped at least 4 weeks prior to surgery and not used in any form for 8 weeks following lantigua rgery due to nicotine's prevention of appropriate wound healing. Ni cotine use in any form increases the risk of hernia recurrence very significantly b y impairing adequate collagen production making the repair weaker and mo re prone to failure. Smoking increases the risk of post operative pneumo astrid and other complications. We discussed the risks and benefits of y our planned procedure. If you have any additional questions, please contact our office immediately. Preadmission testing is an important part of preparat ion for your procedure. All laboratory studies, x-rays, and additional testing must be available for the preadmission testing staff to help ready you for surgery. You should not take aspirin or other blood thinners for one week prior to surgery unless instructed differently. You shoul d not have anything to eat or drink after midnight the night prior to your surgery. You sh ould wear comfortable clothes for your procedure. Please underst and that the operating room schedule is an estimated time for y our surgical procedure. Your procedure may be somewhat earlier or somewhat later than the estimated time. You'll be discharged home with postoperative instructi ons and typically pain medications. Please be aware that many pain medi cations may cause nausea. You should typically eat light foods as you take your pain medic ations. Your dressing will usually be able to be removed two to three day s following surgery. You may typically shower three days after surgery. If you have Steri-Strips on your incision (little white tapes) you should leave these in place until they fall off. You will typically have a [facility] office visit 1 to 2 weeks after surgery. Again, if you have any difficultie s or concerns, contact our office immediately. If you note any additional difficulties, questions, or con cerns, you should contact our office immediately @ and ask to be transferred to the General Surgery department. Rafa Valdivia MD 11/28/2019 10:09 AM Signed HISTORY AND PHYSICAL Justin Thurman 1950 REFERRING PHYSICIAN: Catalino Posada MD CHIEF COMPLAINT: Consult (Hernia consult ) HPI: Justin is a 69 year ol d male with a complaint of a bulge without any true discomfort in his right inguinal region. The patient n otes a history of both benign prostatic hypertrophy with voiding difficulties and c hronic constipation. He notes that his hernia while asymptomatic is growing over time. He presented to [facility] for a flare of his Parkinson's symptoms and underwent a CT scan at that time which demonstrated a right inguinal hernia with a loop of small bowel contained within the hernia. The patient had a previous open bilateral inguinal her astrid repair in the late . He understands no mesh was placed in either groin durin g that repair. The patient notes no symptoms of bowel obstruction and denie s nausea or vomiting. The patient smokes a pipe regularly which she is willing to try to quit prior to surgery. He also was just started on the rela xers chronic constipation and Flomax for his BPH issues. The patient was seen by his primary care carmeni janelle who felt the patient has a hernia. Justin was referred for evaluation and treatment. The patient is being seen by me today at the request of Dr. Catalino Posada MD for my opinion and advice regarding a right i nguinal hernia with the above issues. He returns now noting that he is smoking his pip e twice a day but noting more discomfort in his inguinal area. PAST MEDICAL HISTORY Diagnosis Date - Paralysis agitans (HCC) - Parkinson disease (HCC) PAST SURGICAL HISTORY Procedure Laterality Date - COLONOSCOP W/ OR W/O [facility] SPEC 01/29/15 Colonoscopy - COLONOSCOP W/ OR W/O [facility] SPEC 02/18/2018 Colonoscopy - REPAIR ING HERNIA,5+Y/O,REDUCIBL Hernia repair, inguinal, times 2 Current Outpatient Medications Medication Sig - carbidopa-levodopa (SINEMET 25-100) 25-100 mg per ta blet Take 2 tablets by mouth four times daily. - rOPINIRole Hydrochloride (REQUIP) 3 mg tablet Take 1 tablet by mouth three times daily. - polyethylene glycol 3350 ( MIRALAX) 17 gram/dose powder Take 17 grams daily as needed for constipation - tamsulosin ER (FLOMAX) 0.4 mg cap Take 1 capsu le by mouth daily at bedtime. - multivitamin tablet Take 1 tablet by mouth once daily. - senna (SENNA) 8.6 mg tab Take 1 tablet by mouth once daily as needed. - ASPIRIN 81 MG TAB, DELAYED RELEASE Take one(1) tablet milad y. No current facility-administered medications for this visit. ALLERGIES: Penicillins PERSONAL HISTORY: Social History Tobacco Use - Smoking status: Current Every Day Smoker Types: Pipe - Smokeless tobacco: Never Used - Tobacco comment: Pipe Substance Use Topics - Alcohol use: No Frequency: Monthly or less Binge frequency: Never - Drug use: No FAMILY HISTORY: History reviewed. No pertinent family histor y. REVIEW OF SYMPTOMS: The review of systems data was entered by the nurse and revi ewed by me There are no exam notes on file for this visit. PHYSICAL EXAMINATION: General: The patient is 69 year old male, well n ourished, well hydrated in no acute distress. The patient is oriented to time, place, and person. VITALS: Blood pressure 110/62, pulse 87, temperature 36.4 ?C (97.5 ?F), weight 93.4 kg (205 lb 12.8 oz), SpO2 96 %. Body mass index is 28.7 kg/m?. HEENT: Normal cephalic, ataumatic, pupils are equally round, sclera are anicteric, mucous membranes are moist, oropharynx is clear. Neck has no masses, asymmetry or lymphadenopathy. Thyroid is unremarkabl e. Respiratory: Clear to auscultation and percussion. Normal re spiratory excursion and pattern. Cardiac: Examination is regular rate and rhythm. Abdominal exam: Soft, nontender, with no palpable masses. No hepatosplenomegaly. A moderate reducible right inguinal benito ia, no left inguinal., A small umbilical hernias is noted Rectal exam: exam deferred Extremities: no clubbing, cyanosis or edema. No adenopathy. Other: LABORATORY VALUES: As Noted RADIOLOGIC STUDIES: As Noted Assessment IMPRESSION: Recurrent right inguinal hernia, umbilical herni a PLAN: My plan is to perform a laparoscopic right ingui nal hernia repair, and laparoscopic ventral hernia repair. The planned surgical pro cedure was discussed extensively with the patient. The risks, benefits, anticipated outcomes and possible complications were mentioned. [facility] perezands that all hernia repair surgery has a chance of recurrence and/or chronic post operative pain. My staff has also explained the procedure in understandable terms and the patient was given the opti on to take printed material concerning the planned procedure. The patient had the opportunity to as k questions concerning the planned procedure. The patient freely c onsents to the planned procedure. All tobacco/nicotine use needs to be com pletely stopped at least 4 weeks prior to surgery and not used in any form for 8 weeks following lantigua rgery due to nicotine's prevention of appropriate wound healing The patient also work on treatment for both his benign prost atic hypertrophy/urinary voiding issues and chronic constipation My findings have been communicated to Dr. Catalino Posada MD via shared medical record. This note will be forwarded to Dr. Catalino kunz MD. Diagnoses: (K40.91) Recurrent right inguinal hernia (primary encounter diagnosis) (K42.9) Umbilical hernia without obstruction and without lala grene Anticipated Surgical Procedure/ CPT Code: laparo scopic inguinal hernia repair with mesh, recurrent - 47651-276 laparoscopic ventral hernia repair - 30683-388 Anticipated Anesthetic: General Patient weight: Blood pressure 110/62, pulse 87, temperature 36.4 ?C (97.5 ?F), weight 93.4 kg (205 lb 12.8 oz), SpO2 96 %. BMI: Body m ass index is 28.7 kg/m?. Planned antibiotic: clindamycin 900mg IVPB stone crusher operator to OR SCDs needed - Yes Furniture Delivery Driver Needed - Yes Return to Clinic: The patient is instruc ilsa to follow-up with me one week post operatively. Rafa Valdivia MD Referring Provider: CATALINO POSADA [[id number]] Allergies As of Date: 11/28/2019 Noted Allergy Reaction PENICILLINS 09/18/2008 Date Reviewed: 11/28/2019 Reviewed by: Rafa Valdivia - Fully Assessed Reason for Visit: Established Patient [175] Cmt: Rt inguinal hernia Primary Visit Diagnosis:Recurrent right inguinal hernia [K40 .91] Other Visit Diagnosis:Umbilical hernia without obstruction a nd without gangrene [K42.9] Prescriptions as of 11/28/2019 Sig: CARBIDOPA 25 MG-LEVODOPA 100 * Take 2 tablets by mouth four * ROPINIROLE 3 MG TABLET Take 1 tablet by mouth three * POLYETHYLENE GLYCOL 3350 17 G* Take 17 grams daily as needed * TAMSULOSIN 0.4 MG CAPSULE Take 1 capsule by mouth daily* MULTIVITAMIN TABLET Take 1 tablet by mouth once d* SENNOSIDES 8.6 MG TABLET Take 1 tablet by mouth once d* * ASPIRIN 81 MG TABLET,DELAYED * Take one(1) tablet daily. 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 INSTRUCTIONS FOR YOUR SURGICAL PROCEDURE - HERNIA We discussed that a hernia is a weakness in the fascia - the strength layer of the abdominal wall. We discussed would rather you h ernias repaired with mesh or sutures, open or laparoscopically, it is important to allow your bodies collagen to form a strong permanent rep air to minimize the risk of hernia recurrence. It is very important that no heavy lifting be performed for 8 weeks following surgery. All tobacco/nicotine use needs to be completely stopped at [place] 4 weeks prior to surgery and not used in any form for 8 weeks follow ing surgery due to nicotine's prevention of appropriate wound healing. N icotine use in any form increases the risk of hernia recurrence very sig nificantly by impairing adequate collagen production making the repair wea ker and more prone to failure. Smoking increases the risk of post operati ve pneumonia and other complications. We discussed the risks and benefits of your planned procedur e. If you have any additional questions, please contact our office imm ediately. Preadmission testing is an important part of preparation for your procedure. All laboratory studies, x-rays, and additional te sting must be available for the preadmission testing staff to help ready y ou for surgery. You should not take aspirin or other blood thinners for one week prior to surgery unless instructed differently. You should not have a nything to eat or drink after midnight the night prior to your surgery. You should wear comfortable clothes for your procedure. Please understa nd that the operating room schedule is an estimated time for your surgic al procedure. Your procedure may be somewhat earlier or somewhat later kurtis n the estimated time. You'll be discharged home with postoperative instructions an d typically pain medications. Please be aware that many pain medications may cause nausea. You should typically eat light foods as you take you r pain medications. Your dressing will usually be able to be remove d two to three days following surgery. You may typically shower three days after surgery. If you have Steri-Strips on your incision (little w vesna tapes) you should leave these in place until they fall off. You laurel typically have a followup office visit 1 to 2 weeks after surgery. Aga in, if you have any difficulties or concerns, contact our office [place]. If you note any additional difficulties, questions, or cliff rns, you should contact our office immediately @ [phone] and ask to be transferred to the General Surgery department. Encounter Status:Closed by RAFA VALDIVIA MD on 11/28/19 progress on 2019-09 PROGRESS HNO ID: [id number] Normal 10-14-2019 [facility] Author: Rafa Valdivia [place] ([id number]) Service: ? Author Type: Physician Type: Progress Notes Filed: 10/14/2019 6:39 PM Note Text: HISTORY AND PHYSICAL Justin Thurman 1950 REFERRING PHYSICIAN: Catalino Posada MD CHIEF COMPLAINT: Consult (Hernia consult ) HPI: Justin is a 69 year old male with a complaint of a bul ge without any true discomfort in his right inguinal region. The patient no kavon a history of both benign prostatic hypertrophy with voiding difficulti es and chronic constipation. He notes that his hernia while asymptomatic is growing over time. He presented to [facility] for a flare of his Parkinson's symptoms and underwent a CT scan at that time wh ich demonstrated a right inguinal hernia with a loop of small tray wel contained within the hernia. The patient had a previous open bilateral inguinal hernia re pair in the late . He understands no mesh was placed in either groin during that repair. The patient notes no symptoms of bowel obstruction and denie s nausea or vomiting. The patient smokes a pipe regularly which she is willing to try to quit prior to surgery. He also was just started on the relaxers c hronic constipation and Flomax for his BPH issues. The patient was seen by his primary care physician who felt the patient has a hernia. Justin was referred for evaluation and treatm ent. The patient is being seen by me today at the request of Dr. Catalino Posada MD for my opinion and advice regarding a right i nguinal hernia with the above issues. PAST MEDICAL HISTORY Diagnosis Date - Paralysis agitans (HCC) - Parkinson disease (HCC) PAST SURGICAL HISTORY Procedure Laterality Date - COLONOSCOP W/ OR W/O [facility] SPEC 01/29/15 Colonoscopy - COLONOSCOP W/ OR W/O [facility] SPEC 02/18/2018 Colonoscopy - REPAIR ING HERNIA,5+Y/O,REDUCIBL Hernia repair, inguinal, times 2 Current Outpatient Medications Medication Sig - carbidopa-levodopa (SINEMET 25-100) 25-100 mg per tablet T liza 2 tablets by mouth four times daily. - rOPINIRole Hydrochloride (REQUIP) 3 mg tablet Take 1 table t by mouth three times daily. - polyethylene glycol 3350 (MIRALAX) 17 gram/dose powder Joseph e 17 grams daily as needed for constipation - tamsulosin ER (FLOMAX) 0.4 mg cap Take 1 capsule by mouth daily at bedtime. - multivitamin tablet Take 1 tablet by mouth once daily. - senna (SENNA) 8.6 mg tab Take 1 tablet by mouth once daily as needed. - ASPIRIN 81 MG TAB, DELAYED RELEASE Take one(1) tablet milad y. No current facility-administered medications for this visit. ALLERGIES: Penicillins PERSONAL HISTORY: Social History Tobacco Use - Smoking status: Current Every Day Smoker Types: Pipe - Smokeless tobacco: Never Used - Tobacco comment: Pipe Substance Use Topics - Alcohol use: No Frequency: Monthly or less Binge frequency: Never - Drug use: No FAMILY HISTORY: History reviewed. No pertinent family histor y. REVIEW OF SYMPTOMS: The review of systems data was entered by the nurse and revi ewed by hi Nursing Notes: Donny Covarrubias LPN 10/14/2019 2:26 PM Signed REVIEW OF SYSTEMS: General: The patient denies fatigue, denies weight loss, den ies weight gain, denies feeling hot, and denies feelings of cold . Eyes: The patient denies glaucoma, denies eye injury/surgery , wears glasses or contacts. Ear/Nose/Throat: The patient denies allergies, denies hayfev er, denies ear infections, and denies bloody noses. Cardiovascular: The patient denies chest pain, denies heart disease, denies high blood pressure,denies cardiac stent, denies prio r heart attack, denies irregular heart beat, denies high cholesterol , denies poor circulation, denies heart failure, other cardiac issues, den ies claudication, denies cold feet, denies peripheral arterial s tent. Respiratory: The patient denies tuberculosis, denies pneumon ia, denies frequent cough, denies pulmonary embolism, denies shi rtness of breath, and denies coughing up blood. Gastrointestinal: The patient denies difficulty swallowing, denies acid reflux, denies ulcers, denies vomiting, denies jaundice /hepatitis, denies gallbladder problems, denies black or tarry stools, d enies hemorrhoids, denies bleeding from rectum, denies diverticuli tis, NOTES constipation, denies diarrhea, denies loss of stool control, and NOTES hernias. Kidney/Bladder: The patient denies kidney stones, denies uri ne infections, and denies bloody urine. Skin: The patient denies a history of skin cancer, denies bleeding/changing moles, and denies a history of skin rash. Neurologic: The patient denies a history of epilepsy/convuls ions, denies headaches, denies head/spinal injuries, and denies st roke/TIA. Psychiatric: The patient denies psychiatric medications, den ies depression, and denies voices, denies substance abuse. Endocrine: The patient denies thyroid disorders, denies diab etes, and denies hormonal problems. Hematologic: The patient denies a history of bruising, denie s bleeding, and denies anemia, denies blood clots. Infections: The patient denies a history of measles and mump s, denies rheumatic fever, and denies sexually transmitted dise ases. Musculoskeletal: The patient denies back pain/injury, denies back problems, denies sciatica, denies knee/foot trouble, denies arthritis, or denies gout. When was patient's last Mammogram screening? N/A Last Colonoscopy: 03/04 Donny Covarrubias LPN PHYSICAL EXAMINATION: General: The patient is 69 year old male, well nourished, we ll hydrated in no acute distress. The patient is oriented to time, place , and person. VITALS: Blood pressure 152/64, pulse 83, temperature 36.4 ?C (97.5 ?F), SpO2 97 %. There is no height or weight on file to calculate BMI. HEENT: Normal cephalic, ataumatic, pupils are equally round, sclera are anicteric, mucous membranes are moist, oropharynx is clear. Neck has no masses, asymmetry or lymphadenopathy. Thyroid is unremarkabl e. Respiratory: Clear to auscultation and percussion. Normal re spiratory excursion and pattern. Cardiac: Examination is regular rate and rhythm. Abdominal exam: Soft, nontender, with no palpable masses. No hepatosplenomegaly. A moderate reducible right inguinal benito ia, no left inguinal or umbilical hernias are noted Rectal exam: exam deferred Extremities: no clubbing, cyanosis or edema. No adenopathy. Other: LABORATORY VALUES: As Noted RADIOLOGIC STUDIES: As Noted Assessment IMPRESSION: Recurrent right inguinal hernia PLAN: My plan is to perform a open right inguinal hernia rep air with mesh. The planned surgical procedure was discussed extensive ly with the patient. The risks, benefits, anticipated outcomes and possi ble complications were mentioned. Justin undersands that all he rnia repair surgery has a chance of recurrence and/or chronic post opera tive pain. My staff has also explained the procedure in understandable ter ms and the patient was given the option to take printed material concer barron the planned procedure. The patient had the opportunity to ask qu estions concerning the planned procedure. The patient freely consent s to the planned procedure. All tobacco/nicotine use needs to be completely stopped at east 4 weeks prior to surgery and not used in any form for 8 weeks follow ing surgery due to nicotine's prevention of appropriate wound healing The patient also work on treatment for both his benign prost atic hypertrophy/urinary voiding issues and chronic constipation My findings have been communicated to Dr. Catalino Posada MD via shared medical record. This note will be forwarded to Dr. Maria Esther Posada MD. Diagnoses: (K40.90) Right inguinal hernia (primary encounter diagnosis) (K59.09) Chronic constipation (G20) Paralysis agitans (HCC) (N40.1, R39.14) Benign prostatic hyperplasia with incomplete bladder emptying Anticipated CPT Code: open right inguinal hernia repair with mesh - recurrent - 48074-276 Anticipated Anesthetic: MAC with local Patient weight: Blood pressure 152/64, pulse 83, temperature 36.4 ?C (97.5 ?F), SpO2 97 %. BMI: There is no height or weight on f ile to calculate BMI. Planned antibiotic: clindamycin 900mg IVPB stone crusher operator to OR SCDs needed - Yes Return to Clinic: The patient is instructed to follow-up wit h me when all nicotine products have been completely stopped for at least 2 weeks. Rafa Valdivia MD cnov on 2019-10-14 CNOV Office Visit (GENSWS) Normal 10-14-19 20 [facility] JUSTIN THURMAN ([id number]) 1950 [facility] Time Provider Department ([id number]) 10/14/19 1:30 PM RAFA VALDIVIA During your visit today, we recorded the following informati on about you: Temperature Pulse Blood pressure 97.5 degrees 83/minute 152/64 Donny Covarrubias LPN 10/14/2019 2:26 PM Signed REVIEW OF SYSTEMS: General: The patient denies fatigue, denies weight loss, den ies weight gain, denies feeling hot, and denies feelings of cold. Eyes: The patient denies glaucoma, denies eye injury/surgery , wears glasses or contacts. Ear/Nose/Throat: The patient denies allergies, denies hayfev er, denies ear infections, and denies bloody noses. Cardiovascular: The patient denies chest pain, denies heart disease, denies high blood pressure,denies cardiac stent, denies pr ior heart attack, denies irregular heart beat, denies high cholesterol, denies poor circulation, denies heart failure, other cardiac issues, denies cla udication, denies cold feet, denies peripheral arterial stent. Respiratory: The patient denies tuberculosis, denies pneumon ia, denies frequent cough, denies pulmonary embolism, denies shortness of breath, and denies coughing up blood. Gastrointestinal: The patient denies difficulty swallowing, denies acid reflux, denies ulcers, denies vomiting, denies jaundice/hepa titis, denies gallbladder problems, denies black or ta rry stools, denies hemorrhoids, denies bleeding from rectum, denies diverticulitis, NOTES constipat ion, denies diarrhea, denies loss of stool control, and NOTES hernias. Kidney/Bladder: The patient denies kidney stones, denies uri ne infections, and denies bloody urine. Skin: The patient denies a history of skin cancer, denies bleeding/changing moles, and denies a history of skin rash. Neurologic: The patient denies a history of epilepsy/convuls ions, denies headaches, denies head/spinal injuries, and denies stroke/TI A. Psychiatric: The patient denies psychiatric medications, den ies depression, and denies voices, denies substance abuse. Endocrine: The patient denies thyroid disorders, denies diab etes, and denies hormonal problems. Hematologic: The patient denies a history of bruising, denie s bleeding, and denies anemia, denies blood clots. Infections: The patient denies a history of measles and mump s, denies rheumatic fever, and denies sexually transmitted diseases. Musculoskeletal: The patient denies back pain/injury, denies back problems, denies sciatica, denies knee/foot trouble, denies arthritis, or denies gout. When was patient's last Mammogram screening? N/A Last Colonoscopy: 03/04 Donny Valdivia MD 10/14/2019 6:39 PM Signed HISTORY AND PHYSICAL Justin Thurman 1950 REFERRING PHYSICIAN: Catalino Posada MD CHIEF COMPLAINT: Consult (Hernia consult ) HPI: Justin is a 69 year ol d male with a complaint of a bulge without any true discomfort in his right inguinal region. The patient n otes a history of both benign prostatic hypertrophy with voiding difficulties and c hronic constipation. He notes that his hernia while asymptomatic is growing over time. He presented to [facility] for a flare of his Parkinson's symptoms and underwent a CT scan at that time which demonstrated a right inguinal hernia with a loop of small bowel contained within the hernia. The patient had a previous open bilateral inguinal her astrid repair in the late . He understands no mesh was placed in either groin durin g that repair. The patient notes no symptoms of bowel obstruction and denie s nausea or vomiting. The patient smokes a pipe regularly which she is willing to try to quit prior to surgery. He also was just started on the rela xers chronic constipation and Flomax for his BPH issues. The patient was seen by his primary care physici an who felt the patient has a hernia. Justin was referred for evaluation and treatment. The patient is being seen by me today at the request of Dr. Catalino Posada MD for my opinion and advice regarding a right i nguinal hernia with the above issues. PAST MEDICAL HISTORY Diagnosis Date - Paralysis agitans (HCC) - Parkinson disease (HCC) PAST SURGICAL HISTORY Procedure Laterality Date - COLONOSCOP W/ OR W/O [facility] SPEC 01/29/15 Colonoscopy - COLONOSCOP W/ OR W/O [facility] SPEC 02/18/2018 Colonoscopy - REPAIR ING HERNIA,5+Y/O,REDUCIBL Hernia repair, inguinal, times 2 Current Outpatient Medications Medication Sig - carbidopa-levodopa (SINEMET 25-100) 25-100 mg per ta blet Take 2 tablets by mouth four times daily. - rOPINIRole Hydrochloride (REQUIP) 3 mg tablet Take 1 tablet by mouth three times daily. - polyethylene glycol 3350 ( MIRALAX) 17 gram/dose powder Take 17 grams daily as needed for constipation - tamsulosin ER (FLOMAX) 0.4 mg cap Take 1 capsu le by mouth daily at bedtime. - multivitamin tablet Take 1 tablet by mouth once daily. - senna (SENNA) 8.6 mg tab Take 1 tablet by mouth once daily as needed. - ASPIRIN 81 MG TAB, DELAYED RELEASE Take one(1) tablet milad y. No current facility-administered medications for this visit. ALLERGIES: Penicillins PERSONAL HISTORY: Social History Tobacco Use - Smoking status: Current Every Day Smoker Types: Pipe - Smokeless tobacco: Never Used - Tobacco comment: Pipe Substance Use Topics - Alcohol use: No Frequency: Monthly or less Binge frequency: Never - Drug use: No FAMILY HISTORY: History reviewed. No pertinent family histor y. REVIEW OF SYMPTOMS: The review of systems data was entered by the nurse and revi ewed by hi Nursing Notes: Donny Covarrubias LPN 10/14/2019 2:26 PM Signed REVIEW OF SYSTEMS: General: The patient denies fatigue, denies weight loss, den ies weight gain, denies feeling hot, and denies feelings of cold. Eyes: The patient denies glaucoma, denies eye injury/surgery , wears glasses or contacts. Ear/Nose/Throat: The patient denies allergies, denies hayfev er, denies ear infections, and denies bloody noses. Cardiovascular: The patient denies chest pain, denies heart disease, denies high blood pressure,denies cardiac stent, denies pr ior heart attack, denies irregular heart beat, denies high cholesterol, denies poor circulation, denies heart failure, other cardiac issues, denies cla udication, denies cold feet, denies peripheral arterial stent. Respiratory: The patient denies tuberculosis, denies pneumon ia, denies frequent cough, denies pulmonary embolism, denies shortness of breath, and denies coughing up blood. Gastrointestinal: The patient denies difficulty swallowing, denies acid reflux, denies ulcers, denies vomiting, denies jaundice/hepa titis, denies gallbladder problems, denies black or ta rry stools, denies hemorrhoids, denies bleeding from rectum, denies diverticulitis, NOTES constipat ion, denies diarrhea, denies loss of stool control, and NOTES hernias. Kidney/Bladder: The patient denies kidney stones, denies uri ne infections, and denies bloody urine. Skin: The patient denies a history of skin cancer, denies bleeding/changing moles, and denies a history of skin rash. Neurologic: The patient denies a history of epilepsy/convuls ions, denies headaches, denies head/spinal injuries, and denies stroke/TI A. Psychiatric: The patient denies psychiatric medications, den ies depression, and denies voices, denies substance abuse. Endocrine: The patient denies thyroid disorders, denies diab etes, and denies hormonal problems. Hematologic: The patient denies a history of bruising, denie s bleeding, and denies anemia, denies blood clots. Infections: The patient denies a history of measles and mump s, denies rheumatic fever, and denies sexually transmitted diseases. Musculoskeletal: The patient denies back pain/injury, denies back problems, denies sciatica, denies knee/foot trouble, denies arthritis, or denies gout. When was patient's last Mammogram screening? N/A Last Colonoscopy: 03/04 Donny Covarrubias [facility] PHYSICAL EXAMINATION: General: The patient is 69 year old male, well n ourished, well hydrated in no acute distress. The patient is oriented to time, place, and person. VITALS: Blood pressure 152/6 4, pulse 83, temperature 36.4 ?C (97.5 ?F), SpO2 97 %. There is no height or weight on file to calculate BMI. HEENT: Normal cephalic, ataumatic, pupils are equally round, sclera are anicteric, mucous membranes are moist, oropharynx is clear. Neck has no masses, asymmetry or lymphadenopathy. Thyroid is unremarkabl e. Respiratory: Clear to auscultation and percussion. Normal re spiratory excursion and pattern. Cardiac: Examination is regular rate and rhythm. Abdominal exam: Soft, nontender, with no palpable masses. No hepatosplenomegaly. A moderate reducible right inguinal benito ia, no left inguinal or umbilical hernias are noted Rectal exam: exam deferred Extremities: no clubbing, cyanosis or edema. No adenopathy. Other: LABORATORY VALUES: As Noted RADIOLOGIC STUDIES: As Noted Assessment IMPRESSION: Recurrent right inguinal hernia PLAN: My plan is to perform a open right inguinal hernia rep air with mesh. The planned surgical procedure was discu ssed extensively with the patient. The risks, benefits, anticipated outcomes and possible complicat ions were mentioned. Justin perezands that all hernia repair s urgery has a chance of recurrence and/or chronic post operative pain. My staff has also explained the procedure in understandable terms and th e patient was given the option to take printed material concerning the planned procedure. The patie nt had the opportunity to ask questions concerning the planned procedur e. The patient freely consents to the planned procedure. All tobacco/nicotine use needs to be com pletely stopped at least 4 weeks prior to surgery and not used in any form for 8 weeks following lantigua rgery due to nicotine's prevention of appropriate wound healing The patient also work on treatment for both his benign prost atic hypertrophy/urinary voiding issues and chronic constipation My findings have been communicated to Dr. Catalino Posada MD via shared medical record. This note will be forwarded to Dr. Catalino kunz MD. Diagnoses: (K40.90) Right inguinal hernia (primary encounter diagnosis) (K59.09) Chronic constipation (G20) Paralysis agitans (HCC) (N40.1, R39.14) Benign prostatic hyperplasia wit h incomplete bladder emptying Anticipated CPT Code: open r ight inguinal hernia repair with mesh - recurrent - 61629-510 Anticipated Anesthetic: MAC with local Patient weight: Blood pressure 152/64, pulse 83, temperature 36.4 ?C (97.5 ?F), SpO2 97 %. BMI: There is no height or weight on file to calculate BMI. Planned antibiotic: clindamycin 900mg IVPB stone crusher operator to OR SCDs needed - Yes Return to Clinic: The patient is instructed to follow-up wit h me when all nicotine products have been completely stopped for at least 2 weeks. Rafa Valdivia MD Referring Provider: CATALINO POSADA [[id number]] Allergies As of Date: 10/14/2019 Noted Allergy Reaction PENICILLINS 09/18/2008 Date Reviewed: 10/14/2019 Reviewed by: Rafa Valdivia - Fully Assessed Reason for Visit: Consult [173] Cmt: Hernia consult Primary Visit Diagnosis:Right inguinal hernia [K40.90] Other Visit Diagnoses:Chronic constipation [K59.09] Paralysis agitans (HCC) [G20] Benign prostatic hyperplasia with incomplete bladder emptying [N40.1, R39.14] Prescriptions as of 10/14/2019 Sig: CARBIDOPA 25 MG-LEVODOPA 100 * Take 2 tablets by mouth four * ROPINIROLE 3 MG TABLET Take 1 tablet by mouth three * POLYETHYLENE GLYCOL 3350 17 G* Take 17 grams daily as needed * TAMSULOSIN 0.4 MG CAPSULE Take 1 capsule by mouth daily* MULTIVITAMIN TABLET Take 1 tablet by mouth once d* SENNOSIDES 8.6 MG TABLET Take 1 tablet by mouth once d* * ASPIRIN 81 MG TABLET,DELAYED * Take one(1) tablet daily. Problem List As Of Date 10/14/2019 Noted Resolved PARALYSIS AGITANS [G20] 10/16/2008 Thoracic or lumbosacral neuritis or radiculitis*03/03/2013 Special screening for malignant neoplasms, colo*01/29/2015 0 01/29/2015 Chronic constipation [K59.09] 10/06/2019 Visit Notes: >> Donny Covarrubias LPN rosie Oct 14, 2019 2:24 PM Status: Signed REVIEW OF SYSTEMS: General: The patient denies fatigue, denies weight loss, den ies weight gain, denies feeling hot, and denies feelings of cold . Eyes: The patient denies glaucoma, denies eye injury/surgery , wears glasses or contacts. Ear/Nose/Throat: The patient denies allergies, denies hayfev er, denies ear infections, and denies bloody noses. Cardiovascular: The patient denies chest pain, denies heart disease, denies high blood pressure,denies cardiac stent, denies prio r heart attack, denies irregular heart beat, denies high cholesterol , denies poor circulation, denies heart failure, other cardiac issues, den ies claudication, denies cold feet, denies peripheral arterial s tent. Respiratory: The patient denies tuberculosis, denies pneumon ia, denies frequent cough, denies pulmonary embolism, denies shi rtness of breath, and denies coughing up blood. Gastrointestinal: The patient denies difficulty swallowing, denies acid reflux, denies ulcers, denies vomiting, denies jaundice /hepatitis, denies gallbladder problems, denies black or tarry stools, d enies hemorrhoids, denies bleeding from rectum, denies diverticuli tis, NOTES constipation, denies diarrhea, denies loss of stool control, and NOTES hernias. Kidney/Bladder: The patient denies kidney stones, denies uri ne infections, and denies bloody urine. Skin: The patient denies a history of skin cancer, denies bleeding/changing moles, and denies a history of skin rash. Neurologic: The patient denies a history of epilepsy/convuls ions, denies headaches, denies head/spinal injuries, and denies st roke/TIA. Psychiatric: The patient denies psychiatric medications, den ies depression, and denies voices, denies substance abuse. Endocrine: The patient denies thyroid disorders, denies diab etes, and denies hormonal problems. Hematologic: The patient denies a history of bruising, denie s bleeding, and denies anemia, denies blood clots. Infections: The patient denies a history of measles and mump s, denies rheumatic fever, and denies sexually transmitted dise ases. Musculoskeletal: The patient denies back pain/injury, denies back problems, denies sciatica, denies knee/foot trouble, denies arthritis, or denies gout. When was patient's last Mammogram screening? N/A Last Colonoscopy: 03/04 Donny Covarrubias LPN Encounter Status:Closed by RAFA VALDIVIA MD on 10/14/19 progress on 2019-09 PROGRESS HNO ID: [id number] Normal 10-06-2019 [id number] Service: ? Author Type: Physician Type: Progress Notes Filed: 10/06/2019 5:22 PM Note Text: Chief Complaint Patient presents with: Medication Problem ED Follow-up: abd pain, dizziness HPI Justin Thurman is a 69 year old male who presents here tod ay for a medication issue and ER follow up Pt went to [facility] ER on 10/01/2019 with c/o of lower abdominal p ain. States he has hernia in the abdomen and felt that the right side wa s bulging more than normal. He was brought in by squad. Pain seemed to reso lve during the ride to the ER. He denied any dysuria or hematuria. Admits t hat he does have frequent urination. No nausea/vomiting, no diarrhea, me leatha, or hematochezia. CT scna was done on abdomen as well as blood w ork. He denied any further issues or pain while in the ER during lizet luation, pain had resolved. Pt was discharged and advised to follow up [facility] PCP and to follow up with his surgeon as needed. Pt states that he is not having any pain at this time. C/o o f dizziness. He staes that he has chronic constipation and it seems to be worsening. He is straining to have a BM and feels he pushes so hard he can feel a bulge in the right lower abdomen which he states he is able to push back in. He uses Senna. Pt had colonoscopy in February [address] Zamuido. Needs to repeat in 3 years due to benign polyp. He states that his urination is getting worse every year due to his prostates getting another year older and he is getting up 4-5 times a night to urinate. He states that he has urgency and little o utput at times. Parkinson's: He is taking Requip 3 mg, 1 tablet TID and Sine met 25-100 mg, 2 tablets four times per day. Is following with Dr. 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 He has had falls and shuffles his feet a lot. He sta kavon that he isn't sure if he has a psychological issues, he states that sometimes he gets very nervous and shaky and dizziness. Advised pt to dis cuss with Neuro. Pt does not feel his parkinson's is getting any worse , but does not feel his medications are lasting as long between dosages . Sometimes the nervousness will pass quickly. Past medical history, appointments, medications, allergies r eviewed. Previous Medical History PAST MEDICAL HISTORY Diagnosis Date - Paralysis agitans (HCC) - Parkinson disease (HCC) Previous Surgical History PAST SURGICAL HISTORY Procedure Laterality Date - COLONOSCOP W/ OR W/O [facility] SPEC 01/29/15 Colonoscopy - COLONOSCOP W/ OR W/O [facility] SPEC 02/18/2018 Colonoscopy - REPAIR ING HERNIA,5+Y/O,REDUCIBL Hernia repair, inguinal, times 2 Family History No family history on file. Patient Allergies ALLERGIES Allergen Reactions - Penicillins Current Medications Current Outpatient Medications on File Prior to Visit Medication Sig - multivitamin tablet Take 1 tablet by mouth once daily. - senna (SENNA) 8.6 mg tab Take 1 tablet by mouth once daily as needed. - rOPINIRole Hydrochloride (REQUIP) 3 mg tablet Take 1 table t by mouth four times daily. - carbidopa-levodopa (SINEMET 25-100) 25-100 mg per tablet T liza 1 tablet by mouth four times daily. - ASPIRIN 81 MG TAB, DELAYED RELEASE Take one(1) tablet milad y. No current facility-administered medications on file prior t o visit. Social History Social History Tobacco Use - Smoking status: Current Every Day Smoker Types: Pipe - Smokeless tobacco: Never Used - Tobacco comment: Pipe Substance Use Topics - Alcohol use: No Frequency: Monthly or less Binge frequency: Never - Drug use: No EXAM: BP 138/80 Pulse 100 Resp 16 Wt 93 kg (205 lb) BMI 28 .59 kg/m? General Appearance: Well appearing, alert, in no acute distr ess, well-hydrated, well nourished.. Lungs: lungs clear to auscultation. No wheezing, rhonchi, ra les. Heart: RRR without murmur, gallop, or rubs. No ectopy. Health Maintenance List DTAP,TDAP,TD(1 - Tdap) due on 1959 HEPATITIS C SCREENING due on 1992 SHINGRIX VACCINE(1 of 2) due on 1998 LIPID SCREEN due on 04/29/2020 COLORECTAL CANCER SCREENING,SEE MODIFIER due on 02/18/2021 DIABETES SCREEN due on 06/24/2022 ADULT PREVNAR-13 Completed INFLUENZA Completed PNEUMOVAX AGE 65 AND OVER WITH 5YR LOOKBACK Completed Data reviewed [facility] ER reports, imaging, labs from 10/01/2019 ASSESSMENT/PLAN: 1. Hernia of abdominal wall - ICD9: 553.20, ICD10: K43.9 (pr imary diagnosis) Consult General Surgery 2. Generalized abdominal pain - ICD9: 789.07, ICD10: R10.84 - Consult Surgery 3. Parkinsonism, unspecified Parkinsonism type (HCC) - ICD9: 332.0, ICD10: G20 Continue with Neurologist - CARBIDOPA 25 MG-LEVODOPA 100 MG TABLET - ROPINIROLE 3 MG TABLET 4. Chronic constipation - ICD9: 564.00, ICD10: K59.09 Stop Senna Start Mucinex daily, adjust as needed 5. Benign prostatic hyperplasia with urinary frequency - ICD 9: 600.01, 788.41, ICD10: N40.1, R35.0 acute Start Flomax 0.4 mg daily Follow up in 3 months. I agree with the Chief Complaint, ROS, and Past Histories in dependently gathered by the clinical senior office support assistant sosa and the remaining scr ibed note accurately describes my personal service to the patient. Catalino Posada MD The documentation for this note was completed by Brandee haskins Ma acting as scribe for Catalino Posada MD. October 06, 2019 10:39 AM. Brandee Finn Ma cnov on 2019-10-06 CNOV Office Visit (FAMPWS) Normal 10-06-[address] [place] [address] [facility] JUSTIN THURMAN ([id number]) 1950 [facility] Date Time Provider Department ([id number]) 10/06/19 10:40 AM CATALINO POSADA During your visit today, we recorded the following informati on about you: Pulse Respiration Blood pressure Weight 100/minute 16/minute 138/80 93 kg Catalino Posada MD 10/06/2019 5:22 PM Signed Chief Complaint Patient presents with: Medication Problem ED Follow-up: abd pain, dizziness HPI Justin Thurman is a 69 yea r old male who presents here today for a medication issue and ER follow up Pt went to [facility] ER on 10/01/2019 with c/o of lower abdominal pain. States he has hernia in the abdomen and felt that the right side was bulgi ng more than normal. He was brought in by squad. Pain seemed to resolve during the ride to the ER. He denied any dysuria or hematuria. Admi ts that he does have frequent urination. No nausea/vomiting, no diarrhea, melena, or hematochezia. CT scna was done on abdomen as well as blood work. He denied any fur ther issues or pain while in the ER during evaluation, pain had resol noemi. Pt was discharged and advised to follow up with PCP and to follow up with his surgeon as needed. Pt states that he is not having any pain at this time. C/o of dizziness. He staes that he has chronic constipation and it seems to be wo rsening. He is straining to have a BM and feels he pushes so greer rd he can feel a bulge in the right lower abdomen which he states he i s able to push back in. He uses Senna. Pt had colonoscopy in February [address] Zamudio. Needs to repeat in 3 years due to benign polyp. He states that his urination is getting worse ev sandy year due to his prostates getting another year older and he is getting up 4-5 times a night to urinate. He states that he has urgency and little output at times. Parkinson's: He is taking Requip 3 mg, 1 tablet TID an d Sinemet 25-100 mg, 2 tablets four times per day. Is following with Dr David Pozo/AEROSPACE QUALITY ENGINEER every 3 months. He has had falls and shuffles his feet a lot. He states that he isn't sure if he has a psychological is sues, he states that sometimes he gets very nervous and shaky and dizziness. Advised pt to discuss with Neuro. Pt does not feel his parkinson's is getting any worse, but does not feel hi s medications are lasting as long between dosages. Sometimes the n ervousness will pass quickly. Past medical history, appointments, medications, allergies r eviewed. Previous Medical History PAST MEDICAL HISTORY Diagnosis Date - Paralysis agitans (HCC) - Parkinson disease (HCC) Previous Surgical History PAST SURGICAL HISTORY Procedure Laterality Date - COLONOSCOP W/ OR W/O [facility] SPEC 01/29/15 Colonoscopy - COLONOSCOP W/ OR W/O [facility] SPEC 02/18/2018 Colonoscopy - REPAIR ING HERNIA,5+Y/O,REDUCIBL Hernia repair, inguinal, times 2 Family History No family history on file. Patient Allergies ALLERGIES Allergen Reactions - Penicillins Current Medications Current Outpatient Medications on File Prior to Visit Medication Sig - multivitamin tablet Take 1 tablet by mouth once daily. - senna (SENNA) 8.6 mg tab Take 1 tablet by mouth once daily as needed. - rOPINIRole Hydrochloride (REQUIP) 3 mg tablet Take 1 tab let by mouth four times daily. - carbidopa-levodopa (SINEMET 25-100) 25-100 mg per tablet Take 1 tablet by mouth four times daily. - ASPIRIN 81 MG TAB, DELAYED RELEASE Take one(1) tablet milad y. No current facility-administered medications on file prior t o visit. Social History Social History Tobacco Use - Smoking status: Current Every Day Smoker Types: Pipe - Smokeless tobacco: Never Used - Tobacco comment: Pipe Substance Use Topics - Alcohol use: No Frequency: Monthly or less Binge frequency: Never - Drug use: No EXAM: BP 138/80 Pulse 100 Resp 16 Wt 93 kg (205 lb) BMI 28 .59 kg/m? General Appearance: Well dominique earing, alert, in no acute distress, well-hydrated, well nourished.. Lungs: lungs clear to auscultation. No wheezing, rhonchi, ra les. Heart: RRR without murmur, gallop, or rubs. No ectopy. Health Maintenance List DTAP,TDAP,TD(1 - Tdap) due on 1959 HEPATITIS C SCREENING due on 1992 SHINGRIX VACCINE(1 of 2) due on 1998 LIPID SCREEN due on 04/29/2020 COLORECTAL CANCER SCREENING,SEE MODIFIER due on 02/18/2021 DIABETES SCREEN due on 06/24/2022 ADULT PREVNAR-13 Completed INFLUENZA Completed PNEUMOVAX AGE 65 AND OVER WITH 5YR LOOKBACK Completed Data reviewed [facility] ER reports, imaging, labs from 10/01/2019 ASSESSMENT/PLAN: 1. Hernia of abdominal wall - ICD9: 553.20, ICD10: K43 .9 (primary diagnosis) Consult General Surgery 2. Generalized abdominal pain - ICD9: 789.07, ICD10: R10.84 - Consult Surgery 3. Parkinsonism, unspecified Parkinsonis m type (HCC) - ICD9: 332.0, ICD10: G20 Continue with Neurologist - CARBIDOPA 25 MG-LEVODOPA 100 MG TABLET - ROPINIROLE 3 MG TABLET 4. Chronic constipation - ICD9: 564.00, ICD10: K59.09 Stop Senna Start Mucinex daily, adjust as needed 5. Benign prostatic hyperplasia with uri nary frequency - ICD9: 600.01, 788.41, ICD10: N40.1, R35.0 acute Start Flomax 0.4 mg daily Follow up in 3 months. I agree with the Chief Complaint, ROS, and Past Histories in dependently gathered by the clinical senior office support assistant sosa and the remaining scr ibed note accurately describes my personal service to the patient. Catalino Posada MD The documentation for this note was completed by Brandee Finn Ma acting as scribe for Catalino Posada MD. October 06, 2019 10:39 AM. Brandee Finn Ma 10/06/2019 11:07 AM Addendum Recommend using Miralax daily. May need to adjust the dosage if stool become too loose or if the dosage is not enough to help bowels be n ormal. May take 3-4 days to notice any difference in bowels. Increase water and fiber in diet. Referring Provider: SELF [200] Allergies As of Date: 10/06/2019 Noted Allergy Reaction PENICILLINS 09/18/2008 Date Reviewed: 10/06/2019 Reviewed by: Brandee Finn Ma - Fully Assessed Reason for Visit: Multiple Concerns [253] Cmt: urination, dizziness, constipat ion ED Follow-up [821] Cmt: abdominal pain Reason For Visit History Recorded Primary Visit Diagnosis:Hernia of abdominal wall [K43.9] Other Visit Diagnoses:Generalized abdominal pain [R10.84] Parkinsonism, unspecified Parkinsonism type (HCC) [G20] Chronic constipation [K59.09] Benign prostatic hyperplasia with urinary frequency [N40.1, R35.0] Order(s):carbidopa-levodopa (SINEMET 25-100) 25-100 mg per t abletTake 2 tablets by mouth four times daily.Disp: Rfl: rOPINIRole Hydrochloride (REQUIP) 3 mg tabletTake 1 tablet b y mouth three times daily.Disp: Rfl: CONSULT TO GENERAL SURGERY [9083] Order #: [id number]: 1 FUTURE polyethylene glycol 3350 (MIRALAX) 17 gram/dose powderTake 1 7 grams daily as needed for constipationDisp: 1 BottleRfl: 11 tamsulosin ER (FLOMAX) 0.4 mg capTake 1 capsule by mouth vonda ly at bedtime.Disp: 90 capsuleRfl: 1 Prescriptions as of 10/06/2019 Sig: CARBIDOPA 25 MG-LEVODOPA 100 * Take 2 tablets by mouth four * ROPINIROLE 3 MG TABLET Take 1 tablet by mouth three * MULTIVITAMIN TABLET Take 1 tablet by mouth once d* SENNOSIDES 8.6 MG TABLET Take 1 tablet by mouth once d* * ASPIRIN 81 MG TABLET,DELAYED * Take one(1) tablet daily. POLYETHYLENE GLYCOL 3350 17 G* Take 17 grams daily as needed * TAMSULOSIN 0.4 MG CAPSULE Take 1 capsule by mouth daily* Problem List As Of Date 10/06/2019 Noted Resolved PARALYSIS AGITANS [G20] 10/16/2008 Thoracic or lumbosacral neuritis or radiculitis*03/03/2013 Special screening for malignant neoplasms, colo*01/29/2015 0 01/29/2015 Chronic constipation [K59.09] 10/06/2019 Other instructions from your clinician: Recommend using Miralax daily. May need to adjust the dosage if stool become too loose or if the dosage is not enough to help darshan ls be normal. May take 3-4 days to notice any difference in bowels. Increase water and fiber in diet. Prescriptions ordered this encounter Disp Refills Start End CARBIDOPA 25 MG-LEVODOPA 100 MG TABL* 10/06/2019 Class: Med Update Route: ORAL Sig: Take 2 tablets by mouth four times daily. ROPINIROLE 3 MG TABLET 10/06/2019 Class: Med Update Route: ORAL Sig: Take 1 tablet by mouth three times daily. POLYETHYLENE GLYCOL 3350 17 GRAM/DOS* 1 Tray* 11 10/06/2019 Sig: Take 17 grams daily as needed for constipation TAMSULOSIN 0.4 MG CAPSULE 90 c* 1 10/06/2019 Route: ORAL Sig: Take 1 capsule by mouth daily at bedtime. Medications Discontinued During This Encounter carbidopa-levodopa (SINEMET 25-100) * 12/07/2014 10/06/2019 Class: Historical Med Route: ORAL Sig: Take 1 tablet by mouth four times daily. Disc: Reason for discontinue is not on file. rOPINIRole Hydrochloride (REQUIP) 3 * 09/16/2018 10/06/2019 Class: Med Update Route: ORAL Sig: Take 1 tablet by mouth four times daily. Disc: Reason for discontinue is not on file. Disposition: Return in about 3 months (around 01/05/2020). Follow-up and Disposition History Recorded Encounter Status:Closed by CATALINO POSADA MD on 10/06/19 Vital Signs Vital Sign Description Value / Unit Date Location The following section is limited to 5 en tries per type and includes entries from the following time range: 20200519 - 2. Body Temperature 98.01 [degF] 05-19-2020 [facility] c ([id number]) Body weight 90.27 kg 05-19-2020 [facility] ([id number]) BP Diastolic 69 mm[Hg] 05-19-2020 [facility] ([id number]) BP Systolic 116 mm[Hg] 05-19-2020 [facility] ([id number]) Height 177.8 cm 05-19-2020 [facility] ([id number]) Pulse (Heart Rate) 76 /min 05-19-2020 [facility] cesar ([id number]) Pulse Oximetry 97 % 05-19-2020 [facility] ([id number]) Respiratory Rate 16 /min 05-19-2020 [facility] c ([id number]) Encounters Date Type Reason Provider Location 05-19-2020 - Admission to [address] 05-19-2020 establishment 05-31-2020 - Evaluation and management Stephani (Rn) Paula [facility] 05-31-2020 of inpatient Care Comment: SN NO ADMIT 05-19-2020 - Patient encounter Preprocedural [place] [address] Pre Anes thesia 05-19-2020 procedure examination done Comment: Preoperative examination (Pr imary Dx); Ventral hernia without obstr uction or gangrene; Chronic constipation; Parkinson disease (HCC) 08-16-2020 - Refill Urinary frequency due Catalino Steen [facility] 08-16-2020 to benign prostatic [place] hypertrophy Comment: Refill Request; Refill Reque st 05-21-2020 - 05-21-2020 Telephone encounter Self [facility] Home Care Comment: Home Care 05-14-2020 - Telephone encounter José (Medical Coding Auditor) [facility] 05-14-2020 [facility] Comment: Home Care 05-03-2020 - Telephone Hernia of anterior [facility] 05-03-2020 encounter abdominal wall Willie Comment: 05-24-2020 Hernia repair 04-28-2020 - 04-28-2020 Telephone encounter Catalino Mckenna [facility] [place] Comment: FYI-No Action Needed Procedures Procedure Name Date Provider Location Colonoscopy 02-18-2018 - 02-18-2018 [facility] ([id number]) Plan of Treatment Plan Description Date Location DIABETES SCREEN DIABETES SCREEN 06-24-2022 - [facility] 06-24-2022 ([id number]) COLONOSCOPY COLONOSCOPY 02-18-2021 - [facility] 02-18-2021 ([id number]) COLORECTAL CANCER COLORECTAL CANCER 02-18-2021 [facility] inic SCREENING,SEE MODIFIER SCREENING,SEE MODIFIER ([id number]) INFLUENZA (#1) INFLUENZA (#1) 2020 - [facility] 05-18-2020 ([id number]) LIPID SCREEN LIPID SCREEN 04-29-2020 - [facility] 04-29-2020 ([id number]) ADVANCE DIRECTIVE ADVANCE DIRECTIVE 2013 - [facility] in DISCUSSION DISCUSSION 2013 ([id number]) SHINGRIX VACCINE (1 of SHINGRIX VACCINE (1 of 1998 - [facility] 2) 2) 1998 ([id number]) DTAP,TDAP,TD (1 - Tdap) DTAP,TDAP,TD (1 - Tdap) 1967 - [facility] 1967 ([id number]) HEPATITIS C SCREENING HEPATITIS C SCREENING 1966 - [facility] 1966 ([id number]) PRE-PROCEDURE & PRE-PROCEDURE & 05-10-2021 [facility] PRE-OPERATIVE COVID PRE-OPERATIVE COVID ([id number]) Microbiology Routine Ventral hernia without obstruction or gangrene Inguinal hernia without obstruction or gangrene, recurrence not specified, unspecified laterality 1 Occurrences starting 05/10/2020 until 05/10/2021 Comment: 1 Occurrences starting 05/10 until 05/10/2021 no information [facility] ([id number]) Immunizations Vaccine Notes Status Date Location Influenza Seasonal influenza, high dose (completed) 06-03-2019 - [facility] - High Dose - Age seasonal, 06-03-2019 ([id number]) 65+ preservative-free Influenza Seasonal influenza, high dose (completed) 06-17-2018 - [facility] - High Dose - Age seasonal, 06-17-2018 (97888) 65+ preservative-free Pneumococcal-13 Vac pneumococcal conjugate (completed) 12-07-2014 - [facility] Conjugate vaccine, 13 valent 12-07-2014 (83356) Pneumovax pneumococcal (completed) 02-18-2016 - [facility] polysaccharide vaccine, 02-18-2016 (441 95) 23 valent Payers Payer Name Policy Number Location MEDICARE [id number] [facility] (44 195) MMO [id number] [facility] (44 [id number]) The following information is from the original human readable contentNo Payer Records FoundNo Payer Records FoundNo Payer Records Found Social History Type Social History Date Location Description History of tobacco use Pipe Smoker 05-05-2020 [facility] ([id number]) History SDOH Physical 98 10-04-2019 - [facility] Activity MPS 10-04-2019 (88362) Tobacco use and exposure Never used 01-05-2020 - [facility] 05-26-2020 ([id number]) Alcohol intake Current non-drinker of 01-05-2020 [facility] alcohol (finding) 05-26-2020 (10176) History SDOH Alcohol 2 10-04-2019 - [facility] Frequency 10-04-2019 (45374) History SDOH Alcohol 1 10-04-2019 - [facility] linic Binge 10-04-2019 (56453) History SDOH Social 3 10-04-2019 - [facility] Conne[employer] Phone 10-04-2019 ([id number]) History SDOH Physical 0 10-04-2019 - [facility] Activity DPW 10-04-2019 (75281) Tobacco smoking status Current every day smoker 01-05-2020 - [facility] NHIS 05-02-2020 (98172) History SDOH Education 12 10-04-2019 - [facility] 10-04-2019 (38377) History SDOH Financial 4 10-04-2019 - [facility] 10-04-2019 (16922) Tobacco Comment Pipe 04-12-2009 - [facility] 04-12-2009 ([id number]) Sex Assigned At Not on file [facility] ([id number]) Exposure to SARS-CoV-2 Not sure [facility] (event) (02918) Tobacco smoking status Former smoker 05-19-2020 - [facility] NHIS 05-26-2020 ([id number]) History of tobacco use Current smoker 05-05-2020 [facility] ([id number]) The following information is from the original human readable contentNo Social History Records FoundNo Social History Records FoundNo Social History Records Found Medical Equipment Equipment Code (if Equipment Original Equipment Procedure Code ( if Dates provided) Text (if provided) Identifier (if provided) provided) Dmn-Wp-F-Kind [id number] 05-26-2020 Implant - [id number] Mesh Parietex [id number] 05-26-2020 6.6cm Small Collagen Surgical Patch [facility] Composite - [id number] History of Past Illness Problem Noted Date Resolved Date Special screening for malignant neoplasms, colon 01/29/2015 01/29/2015 Problem Noted Date Resolved Date Special screening for malignant neoplasms, colon 01/29/2015 01/29/2015 Problem Noted Date Resolved Date Special screening for malignant neoplasms, colon 01/29/2015 01/29/2015 Problem Noted Date Resolved Date Special screening for malignant neoplasms, colon 01/29/2015 01/29/2015 Problem Noted Date Resolved Date Special screening for malignant neoplasms, colon 01/29/2015 01/29/2015 Advance Directives No Advanced Directives Records Found Documents on File Type Date Recorded Patient Commercial Lease Administrator Explanati on Advance Directive(s) 02/18/2018 8:16 AM Documents on File Type Date Recorded Patient Commercial Lease Administrator Explanati on Advance Directive(s) 02/18/2018 8:16 AM Advance Directive(s) 05/26/2020 7:56 AM Instructions Patient InstructionsKaren Medina (Min) - 05/19/2020 1:53 PM EDTPATIENT PREOPERATIVE INSTRUCTIONS Dr. Valdivia has scheduled you for your procedure at this surgery center: [facility]: [phone] -- [address] [id number]. Please read below carefully for your personalized instructions. Dietary Restrictions: - No solid food after midnight. - You may have 12 ounces of clear liquids (water, clear juices such as apple juice or gatorade, carbonated beverages, clear tea, black coffee, jello) until 2 hours before scheduled arrival at facility. - Do not drink any alcohol after midnight the night before your surgery. Medications: Unless instructed differently below, stay on all of your medications until your surgery. Approved medications to take the morning of surgery with a sip of water: Lexapro, Sinemet, Avodart If you start any new medications after today's visit, please contact the surgeon's office. Blood Thinning Medications: - Stop NSAIDS (Ibuprofen, Advil, Aleve, Motrin, Celebrex, Mobic, etc.) 7 days before surgery, as directed by your surgeon. - Stop Aspirin 7 days before surgery, as directed by your surgeon. - Stop Vitamin E, ALL multi-vitamins, herbals and dietary supplements 14 days before surgery. - You may take Tylenol (Acetaminophen) or any of your pain medications that do not contain aspirin or NSAIDS as needed. Important Reminders: - Candy, mints, and tobacco products are NOT permitted the morning of surgery. - Hearing aids, dentures and glasses may be worn the morning of surgery. - NO jewelry, body piercings, makeup, hairpins or contacts are to be worn the day of surgery. If you develop symptoms such as a fever, cold, or flu, or have other changes to your health within TWO DAYS of scheduled surgery or the morning of surgery, please contact the surgery center above. Personal Belongings: -Please have photo ID and insurance cards. -If you do not have a copy of advance directives on file with us, please bring a copy with you on the day of surgery. - Leave ALL valuables and money at home or with family members. For Outpatient Procedures: - YOU MUST HAVE A RESPONSIBLE CREDENTIALING MANAGER TAKE YOU HOME. A PERINATAL COORDINATOR OR HIGH SCHOOL MUSIC TEACHER CANNOT BE MADE A RESPONSIBLE CREDENTIALING MANAGER. - We recommend that a responsible person stays with you overnight to take care of you. - You cannot stay in a hotel alone after outpatient surgery. You will not be permitted to have your surgery, if you do not have someone to take care of you. Arrival Time for Surgery: - The Surgery Center or hospital where you are having surgery will call the afternoon before surgery(or Sunday for Sunday surgery) with a scheduled arrival time. - If you have not heard by 4 pm, please contact the surgery center above. Please be aware that emergency situations arise, which may delay or change your surgical time. If this happens, we will notify you as soon as possible and regret any inconvenience. If you already have an Advance Directive, please fax a copy to [phone] or email to for it to be added to your chart. If you do not have an Advance Directive, you can findthe appropriate form and more information at [email or web address]. We recommend that you complete the Advance Directive form found on the website and bring it with you the day of your surgery.It can be witnessed and scanned into your chart that day. Karen Medina APRN.MIN documented in this encounter Assessments Diagnosis Preoperative examination - Primary Preoperative examination, unspecified Ventral hernia without obstruction or ga ngrene Ventral hernia, unspecified, without men tion of obstruction or gangrene Chronic constipation Unspecified constipation Parkinson disease (HCC) Paralysis agitans Inguinal hernia without obstruction or g angrene, recurrence not specified, unspecified laterality Diagnosis Ventral hernia without obstruction or ga ngrene - Primary Ventral hernia, unspecified, without men tion of obstruction or gangrene Inguinal hernia without obstruction or g angrene, recurrence not specified, unspecified laterality Ventral hernia without obstruction or ga ngrene Ventral hernia, unspecified, without men tion of obstruction or gangrene Diagnosis Benign prostatic hyperplasia with urinar y frequency Summary Purpose Family History No Family History Records FoundNo Family History Records Found Additional Source Comments FOR RECORDS PERTAINING TO PATIENTS WHO ARE OR HAVE BEEN ENROLLED IN A CHEMICAL DEPENDENCY/SUBSTANCE ABUSE PROGRAM, SOME INFORMATION MAY BE OMITTED. This clinical summary was aggregated from multiple sources. Caution should be exercised in using it in the provision of clinical care. This summary normalizes information from multiple sources, and as a consequence, information in this document may materially changethe coding, format and clinical context of patient data. In addition, data may be omittedin some cases. CLINICAL DECISIONS SHOULD BE BASED ON THE PRIMARY CLINICAL RECORDS. [facility] provides no warranty or guarantee of the accuracy or completeness of information in this document. UNRECOGNIZED CONTENT PROVIDED BELOW FOR UNRECOGNIZED SECTION Source Comments In the event this information is protected by the Federal Confidentiality of Alcohol and Drug Abuse Patient Records regulations: The Federal rules restrict any use of the information to criminally investigate or prosecute any alcohol or drug abuse patient.[facility] the event this information is protected by the Federal Confidentiality of Alcohol and Drug Abuse Patient Records regulations: The Federal rules restrict any use of the information to criminally investigate or prosecute any alcohol or drug abuse patient.[facility] HospitalIn the event this information is protected by the Federal Confidentiality of Alcohol and Drug Abuse Patient Records regulations: The Federal rules restrict any use of the information to criminally investigate or prosecute any alcohol or drug abuse patient.[facility] HospitalIn the event this information is protected by the Federal Confidentiality of Alcohol and Drug Abuse Patient Records regulations: The Federal rules restrict any use of the information to criminally investigate or prosecute any alcohol or drug abuse patient.[facility] HospitalIn the event this information is protected by the Federal Confidentiality of Alcohol and Drug Abuse Patient Records regulations: The Federal rules restrict any use of the information to criminally investigate or prosecute any alcohol or drug abuse patient.[facility] HospitalIn the event this information is protected by the Federal Confidentiality of Alcohol and Drug Abuse Patient Records regulations: The Federal rules restrict any use of the information to criminally investigate or prosecute any alcohol or drug abuse patient.[facility] HospitalIn the event this information is protected by the Federal Confidentiality of Alcohol and Drug Abuse Patient Records regulations: The Federal rules restrict any use of the information to criminally investigate or prosecute any alcohol or drug abuse patient.[facility] UNRECOGNIZED CONTENT PROVIDED BELOW FOR UNRECOGNIZED SECTION Reason for Visit Reason Onset Date Comments FYI-No Action Needed 04/28/2020 Reason Onset Date Comments Home Care 05/14/2020 Reason Comments Pre-Op Exam Reason Onset Date Comments Home Care 05/21/2020 Reason Onset Date Comments 05-24-2020 Hernia repair 05/03/2020 Reason Onset Date Comments Refill Request 08/16/2020 Refill Request 08/18/2020 UNRECOGNIZED CONTENT PROVIDED BELOW FOR UNRECOGNIZED SECTION Miscellaneous Notes Telephone Encounter - Catalino Posada - 04/28/2020 12:25 PM EDTNoted Catalino Posada MD elephone Encounter - Hilda Mays RN - 04/28/2020 9:14 AM EDTPt's daughter called, verified pt by name and birthdate. Pt's daughter wanted to let PCP know pt is s eeing Dr. Valdivia on 04-30-2020 for a possible hernia Hilda Mays RN documented in this encounterTelephone Encounter - José Mcdaniels Lpn, LPN - 05/14/2020 4:[facility] a [facility] patient from [facility] (office of Dr. Arya Pozo and Rosalba Kaufman CNP). Office visit notes were included but will need addendum added due to patients insurance and Medicare Guidelines. I tried to call the office to request this but the voice message states the office is closed already - office times listed on the voicemail are [phone] - my call was placed within that time frame. Will call back on Sunday to request additional documentation so that I can continue to proceed with the referral. Avinash Briceectronically signed by José Hurd) GERARD Mcdaniels at 05/14/2020 4:09 PM EDTdocumented in this encounterTelephone Encounter - Chary MurphyDirector Regulatory Compliance) - 05/21/2020 5:14 PM EDTSpoke with the patient to confirm SOC on 05/31/20 documented in this encounterTelephone Encounter - Rebecca Da Silva - 05/20/2020 10:47 AM EDTPer patient , patient did QUIT (for now) smoking and is all set for surgery Rebecca Da Silva elephone Encounter - Heidi Hanks - 05/10/2020 3:27 PM EDTOrder filed elephone Encounter - Rebecca Da Silva - 05/10/2020 2:43 PM EDTAmanda, can you please file this covid test for me. Thank you Rebecca Da Silva elephone Encounter - Rebecca Da Silva - 05/03/2020 3:25 PM EDTpatient schedule patient for COVID elephone Encounter - Rebecca Da Silva - 05/03/2020 3:09 PM EDTcall patient make sure he is not smoking Telephone Encounter - Rebecca Da Silva - 05/03/2020 3:07 PM [id number] HERNIA REPAIRS , spoke to patients who was very inpatient and wanted this scheduled ANALI. Explained to patient if there is any feeling that Justin is smoking the procedure will be cancelled. And we will call and check Rebecca Da Silva documented in this encounterNov[facility] Stephani Mitchell (Pennie) RN - 05/31/2020 11:01 AM EDTUpon arrival to Pt home he was out in his yard and barn burning things. Spoke with Pt and and they feel they do not need [facility] services at this time, They would like to call their insurance companyand requests cost for home care and outpatient therapy, and he will call us if they need us.Call placed to Dr Falk office and spoke Zakiya made her aware f Pt refusal. call palced to daughter Ximena phone left message to return call to and DR Falk office per zakiya request. documented in this encounterTelephone Encounter - Brandee Finn Ma - 08/18/2020 4:06 PM EST The following approved medication requests have been transmitted electronically. Signed Prescriptions Disp Refills dutasteride (AVODART) 0.5 mg capsule 90 capsule 3 Sig: Take 1 capsule by mouth once daily. DOM: No Authorizing Provider: CATALINO POSADA Ma elephone Encounter - Catalino Posada - 08/16/2020 1:44 PM ESTOK to refill as ordered Catalino Posada MD elephone Encounter - Brandee Finn Ma - 08/16/2020 11:42 AM ESTLast office visit: 01/05/2020 F/u scheduled: no follow up Brandee Finn Ma documented in this encounter UNRECOGNIZED CONTENT PROVIDED BELOW FOR UNRECOGNIZED SECTION H&P Notes Karen Medina (Circuit Board Inspector) - 05/19/2020 1:46 PM EDT HISTORY AND PHYSICAL EXAMINATION SERVICE DATE: 05/19/2020 SERVICE TIME: 1:46 PM PRIMARY CARE PHYSICIAN: Catalino Posada MD REASON FOR VISIT: Justin Thurman is a 69 year old male who is scheduled for LAPAROSCOPIC HERNIORRHAPHY, INGUINAL RECURRENT, LAPAROSCOPIC REPAIR HERNIA REDUCIBLE VENTRAL W/MESH at the request of Dr. Conway for consultation. My final recommendation will be communicated back to the requesting physician by way of shared medical record or letter. The patient has the following: ACTIVE PROBLEM LIST Parkinson Disease (Hcc) Thoracic Or Lumbosacral Neuritis Or Radiculitis, Unspecified Chronic Constipation Subjective CHIEF COMPLAINT: Pre-Op Exam HPI: 69 year old male patient presents today with ventral hernia without obstruction or gangrene. Patient with history of bilateral inguinal hernias, s/p repair. He had noted recurrent symptoms of bulging in the right groin over six months ago. He believes this is a outcome of chronic constipation d/tparkinson's disease. He often strains with bowel movements. He uses miralax as needed. The hernia isreducible and causes discomfort when it protrudes. He has had two episodes of severe discomfort in which he was seen in the ED for. He denies any hx of gerd, nausea, vomiting, diarrhea, hx of liver disease or dysphagia. PAST MEDICAL HISTORY Diagnosis Date ? Paralysis agitans (HCC) ? Parkinson disease (HCC) PAST SURGICAL HISTORY Procedure Laterality Date ? COLONOSCOP W/ OR W/O [facility] SPEC 01/29/15 Colonoscopy ? COLONOSCOP W/ OR W/O [facility] SPEC 02/18/2018 Colonoscopy ? REPAIR ING HERNIA,5+Y/O,REDUCIBL Hernia repair, inguinal, times 2 History reviewed. No pertinent family history. SOCIAL HISTORY: Social History Tobacco Use ? Smoking status: Former Smoker Years: 45.00 Types: Pipe Quit date: 05/05/2020 Years since quittin.0 ? Smokeless tobacco: Never Used ? Tobacco comment: Pipe Substance Use Topics ? Alcohol use: No Frequency: Monthly or less Binge frequency: Never ? Drug use: No MEDICATIONS: Prior to Admission medications as of 05/19/20 1416 Medication Sig Last Dose Taking escitalopram oxalate (LEXAPRO) 10 mg tablet Take 10 mg by mouth once daily. Taking Yes QUEtiapine (SEROQUEL) 25 mg tablet Take by mouth daily at bedtime. Taking Yes tamsulosin ER (FLOMAX) 0.4 mg Take 1 capsule by mouth daily at bedtime. Taking Yes dutasteride (AVODART) 0.5 mg capsule Take 1 capsule by mouth once daily. Taking Yes carbidopa-levodopa (SINEMET 25-100) 25-100 mg per tablet Take 2 tablets by mouth four times daily. Taking Yes rOPINIRole Hydrochloride (REQUIP) 3 mg tablet Take 1 tablet by mouth three times daily. Taking Yes polyethylene glycol 3350 (MIRALAX) 17 gram/dose powder Take 17 grams daily as needed for constipation Taking Yes multivitamin tablet Take 1 tablet by mouth once daily. Taking Yes senna (SENNA) 8.6 mg tab Take 1 tablet by mouth once daily as needed. Taking Yes ASPIRIN 81 MG TAB, DELAYED RELEASE Take one(1) tablet daily. Taking Yes No medication comments found. CURRENT ALLERGIES: ALLERGIES Allergen Reactions ? Penicillins REVIEW OF SYSTEMS: PAIN ASSESSMENT: General: No weight loss, malaise or fevers. Neuro: (+) PD- controlled on Rx. Follows with neurology in [place]. Symptoms stable. No history of CVA, TIA, seizures, migraines, numbness in hands or feet, MS or impaired sensorium. Respiratory: No history of current cough or dyspnea, or pneumonia in the past 6 weeks. No history ofrespiratory/pulmonary symptoms or problems. Cardiovascular: No history of HTN requiring medication, no history of angina, CHF, [place], cardiac surgery or stents. Denies rest pain, gangrene or revascularization/amputation for PVD. No history of cardiovascular symptoms or problems. GI: See HPI : No history of dysuria, frequency or incontinence,, stones or chronic kidney disease Endocrine: No history of diabetes. Has not taken steroids within the past 30 days. No history of endocrinological symptoms or problems. Hematology: No history of bleeding or clotting disorder. Pt is not taking anti- coagulation or platelet medications. No history of hematological symptoms or problems. Oncology: No history of CA metastasis, chemo within 30 days, or radiotherapy within 90 days. Has notlost 10% of body wt in 6 months. No history of oncological symptoms or problems. Psych: No history of psychiatric symptoms or problems. Musculoskeletal: Negative for joint pain or swelling, back pain or muscle pain. Skin: Negative for lesions, rash and itching. Objective PHYSICAL EXAM: VITALS: BP 116/69 Pulse 76 Temp (Src) 98 (Tympanic) Resp 16 Ht 5' 10 (1.78m) Wt 199 lb (90.3kg) SpO2 97% BMI 28.55 kg/(m^2). General: Alert and oriented, No acute distress, Healthy appearance Skin: Normal color, no rash, no lesions. HEENT: EOM, pupils equal, round and reactive., No carotid bruits Cardiovascular: Normal S1 & S2, no rubs, murmurs or gallops. No JVD. Pulse regular. Lungs: Normal breath sounds, no wheezes or crackles., No chest deformities or chest wall tenderness. Abdomen: Soft, non-tender, no rigidity., No masses or organomegaly., Positive bowel sounds Extremities: No deformity, no edema or tenderness, no joint swelling or clubbing. Neurological: Parkinson's features Pulses: Carotid and radial pulses normal +2. Pedal pulses normal +2. Diagnostic tests reviewed for today's visit: Lab Value Units Date High Low HB No results within date range. HCT No results within date range. WBC No results within date range. PLT No results within date range. NA No results within date range. K No results within date range. GLUC No results within date range. BUN No results within date range. CREAT No results within date range. PTSEC No results within date range. INR No results within date range. APTT No results within date range. ALT No results within date range. AST No results within date range. TBILI No results within date range. TSH No results within date range. Lab Value Units Date High Low HCGQT No results within date range. UHCG No results within date range. HCG, BODY* No results within date range. Lab Value Units Date High Low ABORHD No results within date range. ABSCREEN No results within date range. No results found for: HBA1C Most recent labs-In Care Everywhere 04/19/20 Most recent imaging Assessment/Plan Chronic constipation Assessment: Symptoms stable. Uses Miralax prn. Parkinson disease (HCC) Assessment: Symptoms stable currently. Follows with Neurology every 6 months in [place]. METS: Climb a flight of stairs or walk up a hill (5.50 METs) Patient denies any chest pain or undue shortness of breath with the above physical activity. ASA Class: 2 ANESTHESIA FINDINGS: Intubation History: No history of difficult intubation Significant Anesthesia Considerations: None Airway Exam: General: Normal appearance Mallampati Score is CLASS III ULBT: Class I - Lower incisors can bite the upper lip above the jose line Neck: Distance from hyoid to mentum during neck extension is at least 3 finger breaths, Limited movement turning to one or both sides Mouth: Normal tongue size and Mouth opening greater than 2 finger breaths Dentition: Intact Airway History: No history of difficult intubation STOP BANG Score: Criteria: Snoring Age over 50 (69 year old) Male gender Score = 3 PLAN This patient is optimally prepared for surgery. CONSULTS: Patient does not require consults for optimization at this time. The Following Tests/Procedures Have Been Initiated: Labs not indicated per [facility] protocol, EKG not indicated per [facility] protocol Planned Anesthetic: General Instructions Given to Patient: Instructions located in the after visit summary. Patient given verbal and written preop instructions and voices comprehension and compliance. SIGNATURE: Karen Medina APRN.MIN PATIENT NAME: Justin Thurman DATE: May 19, 2020 TIME: 1:46 PM PAGER/CONTACT #: documented in this encounter UNRECOGNIZED CONTENT PROVIDED BELOW FOR UNRECOGNIZED SECTION No Status Records FoundNo Status Records Found UNRECOGNIZED CONTENT PROVIDED BELOW FOR UNRECOGNIZED SECTION INFORMATION SOURCE DATE CREATED AUTHOR AUTHOR'S ORGANIZATIO N 05/26/2020 [facility] DATE CREATED AUTHOR AUTHOR'S ORGANIZATIO N 08/19/2020 [facility]
== END ==
LOC: OLS.WHLTSB 04:00
PROVIDERS: PCP Family Medicine; Referring Provider Family Medicine; Visit Provider Family Medicine
DX: G20 Parkinson's disease (principal); F03.91 Unspecified dementia, unspecified severity, with behavioral disturbance; M62.81 Muscle weakness (generalized); R26.2 Difficulty in walking, not elsewhere classified
CPT/HCPCS: 36415; 80048; 85025

== ENCOUNTER → 2020-08-16 05:00 | Outpatient (REF) | payer MEDICARE, OTHER, SELFPAY ==
[2020-08-16 07:41] LABS: Absolute Neutrophil Count 4.7 X10^3/uL (2.0-7.7); Basophil# 0.09 X10^3/uL; Basophil% 1.2 % (0-1); Eosinophil# 0.71 X10^3/uL; Eosinophils% 9.3 % (0-5); Hematocrit 40.3 % (40-54); Hemoglobin 12.9 g/dL (13.0-16.5); Lymphocyte % 19.6 % (19-41); Mean Corpuscular Hgb 31.1 pg (27.0-32.0); Mean Corpuscular Volume 97.1 fL (80-94); Mean Platelet Vol. 9.3 fl (6.2-12.0); Monocyte# 0.63 X10^3/uL; Monocyte% 8.2 % (0-10); NRBC Flagged by Analyzer 0 % (0-5); Neutrophil # 4.71 X10^3/uL (2.7-7.7); Neutrophil % 61.4 % (47-70); Platelet Count 273 K/mm3 (150-450); RBC Distribution Width CV 12.2 % (11.6-14.6); RBC Distribution Width SD 44.1 fl (35.1-43.9); Red Blood Count 4.15 M/mm3 (4.6-6.2); White Blood Count 7.7 K/mm3 (4.4-11.0)
[2020-08-16 07:53] LABS: Anion Gap 2 (5-15); BUN 21 mg/dL (7-18); BUN/Creat Ratio 20.6 RATIO (10-20); Chloride 108 mmol/L (98-107); Creatinine, Serum 1.02 mg/dL (0.70-1.30); EST Glomerular Filtration Rate 76 mL/min (>60); Est Glom Filt Rate - Afr Amer 92 mL/min (>60); Glucose 84 mg/dL (74-106); Potassium 4.1 mmol/L (3.5-5.1); Sodium Level 140 mmol/L (136-145)
== END ==
LOC: OLS.WHLTSB 05:00
PROVIDERS: PCP Family Medicine; Visit Provider Family Medicine
DX: G20 Parkinson's disease (principal); F03.91 Unspecified dementia, unspecified severity, with behavioral disturbance; M62.81 Muscle weakness (generalized); R26.2 Difficulty in walking, not elsewhere classified
CPT/HCPCS: 36415; 80048; 85025

== ENCOUNTER → 2020-11-16 05:00 | Outpatient (REF) | payer MEDICARE, OTHER, SELFPAY ==
[2020-11-16 06:52] LABS: Hematocrit 38.9 % (40-54); Hemoglobin 12.8 g/dL (13.0-16.5); Mean Corp Hgb Conc 32.9 g/dL (32-36); Mean Corpuscular Hgb 31.1 pg (27.0-32.0); Mean Corpuscular Volume 94.6 fL (80-94); Mean Platelet Vol. 9.6 fl (6.2-12.0); Platelet Count 227 K/mm3 (150-450); RBC Distribution Width CV 11.9 % (11.6-14.6); RBC Distribution Width SD 41.3 fl (35.1-43.9); Red Blood Count 4.11 M/mm3 (4.6-6.2); White Blood Count 6.8 K/mm3 (4.4-11.0)
[2020-11-16 07:23] LABS: Anion Gap 4 (5-15); BUN 21 mg/dL (7-18); Calcium,Total 8.9 mg/dL (8.5-10.1); Chloride 106 mmol/L (98-107); Creatinine, Serum 0.96 mg/dL (0.70-1.30); EST Glomerular Filtration Rate 82 mL/min (>60); Est Glom Filt Rate - Afr Amer 99 mL/min (>60); Glucose 96 mg/dL (74-106); Potassium 3.9 mmol/L (3.5-5.1); Sodium Level 138 mmol/L (136-145)
== END ==
LOC: OLS.WHLTSB 05:00
PROVIDERS: PCP Family Medicine; Visit Provider Family Medicine
DX: E56.9 Vitamin deficiency, unspecified (principal); G20 Parkinson's disease; F03.91 Unspecified dementia, unspecified severity, with behavioral disturbance; M62.81 Muscle weakness (generalized); R26.2 Difficulty in walking, not elsewhere classified
CPT/HCPCS: 36415; 80048; 85027

== ENCOUNTER → 2021-02-08 05:00 | Outpatient (REF) | payer MEDICARE, OTHER, SELFPAY ==
[2021-02-08 08:35] LABS: Mean Corp Hgb Conc 33.3 g/dL (32-36); Mean Corpuscular Hgb 31.6 pg (27.0-32.0); Mean Corpuscular Volume 94.7 fL (80-94); Mean Platelet Vol. 9.9 fl (6.2-12.0); Platelet Count 243 K/mm3 (150-450); RBC Distribution Width CV 11.9 % (11.6-14.6); Red Blood Count 4.12 M/mm3 (4.6-6.2); White Blood Count 7.5 K/mm3 (4.4-11.0)
[2021-02-08 08:54] LABS: Anion Gap 2 (5-15); BUN 26 mg/dL (7-18); BUN/Creat Ratio 25.5 RATIO (10-20); Chloride 105 mmol/L (98-107); Creatinine, Serum 1.02 mg/dL (0.70-1.30); EST Glomerular Filtration Rate 76 mL/min (>60); Est Glom Filt Rate - Afr Amer 92 mL/min (>60); Glucose 89 mg/dL (74-106); Potassium 3.9 mmol/L (3.5-5.1); Sodium Level 139 mmol/L (136-145); Thyroid Stim Hormone (TSH) 1.51 uIU/mL (0.358-3.74)
== END ==
LOC: OLS.WHLTSB 05:00
PROVIDERS: PCP Family Medicine; Referring Provider Family Medicine; Visit Provider Family Medicine
DX: G20 Parkinson's disease (principal); F03.91 Unspecified dementia, unspecified severity, with behavioral disturbance; M62.81 Muscle weakness (generalized); R26.2 Difficulty in walking, not elsewhere classified
CPT/HCPCS: 36415; 80048; 84443; 85027

== ENCOUNTER → 2021-02-15 05:00 | Outpatient (REF) | payer MEDICARE, OTHER, SELFPAY ==
[2021-02-15 08:51] LABS: Hematocrit 39.9 % (40-54); Hemoglobin 13.3 g/dL (13.0-16.5); Mean Corp Hgb Conc 33.3 g/dL (32-36); Mean Corpuscular Hgb 31.2 pg (27.0-32.0); Mean Corpuscular Volume 93.7 fL (80-94); Mean Platelet Vol. 9.9 fl (6.2-12.0); Platelet Count 262 K/mm3 (150-450); RBC Distribution Width CV 12.4 % (11.6-14.6); RBC Distribution Width SD 42.5 fl (35.1-43.9); Red Blood Count 4.26 M/mm3 (4.6-6.2); White Blood Count 7.4 K/mm3 (4.4-11.0)
[2021-02-15 09:05] LABS: Anion Gap 6 (5-15); BUN 21 mg/dL (7-18); BUN/Creat Ratio 22.3 RATIO (10-20); Calcium,Total 8.5 mg/dL (8.5-10.1); Chloride 104 mmol/L (98-107); Creatinine, Serum 0.94 mg/dL (0.70-1.30); EST Glomerular Filtration Rate 84 mL/min (>60); Est Glom Filt Rate - Afr Amer 101 mL/min (>60); Glucose 93 mg/dL (74-106); Sodium Level 140 mmol/L (136-145)
== END ==
LOC: OLS.WHLTSB 05:00
PROVIDERS: PCP Family Medicine; Visit Provider Family Medicine
DX: E56.9 Vitamin deficiency, unspecified (principal); G20 Parkinson's disease; F03.91 Unspecified dementia, unspecified severity, with behavioral disturbance; M62.81 Muscle weakness (generalized); R26.2 Difficulty in walking, not elsewhere classified
CPT/HCPCS: 36415; 80048; 85027

== ENCOUNTER → 2021-05-24 05:00 | Outpatient (REF) | payer MEDICARE, OTHER, SELFPAY ==
[2021-05-24 11:18] LABS: Hematocrit 40.9 % (40-54); Hemoglobin 13.5 g/dL (13.0-16.5); Mean Corpuscular Hgb 31.3 pg (27.0-32.0); Mean Corpuscular Volume 94.7 fL (80-94); Mean Platelet Vol. 10.1 fl (6.2-12.0); Platelet Count 249 K/mm3 (150-450); RBC Distribution Width SD 41.7 fl (35.1-43.9); Red Blood Count 4.32 M/mm3 (4.6-6.2); White Blood Count 7.9 K/mm3 (4.4-11.0)
[2021-05-24 11:40] LABS: Anion Gap 6 (5-15); BUN 21 mg/dL (7-18); BUN/Creat Ratio 21.7 RATIO (10-20); Chloride 102 mmol/L (98-107); Creatinine, Serum 0.97 mg/dL (0.70-1.30); EST Glomerular Filtration Rate 81 mL/min (>60); Est Glom Filt Rate - Afr Amer 98 mL/min (>60); Glucose 96 mg/dL (74-106); Potassium 4.1 mmol/L (3.5-5.1); Sodium Level 137 mmol/L (136-145)
== END ==
LOC: OLS.WHLTSB 05:00
PROVIDERS: PCP Family Medicine; Visit Provider Family Medicine
DX: E56.9 Vitamin deficiency, unspecified (principal); G20 Parkinson's disease; F03.91 Unspecified dementia, unspecified severity, with behavioral disturbance; M62.81 Muscle weakness (generalized); R26.2 Difficulty in walking, not elsewhere classified
CPT/HCPCS: 36415; 80048; 85027

== ENCOUNTER → 2021-08-23 05:00 | Outpatient (REF) | payer MEDICARE, OTHER, SELFPAY ==
[2021-08-23 09:12] LABS: Hematocrit 37.9 % (40-54); Hemoglobin 12.5 g/dL (13.0-16.5); Mean Corpuscular Hgb 31.3 pg (27.0-32.0); Mean Corpuscular Volume 94.8 fL (80-94); Mean Platelet Vol. 10.3 fl (6.2-12.0); Platelet Count 231 K/mm3 (150-450); RBC Distribution Width CV 12.2 % (11.6-14.6); RBC Distribution Width SD 42.5 fl (35.1-43.9); White Blood Count 6.8 K/mm3 (4.4-11.0)
[2021-08-23 09:29] LABS: Anion Gap 4 (5-15); BUN 20 mg/dL (7-18); BUN/Creat Ratio 20.5 RATIO (10-20); Calcium,Total 8.9 mg/dL (8.5-10.1); Chloride 105 mmol/L (98-107); Creatinine, Serum 0.98 mg/dL (0.70-1.30); EST Glomerular Filtration Rate 80 mL/min (>60); Est Glom Filt Rate - Afr Amer 97 mL/min (>60); Glucose 94 mg/dL (74-106); Potassium 3.7 mmol/L (3.5-5.1); Sodium Level 140 mmol/L (136-145)
== END ==
LOC: OLS.WHLTSB 05:00
PROVIDERS: PCP Family Medicine; Visit Provider Family Medicine
DX: E56.9 Vitamin deficiency, unspecified (principal); G20 Parkinson's disease; F03.91 Unspecified dementia, unspecified severity, with behavioral disturbance; M62.81 Muscle weakness (generalized); R26.2 Difficulty in walking, not elsewhere classified
CPT/HCPCS: 36415; 80048; 85027

== ENCOUNTER → 2021-11-15 | Outpatient (REF) | payer MEDICARE, OTHER, SELFPAY ==
[2021-11-15 06:07] LABS: Hematocrit 35.9 % (40-54); Mean Corp Hgb Conc 33.4 g/dL (32-36); Mean Corpuscular Hgb 30.9 pg (27.0-32.0); Mean Corpuscular Volume 92.5 fL (80-94); Mean Platelet Vol. 10.3 fl (6.2-12.0); Platelet Count 220 K/mm3 (150-450); RBC Distribution Width SD 41.1 fl (35.1-43.9); Red Blood Count 3.88 M/mm3 (4.6-6.2); White Blood Count 7.5 K/mm3 (4.4-11.0)
[2021-11-15 06:35] LABS: Anion Gap 2 (5-15); BUN 19 mg/dL (7-18); BUN/Creat Ratio 18.4 RATIO (10-20); Calcium,Total 8.9 mg/dL (8.5-10.1); Chloride 107 mmol/L (98-107); Creatinine, Serum 1.03 mg/dL (0.70-1.30); EST Glomerular Filtration Rate 75 mL/min (>60); Est Glom Filt Rate - Afr Amer 91 mL/min (>60); Glucose 105 mg/dL (74-106); Potassium 3.8 mmol/L (3.5-5.1); Sodium Level 140 mmol/L (136-145)
== END | disposition home or self-care (01) ==
LOC: OLS.WHLTSB 05:00
PROVIDERS: PCP Family Medicine; Visit Provider Family Medicine
DX: G20 Parkinson's disease (principal); F03.91 Unspecified dementia, unspecified severity, with behavioral disturbance; M62.81 Muscle weakness (generalized); R26.2 Difficulty in walking, not elsewhere classified
CPT/HCPCS: 36415; 80048; 85027

== ENCOUNTER → 2022-02-21 | Outpatient (REF) | payer MEDICARE, OTHER, SELFPAY ==
[2022-02-21 08:04] LABS: Hematocrit 37.6 % (40-54); Hemoglobin 12.2 g/dL (13.0-16.5); Mean Corp Hgb Conc 32.4 g/dL (32-36); Mean Corpuscular Hgb 31.3 pg (27.0-32.0); Mean Corpuscular Volume 96.4 fL (80-94); Mean Platelet Vol. 10.6 fl (6.2-12.0); Platelet Count 217 K/mm3 (150-450); RBC Distribution Width CV 12.2 % (11.6-14.6); RBC Distribution Width SD 43.1 fl (35.1-43.9); White Blood Count 7.6 K/mm3 (4.4-11.0)
[2022-02-21 08:13] LABS: Anion Gap 4 (5-15); BUN 18 mg/dL (7-18); BUN/Creat Ratio 21.4 RATIO (10-20); Calcium,Total 8.5 mg/dL (8.5-10.1); Chloride 105 mmol/L (98-107); Creatinine, Serum 0.84 mg/dL (0.70-1.30); EST Glomerular Filtration Rate 95 mL/min (>60); Est Glom Filt Rate - Afr Amer 115 mL/min (>60); Glucose 130 mg/dL (74-106); Potassium 3.6 mmol/L (3.5-5.1); Sodium Level 139 mmol/L (136-145)
== END | disposition home or self-care (01) ==
LOC: OLS.WHLTSB 05:00
PROVIDERS: PCP Family Medicine; Visit Provider Family Medicine
DX: E56.9 Vitamin deficiency, unspecified (principal)
CPT/HCPCS: 36415; 80048; 85027

== ENCOUNTER → 2022-05-23 | Outpatient (REF) | payer MEDICARE, OTHER, SELFPAY ==
[2022-05-23 11:01] LABS: Hematocrit 38.8 % (40-54); Hemoglobin 13.1 g/dL (13.0-16.5); Mean Corp Hgb Conc 33.8 g/dL (32-36); Mean Corpuscular Hgb 32.2 pg (27.0-32.0); Mean Corpuscular Volume 95.3 fL (80-94); Mean Platelet Vol. 10.3 fl (6.2-12.0); Platelet Count 242 K/mm3 (150-450); RBC Distribution Width SD 41.7 fl (35.1-43.9); Red Blood Count 4.07 M/mm3 (4.6-6.2); White Blood Count 7.2 K/mm3 (4.4-11.0)
[2022-05-23 11:31] LABS: Anion Gap 4 (5-15); BUN 19 mg/dL (7-18); BUN/Creat Ratio 18.1 RATIO (10-20); Calcium,Total 9.3 mg/dL (8.5-10.1); Chloride 105 mmol/L (98-107); Creatinine, Serum 1.05 mg/dL (0.70-1.30); EST Glomerular Filtration Rate 73 mL/min (>60); Est Glom Filt Rate - Afr Amer 89 mL/min (>60); Glucose 90 mg/dL (74-106); Potassium 4.1 mmol/L (3.5-5.1); Sodium Level 138 mmol/L (136-145)
== END ==
LOC: OLS.WHLTSB 05:00
PROVIDERS: PCP Family Medicine; Visit Provider Family Medicine
DX: E56.9 Vitamin deficiency, unspecified (principal)
CPT/HCPCS: 36415; 80048; 85027

== ENCOUNTER → 2022-06-05 | Outpatient (REF) | payer MEDICARE, OTHER, SELFPAY | LOC: OLS.WHLTSB 12:30 | PROVIDERS: PCP Family Medicine; Referring Provider Family Medicine; Visit Provider Family Medicine | DX: L72.3 Sebaceous cyst (principal); G20 Parkinson's disease; F03.91 Unspecified dementia, unspecified severity, with behavioral disturbance; F06.0 Psychotic disorder with hallucinations due to known physiological condition; M62.81 Muscle weakness (generalized); R26.2 Difficulty in walking, not elsewhere classified | CPT/HCPCS: 87070; 87077; 87186; 87205 ==

== ENCOUNTER → 2022-07-21 | Outpatient (REF) | payer MEDICARE, OTHER, SELFPAY | LOC: OLS.WHLTSB 05:00 | PROVIDERS: PCP Family Medicine; Referring Provider Internal Medicine; Visit Provider Internal Medicine | DX: G20 Parkinson's disease (principal); F06.0 Psychotic disorder with hallucinations due to known physiological condition; M62.81 Muscle weakness (generalized); R26.2 Difficulty in walking, not elsewhere classified; L72.3 Sebaceous cyst | CPT/HCPCS: 87070; 87077; 87186; 87205 ==

== ENCOUNTER → 2022-08-22 | Outpatient (REF) | payer MEDICARE, OTHER, SELFPAY ==
[2022-08-22 09:23] LABS: Hematocrit 36.2 % (40-54); Hemoglobin 11.8 g/dL (13.0-16.5); Mean Corp Hgb Conc 32.6 g/dL (32-36); Mean Corpuscular Hgb 31.4 pg (27.0-32.0); Mean Corpuscular Volume 96.3 fL (80-94); Mean Platelet Vol. 9.7 fl (6.2-12.0); Platelet Count 299 K/mm3 (150-450); RBC Distribution Width CV 12.6 % (11.6-14.6); RBC Distribution Width SD 44.6 fl (35.1-43.9); Red Blood Count 3.76 M/mm3 (4.6-6.2); White Blood Count 6.3 K/mm3 (4.4-11.0)
[2022-08-22 09:35] LABS: Anion Gap 4 (5-15); BUN 21 mg/dL (7-18); BUN/Creat Ratio 21.9 RATIO (10-20); Calcium,Total 8.8 mg/dL (8.5-10.1); Chloride 106 mmol/L (98-107); Creatinine, Serum 0.96 mg/dL (0.70-1.30); EST Glomerular Filtration Rate 81 mL/min (>60); Est Glom Filt Rate - Afr Amer 99 mL/min (>60); Glucose 93 mg/dL (74-106); Potassium 3.9 mmol/L (3.5-5.1); Sodium Level 139 mmol/L (136-145)
== END ==
LOC: OLS.WHLTSB 05:00
PROVIDERS: PCP Family Medicine; Visit Provider Family Medicine
DX: E56.9 Vitamin deficiency, unspecified (principal)
CPT/HCPCS: 36415; 80048; 85027

== ENCOUNTER 2022-10-27 22:30 | Emergency (ER) | payer MEDICARE, OTHER, SELFPAY ==
[2022-10-27] VITALS (7 sets, daily range): BP systolic 95–116; BP diastolic 54–74; PULSE 124–133; RESP 12–44; TEMP 37–38.2; O2SAT 15–95; BMI 29.2
--- NOTE | 2022-10-27 22:43 | ED.RN ---
contacted daughter listed medical contact, left message no phone call back attempted to contact who phone listed on face sheet is no longer working
--- NOTE | 2022-10-27 22:59 | ED.VIS.DYS ---
HPI History of Present Illness Chief Complaint: Shortness of Breath Informant: EMS and SNF Narrative Narrative: Patient is a 72-year-old male with history of Parkinson's disease, anxiety, GERD and UTI presenting for muscle healthy living for increased work of breathing. Patient is DNR CC. Oncoming nurse noticed that patient was having increased work of breathing and seem to be in respiratory distress and did not feel he could handle at the facility the patient was transferred here. Patient was noted to be febrile per EMS. Patient is unable to provide any history at this time. We are unable to get a hold of family. PFSH PFSH Home Medications ropinirole 3 mg tablet (Requip) 3 mg PO TID parkinsons 06/03/17 [History Last Taken 06/11/20] uawmlkhi-mfe-hkccb acid 300 mcg-lycopene 600 mcg-lutein 300 mcg tablet 1 tab PO DAILY SUPPLEMENT 10/01/19 [History Last Taken 06/11/20] tamsulosin 0.4 mg capsule 0.4 mg PO DAILY retention 11/19/19 [History Last Taken 06/10/20] polyethylene glycol 3350 17 gram oral powder packet 17 g PO DAILY PRN PRN consipation 06/11/20 [History Last Taken 06/10/20] sennosides 8.6 mg tablet 2 tab PO DAILY consipation 06/11/20 [History Last Taken 06/11/20] escitalopram oxalate 20 mg tablet 20 mg PO DAILY 06/14/20 [Rx Last Taken Unknown] cimetidine 300 mg tablet 300 mg PO 10/04/22 [History Last Taken Unknown] finasteride 5 mg tablet 5 mg PO 10/04/22 [History Last Taken Unknown] hydroxyzine pamoate 25 mg capsule 25 mg PO 10/04/22 [History Last Taken Unknown] quetiapine 50 mg tablet 50 mg PO 10/04/22 [History Last Taken Unknown] rivastigmine tartrate 3 mg capsule 3 mg PO 10/04/22 [History Last Taken Unknown] Allergy/AdvReac Type Severity Reaction Status Date / Time Penicillins [PCN] Allergy Unknown Verified 10/04/22 13:08 Surgical History (Updated 10/04/22 @ 13:17 by Sumi Jones) H/O hernia repair Social History (Updated 10/04/22 @ 13:23 by Sumi Jones) Smoking Status: Smoker, status unknown ROS ROS ED Review of Systems ROS Unobtainable: due to mental status EXAM Physical Exam Const Vital Signs: 10/27/22 22:31 10/27/22 22:34 10/27/22 22:42 Temperature 98.6 F 100.7 F H Temperature Source Temporal Axillary Pulse Rate 127 H 124 H Respiratory Rate 36 H 34 H Respiratory Effort Respiratory Depth Respiratory Pattern Blood Pressure 111/74 95/54 L Blood Pressure Mean 86 67 Pulse Ox 92 83 91 Oxygen Delivery Method Non-Rebreather Non-Rebreather Bi-pap Oxygen Flow Rate (L/min) 15 Fraction of Inspired Oxygen (FIO2) 100 10/27/22 22:46 10/27/22 22:45 10/27/22 23:09 Temperature Temperature Source Pulse Rate 124 H Respiratory Rate 44 H Respiratory Effort Short of Breath Respiratory Depth Shallow Respiratory Pattern Tachypnea Tachypnea Blood Pressure Blood Pressure Mean Pulse Ox 93 95 Oxygen Delivery Method Non-Rebreather High Flow Oxygen Flow Rate (L/min) 15 Fraction of Inspired Oxygen (FIO2) 100 10/27/22 23:21 10/28/22 00:59 Temperature Temperature Source Pulse Rate 133 H 113 H Respiratory Rate 27 H 34 H Respiratory Effort Respiratory Depth Respiratory Pattern Blood Pressure 116/61 64/45 L Blood Pressure Mean 79 51 Pulse Ox 91 93 Oxygen Delivery Method Nasal Cannula Nasal Cannula Oxygen Flow Rate (L/min) 15 15 Fraction of Inspired Oxygen (FIO2) Positive well developed Constitutional Narrative: Acute respiratory distress, ill-appearing General Appearance ED: well developed HEENT Reports dry mucous membranes HEENT Narrative: Coffee-ground drool noted in the corners of his mouth Perioral cyanosis present atraumatic Mouth ED: Yes dry mucous membranes Mouth: dry mucous membranes Eyes PERRL and EOMs intact bilaterally Neck supple and no JVD Resp clear to auscultation bilaterally Resp Narrative: Breath sounds throughout. Intermittent wet upper rest or noises that will clear spontaneously. Tachypneic Cardio regular rhythm Rate: tachycardic GI GI Narrative: Distended, diffusely tender, firm Extremity normal to inspection Neuro Neuro Narrative: Somnolent, confused, sporadically mumbles incomprehensible words Motor Exam: general weakness Skin no wounds MDM MDM MDM Narrative Medical decision making narrative: Patient is evaluated for respiratory distress from nursing facility. Paperwork provided shows that he is DNR CC. For the first hour or so he is in the ER we are unable to get a hold of any family. Initially, patient is placed on BiPAP for his hypoxia/work of breathing and is given a dose of morphine for comfort as well as Toradol for his fever. I do not think he will tolerate p.o. at this time. Further work-up looking for his source of respiratory distress is not done as he is DNR CC and I am not able to get a hold of anyone. We were eventually able to get a hold of his and she came to the ER. She confirms that patient would just like to be comfortable but seems unsure about what to do next. She states his daughter is there medical POA but she is currently on a cruise ship. They have a son that lives in [place]. She will attempt to call his son. In the meantime patient is given a dose of IV Ativan for further comfort with his work of breathing. I question the patient has an acute intra-abdominal surgical process given his distended/tender abdomen and the coffee-ground emesis in his mouth however he is not currently retching or having any nausea. Possibly he aspirated that is why he is in respiratory distress/hypoxia right now. Extensively discussed with the patient's as well as his son over the phone and the patient's sister. Discussed how we will obtain a hospice consult and goals of care to keep of as comfortable as possible. Patient will be signed out to oncoming physician pending hospice consult. At time of disposition patient continues to be tachycardic and is hypotensive. Critical Care Time Critical Care Time: Yes Critical care time (excluding procedures): 30-74 minutes (40), Discussing w/Patient &/or Family/Supervisor [employer] and Arranging Admission or Transfer (Hospice consult) Discharge Plan Triage Chief Complaint: Shortness of Breath ED Provider: Zoila Adames Dx/Rx/DC Orders Clinical Impression: Acute respiratory failure, Acute hypotension, Encounter for end of life care, Fever Prescriptions: No Action finasteride 5 mg tablet 5 mg PO hydroxyzine pamoate 25 mg capsule 25 mg PO rivastigmine tartrate 3 mg capsule 3 mg PO cimetidine 300 mg tablet 300 mg PO quetiapine 50 mg tablet 50 mg PO ropinirole [Requip] 3 MG tablet 3 mg PO TID cwtqdgcp-qpd-HQ-lycopen-lutein 1 EACH tablet 1 tab PO DAILY tamsulosin 0.4 MG capsule 0.4 mg PO DAILY sennosides 1 TABLET tablet 2 tab PO DAILY polyethylene glycol 3350 17 GM packet 17 g PO DAILY PRN PRN (Reason: consipation ) escitalopram oxalate 20 MG tablet 20 mg PO DAILY 0RF Primary Care Provider: Julieta Tesfaye Referrals: Julieta Tesfaye MD [Primary Care Provider] - Disposition Disposition: Hospice in Medical Facility
[2022-10-27] MEDS: Ketorolac 15 MG/ML Vial IV (23:14)
[2022-10-27] MEDS: Morphine 2 MG/ML Syringe IV (23:20)
[2022-10-28] MEDS: LORazepam 2 MG/ML Syringe 0.5 MG IV ×3 (00:13→07:16)
--- NOTE | 2022-10-28 00:23 | ED.RN ---
HOSPICE CONSULT PLACED AT THIS TIME
--- NOTE | 2022-10-28 00:58 | ED.RN ---
HOSPICE CALLED TO SEE PATIENT SOONER, THEY HAVE NURSE CALL CENTER SPECIALIST AT 4 AM AND WILL CALL US AT THAT TIME
[2022-10-28 00:59] VITALS: BP 64/45; PULSE 113; RESP 34; O2SAT 93
[2022-10-28 02:01] VITALS: BP 85/57; PULSE 106; RESP 42; O2SAT 95
[2022-10-28 05:29] VITALS: BP 99/86; PULSE 95; RESP 36; O2SAT 92
[2022-10-28 07:18] VITALS: BP 52/25; PULSE 92; RESP 22; O2SAT 85
[2022-10-28 07:22] VITALS: RESP 44; O2SAT 92
[2022-10-28 07:44] VITALS: BP 55/46; PULSE 82; RESP 26; O2SAT 93
== END 2022-10-28 09:55 | disposition hospice, inpatient (51) ==
PROVIDERS: Emergency Provider Emergency Medicine; PCP Internal Medicine; Visit Provider Emergency Medicine
DX: J96.01 Acute respiratory failure with hypoxia (principal); R50.9 Fever, unspecified; Z51.5 Encounter for palliative care; F41.9 Anxiety disorder, unspecified; F17.200 Nicotine dependence, unspecified, uncomplicated; I95.9 Hypotension, unspecified; Z66 Do not resuscitate
CPT/HCPCS: 94002; 96374; 96376; 99285; A4216